=== PATIENT | female | born 1990 | race Caucasian/White ===

== ENCOUNTER 2023-08-20 13:01 | Outpatient (RCR) | payer BC, SELFPAY ==
[2023-08-20 14:12] LABS: HCG Quantitative 61 mIU/mL
[2023-08-22 15:39] LABS: HCG Quantitative 23 mIU/mL
== END 2023-08-27 17:26 | disposition home or self-care (01) ==
LOC: LAB 13:01
PROVIDERS: PCP Family Medicine; Visit Provider Obstetrics & Gynecology
DX: N92.6 Irregular menstruation, unspecified (principal)
CPT/HCPCS: 36415; 84702

== ENCOUNTER 2024-01-28 11:30 | Outpatient (OUT) | payer BC, SELFPAY ==
--- NOTE | 2024-01-28 11:00 | US_ITS ---
The [address] [address] Patient Name: NOHELIA CASTILLO MRN: [id number] date: 1990 Sex: F Assigned Patient Location: [facility] Current Patient Location: [facility] Accession/Order Number: [id number] Exam Date: 01/28/2024 11:00 Report Date: 01/28/2024 11:59 At the request of: TONY SORIANO Procedure: US OB transvaginal EXAMINATION: US OB transvaginal HISTORY: MISSED MENSES COMPARISON: No relevant comparison available. FINDINGS: GESTATIONAL SAC: Present and normal appearing. YOLK SAC: Present and normal appearing. POLE: Present and normal appearing. CARDIAC: Present. UTERUS: Normal size and appearance. OVARIES: Right: Corpus lutein cyst. Left: Normal. CERVIX: 3.5 cm in length and closed. CUL-DE-SAC: Normal. OTHER: None. AGE BY LMP: 9 weeks 1 day PAUL BY LMP: 08/31/2024 AGE BY US CRL: 9 weeks 0 days PAUL BY US CRL: 09/01/2024 US/US OB transvaginal IMPRESSION: 1. Single live intrauterine . Electronically authenticated by: DAVID REYES Date: 01/28/2024 11:59
--- OUTSIDE RECORDS SUMMARY | 2024-01-28 11:35 | XMS_ITS | CCD ---
Author Organization [facility] Informat ion Partnership [facility] Care Team Providers Care Solid Waste Facility Supervisor Name Role Phone BABATUNDE BISHOP Attending Unavailable DR GALA TALLEY Primary Care Unavailable RICHARD ALVAREZ Consulting UnavailBABATUNDE Tena Admitting Unavailable DAVID LANIER Consulting Unavailable SHAIKH HIDALGO Attending Unavailable Medications Current Medications Medication Drug Class(es) Dates Sig (Normalized) Sig (Original) 12 hr buPROPion hydrochloride 150 mg extended release oral tablet (1 source) Aminoketone Start: 4 take 1 tablet by mouth once daily Bupropion Hcl (Wellbutrin Sr) 150 mg tablet sustained-release 12 hr Active 150 MG PO Daily October 25, 2023 12:00am methylPREDNISolone 4 mg oral tablet (1 source) Corticosteroid Start: 4 take 1 tablet by mouth once Methylprednisolone (Medrol (Geraldo)) 4 mg tablets,dose pack Active 0 PO per package directions 1 October 25, 2023 12:00am PO PER PKG DIR for 6 days Problems Problem Classification Problem Date Documented Da te Episodic/Chronic E Codes: Natural/environment (1 source) Overexertion from prolonged static or awkward postures, initial encounter; Translations: [OVEREXERT PROLNG STAT/AWK PST INIT] Onset: 09-26-2022 Episodic E Codes: Unspecified (1 source) Activity, walking an animal; Translations: [ACTIVITY WALKING AN ANIMAL] Onset: 09-26-2022 Episodic Other non-traumatic joint disorders (4 sources) Pain in right knee; Translations: [PAIN IN RIGHT KNEE] Onset: 09-25-2022 Episodic Sprains and strains (1 source) Sprain of unspecified site of right knee, initial encounter; Translations: [SPRAIN UNS SITE RT KNEE INITIAL] Onset: 09-26-2022 Episodic Results Test Name Value Interpretation Reference Range Facility No Panel InformationOrdered By: Caitlin Art on 10-25-2023 Quick Strep (POC) [facility] XR KNEE RT 4V or >on 023 XR KNEE RT 4V or > XR KNEE RT 4V or >: HISTORY: Pain in right knee. COMPARISON: None available. TECHNIQUE: 4 radiographic view(s) obtained. FINDINGS: BONES/JOINT SPACES: On the patella sunrise view there is mild cortical displacement in the lateral femoral condyle which may be artifactual and less likely due to an acute fracture. There is otherwise no acute fracture or dislocation. Joint spaces appear normal. There are no other significant findings. SOFT TISSUES: Normal. IMPRESSION: 1. Mild cortical displacement on the patellofemoral sunrise view in the lateral femoral condyle which may be artifactual but a mildly displaced fracture cannot be excluded. Recommend correlation with point tenderness in this region and consider follow up radiographs in 7-10 days. 2. Otherwise no acute osseous abnormality. Electronically authenticated by: DAVID LANIER Date: 2022-09-25 22:04 Normal [facility] Vital Signs Date Time Vital Sign Value Performing Clinician Faci lity 10-25-2023 10:40-0400 Body height 162.56 cm [facility] 10-25-2023 10:40-0400 Body mass index (BMI) [Ratio] 25.7 kg/m2 [facility] 10-25-2023 10:40-0400 Body temperature 98.2 [degF] [facility] 10-25-2023 10:40-0400 Body weight 68.03 kg [facility] 10-25-2023 10:40-0400 Heart rate 89 /min [facility] 10-25-2023 10:40-0400 Respiratory rate 16 /min [facility] 10-25-2023 10:40-0400 SaO2% (BldA) [Mass fraction] 99 % [facility] Encounters Encounter Date Encounter Type Care Provider Facility Start: 12-17-2023 End: 12-17-2023 ambulatory SHAIKH GWEN Not Available Start: 10-25-2023 End: 10-25-2023 ambulatory [facility] Work Phone: Start: 10-25-2023 End: 10-25-2023 Patient encounter procedure [facility] Work Phone: Start: 09-25-2022 End: 09-25-2022 ambulatory BABATUNDE DIAB . Facility: Procedures Date Procedure Procedure Detail Performing Clinician Start: 10-25-2023 Quick Strep (POC) Payers Date Payer Category Payer Unknown [id number] [id number] [id number] 1990 Unknown [id number] [id number] [id number] 1957 Unknown [id number] Social History Date Type Detail Facility Start: 10-25-2023 Tobacco smoking stat us NHIS Never smoked tobacco (finding) [facility] Start: 1990 Sex Assigned At Female F [facility] Evaluation note Note Date & Type Note Facility Evaluation note No assessment information availa ble [facility] Work Phone: Summary Purpose Family History No Family History Records Found Relationship Condition Age at Onset Recorded Date/T steve father Diabetes mellitus Unknown Cerebrovascular accident (CVA) Unknown Advance Directives No Advanced Directives Records Found Advance Directive Response Recorded Date/ Time Advance Directives No October 24 9:52am Chief Complaint and Reason for Visit Chief Complaint Sore throat, fever, congestion Additional Source Comments INFORMATION SOURCE (unrecogn ized section and content) DATE CREATED AUTHOR 09/27/[address] [facility] DATE CREATED AUTHOR AUTHOR'S ORGANIZ ATION 12/20/2023 [facility] EPIC Care Teams (unrecognized sec tion and content) Team Status: Active Member Role Status Dates Gala Talley MD Primary Care Provider Active Team Status: Inactive Member Role Status Dates Gala Talley MD Primary Care Provider Active S tart: October 25, 2023 End: October 25, 2023 SIMI White Attending Provider Active S tart: October 25, 2023 End: October 25, 2023 Goals (unrecognized section and content) Goals may be documented in a n alternate section FOR RECORDS PERTAINING TO PATIENTS WHO ARE OR HAVE BEEN ENROLLED IN A CHEMICAL DEPENDENCY/SUBSTANCEABUSE PROGRAM, SOME INFORMATION MAY BE OMITTED. This clinical summary was aggregated from multiple sources. Caution should be exercised in using it in the provision of clinical care. This summary normalizes information from multiple sources, and as a consequence, information in this document may materially change the coding, format and clinical context of patient data. In addition, data may be omitted in some cases. CLINICAL DECISIONS SHOULD BE BASED ON THE PRIMARY CLINICAL RECORDS. [facility] [employer] [facility]. provides no warranty or guarantee of the accuracy or completeness of information in this document.
== END 2024-01-28 11:31 | disposition home or self-care (01) ==
LOC: NOMS 11:31
PROVIDERS: PCP Family Medicine; Visit Provider Obstetrics & Gynecology
DX: Z34.91 Encounter for supervision of normal pregnancy, unspecified, first trimester (principal); Z3A.09 9 weeks gestation of pregnancy; N92.6 Irregular menstruation, unspecified
CPT/HCPCS: 76817

== ENCOUNTER 2024-02-04 11:20 | Outpatient (OUT) | payer BC, SELFPAY ==
[2024-02-04 11:51] LABS: BOX Test Sent Out Y
[2024-02-04 12:07] LABS: Estimated Average Glucose 103 mg/dL; Glycohemoglobin A1C 5.2 % (4.5-6.2)
[2024-02-04 12:09] LABS: Basophils Percent Auto 0.3 % (0.2-2.0); Eosinophils Absolute Auto 0.1 10^3/uL (0.0-0.7); Eosinophils Percent Auto 1.5 % (0.9-7.0); Hematocrit 35.9 % (36.0-48.0); Hemoglobin 11.5 g/dL (12.0-16.0); Immature Granulocytes Abs Auto 0.02 10^3/uL (0.00-0.03); Immature Granulocytes Pct Auto 0.3 % (0.0-0.5); Lymphocytes Absolute Auto 1.5 10^3/uL (1.2-3.8); Mean Corpuscular Hemoglobin 26.2 pg (26.7-34.0); Mean Corpuscular Volume 81.8 fL (81.0-99.0); Mean Platelet Volume 10.3 fL (9.5-13.5); Monocytes Absolute Auto 0.3 10^3/uL (0.3-0.8); Monocytes Percent Auto 4.6 % (1.7-12.0); Neutrophils Absolute Auto 5.5 10^3/uL (1.4-6.5); Neutrophils Percent Auto 73.3 % (43.0-75.0); Platelet Count 266 10^3/uL (150-450); Red Blood Count 4.39 10^6/uL (4.20-5.40); Red Cell Distribution Width 15.4 % (11.0-15.0); White Blood Count 7.5 10^3/uL (4.0-11.0)
[2024-02-05 05:07] LABS: HIV Ab/p24 Ag Screen Non Reactive (Non Reactive); Rubella Antibodies, IgG 1.91 index (Immune >0.99)
[2024-02-05 06:09] LABS: HBsAg Screen Negative (Negative); HCV Antibody Non Reactive (Non Reactive)
[2024-02-05 12:10] LABS: Rapid Plasma Reagin, Quant Non Reactive titer (NonRea<1:1)
== END 2024-02-04 11:21 | disposition home or self-care (01) ==
LOC: LAB 11:22
PROVIDERS: PCP Family Medicine; Visit Provider Obstetrics & Gynecology
DX: Z34.80 Encounter for supervision of other normal pregnancy, unspecified trimester (principal)
CPT/HCPCS: 36415; 83036; 85025; 86592; 86762; 86803; 86850; 86900; 86901; 87086; 87340; 87389

== ENCOUNTER 2024-03-31 19:13 | Outpatient (REF) | payer BC, SELFPAY ==
--- OUTSIDE RECORDS SUMMARY | 2024-03-31 19:17 | XMS_ITS | CCD ---
Author Organization [facility] Informat ion Partnership [facility] Care Team Providers Care Diamond Sawer Name Role Phone BABATUNDE BISHOP Attending Unavailable DR GALA TALLEY Primary Care Unavailable RICHARD ALVAREZ Consulting UnavailBABATUNDE Tena Admitting Unavailable DAVID LANIER Consulting Unavailable SHAIKH HIDALGO Attending Unavailable TONY SORIANO Attending Unavailable Medications Current Medications Medication Drug [...] Caitlin Art on 10-25-2023 Quick Strep (POC) [facility] XR KNEE RT 4V or >on [...] by: DAVID LANIER Date: 2022-09-25 22:04 Normal [facility] Vital Signs Date Time Vital Sign Value Performing Clinician Faci lity 10-25-2023 10:40-0400 Body height 162.56 cm [facility] 10-25-2023 10:40-0400 Body mass index (BMI) [Ratio] 25.7 kg/m2 [facility] 10-25-2023 10:40-0400 Body temperature 98.2 [degF] [facility] 10-25-2023 10:40-0400 Body weight 68.03 kg [facility] 10-25-2023 10:40-0400 Heart rate 89 /min [facility] 10-25-2023 10:40-0400 Respiratory rate 16 /min [facility] 10-25-2023 10:40-0400 SaO2% (BldA) [Mass fraction] 99 % [facility] Encounters Encounter Date Encounter Type Care Provider Facility Start: 03-03-2024 End: 03-03-2024 ambulatory TONY SORIANO Not Available Start: 01-28-2024 End: 01-28-2024 ambulatory SHAIKH KRAIGWAD Not Available Start: 12-17-2023 End: 12-17-2023 ambulatory SHAIKH KRAIGWAD Not Available Start: 10-25-2023 End: 10-25-2023 ambulatory [facility] Work Phone: Start: 10-25-2023 End: 10-25-2023 Patient encounter procedure [facility] Work Phone: Start: 09-25-2022 End: 09-25-2022 ambulatory BABATUNDE DIAB . Facility: Procedures Date Procedure Procedure Detail Performing Clinician Start: 10-25-2023 Quick Strep (POC) Payers Date Payer Category Payer Unknown [id number] 2.16.84 [id number] 1990 Unknown [id number] 2.16.84 [id number] 1990 Unknown [id number] 2.16.84 [id number] 1990 Unknown [id number] 2.16.84 [id number] 1957 Unknown [id number] Social History Date Type Detail Facility Start: 10-25-2023 Tobacco smoking stat us WVIS Never smoked tobacco (finding) [facility] Start: 1990 Sex Assigned At Female F [facility] Evaluation note Note Date & Type Note Facility Evaluation note No assessment information availa [facility] Work Phone: Summary Purpose Family History No Family History Records Found Relationship Condition Age at Onset Recorded Date/T steve father Diabetes mellitus Unknown Cerebrovascular accident (CVA) Unknown Advance Directives No Advanced Directives Records Found Advance Directive Response Recorded Date/ Time Advance Directives No October 24 024 9:52am Chief Complaint and Reason for Visit Chief Complaint Sore throat, fever, congestion Additional Source Comments INFORMATION SOURCE (unrecogn ized section and content) DATE CREATED AUTHOR 09/27/[address] [facility] DATE CREATED AUTHOR AUTHOR'S ORGANIZ ATSANDRA 03/06/2024 [facility] d[facility] EPIC Care Teams (unrecognized sec tion and content) Team Status: Active Member Role Status Dates Gala Talley MD Primary Care Provider Active Team Status: Inactive Member Role Status Dates Gala Talley MD Primary Care Provider Active S tart: October 25, 2023 End: October 25, 2023 ZELDA WhiteC Attending Provider Active S tart: October 25, [...] BE BASED ON THE PRIMARY CLINICAL RECORDS. [employer] provides no warranty or guarantee of the accuracy or completeness of information in this document.
[2024-04-05 10:07] LABS: Age Gdln ACOG Testing Note (.); HPV Aptima Negative (Negative); IGP, Aptima HPV, rfx 16/18,45 Note (.)
== END 2024-03-31 19:14 | disposition home or self-care (01) ==
LOC: LAB 19:13
PROVIDERS: PCP Family Medicine; Visit Provider Physician Assistant
DX: Z01.419 Encounter for gynecological examination (general) (routine) without abnormal findings (principal)
CPT/HCPCS: 87624; 88175

== ENCOUNTER 2024-04-14 11:01 | Outpatient (OUT) | payer BC, SELFPAY ==
--- OUTSIDE RECORDS SUMMARY | 2024-04-14 11:06 | XMS_ITS | CCD ---
Author Organization [facility] Informat ion Partnership [facility] Care Team Providers Care Accounts Payable Administrator Name Role Phone BABATUNDE BISHOP Attending Unavailable DR PATRICK TALLEY Primary Care Unavailable RICHARD ALVAREZ Consulting UnavailBABATUNDE Tena Admitting Unavailable DAVID LANIER Consulting Unavailable SHAIKH HIDALGO Attending Unavailable TONY SORIANO Attending Unavailable ZAIDA MCCONNELL Attending Unavailable Medications Current Medications Medication Drug [...] Caitlin Art on 10-25-2023 Quick Strep (POC) [facility] XR KNEE RT 4V or >on [...] by: DAVID LANIER Date: 2022-09-25 22:04 Normal [facility] Vital Signs Date Time Vital Sign Value Performing Clinician Faci lity 10-25-2023 10:40-0400 Body height 162.56 cm [facility] 10-25-2023 10:40-0400 Body mass index (BMI) [Ratio] 25.7 kg/m2 [facility] 10-25-2023 10:40-0400 Body temperature 98.2 [degF] [facility] 10-25-2023 10:40-0400 Body weight 68.03 kg [facility] 10-25-2023 10:40-0400 Heart rate 89 /min [facility] 10-25-2023 10:40-0400 Respiratory rate 16 /min [facility] 10-25-2023 10:40-0400 SaO2% (BldA) [Mass fraction] 99 % [facility] Encounters Encounter Date Encounter Type Care Provider Facility Start: 03-31-2024 End: 03-31-2024 ambulatory ZAIDA MCCONNELL Not Available Start: 03-03-2024 End: 03-03-2024 ambulatory TONY CHRISTIE Not Available Start: 01-28-2024 End: 01-28-2024 ambulatory SHAIKH GWEN Not Available Start: 12-17-2023 End: 12-17-2023 ambulatory SHAIKH MILDREDD Not Available Start: 10-25-2023 End: 10-25-2023 ambulatory [facility] Work Phone: Start: 10-25-2023 End: 10-25-2023 Patient encounter procedure [facility] Work Phone: Start: 09-25-2022 End: 09-25-2022 ambulatory BABATUNDE DIAB . Facility: Procedures Date Procedure Procedure Detail Performing Clinician Start: 10-25-2023 Quick Strep (POC) Payers Date Payer Category Payer Unknown [id number] 2.16.84 [id number] 1990 Unknown [id number] 2.16.84 [id number] 1990 Unknown [id number] 2.16.84 [id number] 1990 Unknown [id number] 2.16.84 [id number] 1992 Unknown [id number] 2.16.84 [id number] 1959 Unknown [id number] Social History Date Type Detail Facility Start: 10-25-[facility]23 [facility] Start: 1990 Sex Assigned At Female F [facility] Evaluation note Note Date & Type Note Facility Evaluation note No assessment information availa ble [facility] Work Phone: Summary Purpose Family History No Family History Records Found Relationship Condition Age at Onset Recorded Date/T steve father Diabetes mellitus Unknown Cerebrovascular accident (CVA) Unknown Advance Directives No Advanced Directives Records Found Advance Directive Response Recorded Date/ Time Advance Directives No October 24, 2 024 9:52am Chief Complaint and Reason for Visit Chief Complaint Sore throat, fever, congestion Additional Source Comments INFORMATION SOURCE (unrecogn ized section and content) DATE CREATED AUTHOR 09/27/[address] [facility] DATE CREATED AUTHOR AUTHOR'Naun SHERMAN 04/01/2024 [facility] Specialists EPIC Care Teams (unrecognized sec tion and content) Team Status: Active Member Role Status Dates Patrick Talley MD Primary Care Provider Active Team Status: Inactive Member Role Status Dates Patrick Talley MD Primary Care Provider Active S [...] BE BASED ON THE PRIMARY CLINICAL RECORDS. [employer] provides no warranty or guarantee of the accuracy or completeness of information in this document.
--- NOTE | 2024-04-14 11:07 | US_ITS ---
[address] [address] Patient Name: NOHELIA CASTILLO MRN: [id number] date: 1990 Sex: F Assigned Patient Location: [facility] Current Patient Location: [facility] Accession/Order Number: [id number] Exam Date: 04/14/2024 11:07 Report Date: 04/14/2024 13:22 At the request of: ZAIDA MCCONNELL Procedure: US OB anatomy EXAMINATION: US OB anatomy, US OB cervical length HISTORY: ANATOMY COMPARISON: No relevant comparison available. TECHNIQUE: Transabdominal sonographic examination was performed for obstetrical and evaluation. FINDINGS: Number: 1 Heart Rate: 140 bpm H.B. /min Amniotic Fluid Volume: Subjectively normal position: Breech presentation, longitudinal lie Placental Location: Anterior, the placental edge is 2.7 cm from the internal os Cervix Length: 4.34 cm , closed Normal anatomy: Lateral ventricles, cerebellum, posterior fossa, nose, lips, orbits, four-chamber heart, RVOT, LVOT, diaphragm, stomach, kidneys, abdominal cord insertion, bladder, umbilical arteries, three-vessel cord, spine, extremities BIOMETRY: BPD: 4.86 cm; 20 weeks 5 days; 72.60 % HC: 17.93 cm; 20 weeks 3 days 52.80 % AC: 15.49 cm; 20 weeks 5 days; 62 % FL: 3.40 cm; 20 weeks 5 days; 61.60 % EFW:372.31 g; 73.80 %, 13 ounces FL/AC: 21.95 FL/BPD: 69.96 HC/AC: 1.16 GESTATIONAL AGE: Age by EDC: 20 weeks 1 day PAUL by EDC: 2024-08-31 Age by current US: 20 weeks 5 days PAUL by current US: 2024-08-27 US/US OB anatomy IMPRESSION: Normal anatomy scan Closed cervix measuring 4.3 cm in length *Reference: [employer] Practice Guideline for the performance of Obstetric Ultrasound Examinations, April 27, 2007. Electronically authenticated by: ALLISON COX Date: 04/14/2024 13:22
--- NOTE | 2024-04-14 11:07 | US_ITS ---
[address] [address] Patient Name: NOHELIA CASTILLO MRN: [id number] date: 1990 Sex: F Assigned Patient Location: [facility] Current Patient Location: [facility] Accession/Order Number: [id number] Exam Date: 04/14/2024 11:07 Report Date: 04/14/2024 13:22 At the request of: ZAIDA MCCONNELL Procedure: US OB cervical length EXAMINATION: US OB anatomy, US OB cervical length HISTORY: ANATOMY COMPARISON: No relevant comparison available. TECHNIQUE: Transabdominal sonographic examination was performed for obstetrical and evaluation. FINDINGS: Number: 1 Heart Rate: 140 bpm H.B. /min Amniotic Fluid Volume: Subjectively normal position: Breech presentation, longitudinal lie Placental Location: Anterior, the placental edge is 2.7 cm from the internal os Cervix Length: 4.34 cm , closed Normal anatomy: Lateral ventricles, cerebellum, posterior fossa, nose, lips, orbits, four-chamber heart, RVOT, LVOT, diaphragm, stomach, kidneys, abdominal cord insertion, bladder, umbilical arteries, three-vessel cord, spine, extremities BIOMETRY: BPD: 4.86 cm; 20 weeks 5 days; 72.60 % HC: 17.93 cm; 20 weeks 3 days 52.80 % AC: 15.49 cm; 20 weeks 5 days; 62 % FL: 3.40 cm; 20 weeks 5 days; 61.60 % EFW:372.31 g; 73.80 %, 13 ounces FL/AC: 21.95 FL/BPD: 69.96 HC/AC: 1.16 GESTATIONAL AGE: Age by EDC: 20 weeks 1 day PAUL by EDC: 2024-08-31 Age by current US: 20 weeks 5 days PAUL by current US: 2024-08-27 US/US OB cervical length IMPRESSION: Normal anatomy scan Closed cervix measuring 4.3 cm in length *Reference: [employer] Practice Guideline for the performance of Obstetric Ultrasound Examinations, April 27, 2007. Electronically authenticated by: ALLISON COX Date: 04/14/2024 13:22
== END 2024-04-14 11:02 | disposition home or self-care (01) ==
LOC: NOMS 11:02
PROVIDERS: PCP Family Medicine; Visit Provider Physician Assistant
DX: Z36.89 Encounter for other specified antenatal screening (principal); Z3A.20 20 weeks gestation of pregnancy
CPT/HCPCS: 76805; 76817

== ENCOUNTER 2024-04-28 09:52 | Outpatient (OUT) | payer BC, SELFPAY ==
--- OUTSIDE RECORDS SUMMARY | 2024-04-28 10:15 | XMS_ITS | CCD ---
Author Organization [facility] Informat ion Partnership [facility] Care Team Providers Care Institute Director Name Role Phone BABATUNDE BISHOP Attending Unavailable [...] Caitlin Art on 10-25-2023 Quick Strep (POC) [facility] XR KNEE RT 4V or >on [...] by: DAVID LANIER Date: 2022-09-25 22:[address] [facility] Vital Signs Date Time Vital Sign Value Performing Clinician Faci lity 10-25-2023 10:40-0400 Body height 162.56 cm [facility] 10-25-2023 10:40-0400 Body mass index (BMI) [Ratio] 25.7 kg/m2 [facility] 10-25-2023 10:40-0400 Body temperature 98.2 [degF] [facility] 10-25-2023 10:40-0400 Body weight 68.03 kg [facility] 10-25-2023 10:40-0400 Heart rate 89 /min [facility] 10-25-2023 10:40-0400 Respiratory rate 16 /min [facility] 10-25-2023 10:40-0400 SaO2% (BldA) [Mass fraction] 99 % [facility] Encounters Encounter Date Encounter Type Care Provider Facility Start: 03-31-2024 End: 03-31-2024 ambulatory ZAIDA MCCONNELL Not Available Start: 03-03-2024 End: 03-03-2024 ambulatory TONY CHRISTIE Not Available Start: 01-28-2024 End: 01-28-2024 ambulatory SHAIKH GWEN Not Available Start: 12-17-2023 End: 12-17-2023 ambulatory SHAIKH MILDREDD Not Available Start: 10-25-2023 End: 10-25-2023 ambulatory [facility] Work Phone: Start: 10-25-2023 End: 10-25-2023 Patient encounter procedure [facility] Work Phone: Start: 09-25-2022 End: 09-25-2022 ambulatory BABATUNDE DIAB . Facility: Procedures Date Procedure Procedure Detail Performing Clinician Start: 10-25-2023 Quick Strep (POC) Payers Date Payer Category Payer Unknown [id number] 2.16.84 [id number] 1990 Unknown [id number] 2.16.84 [id number] 1990 Unknown [id number] 2.16.84 [id number] 1990 Unknown [id number] 2.16.84 [id number] 1992 Unknown [id number] 2.16.84 [id number] 1959 Unknown [id number] Social History Date Type Detail Facility Start: 10-25-2023 [facility] Start: 1990 Sex Assigned At Female F [facility] Evaluation note Note Date & Type Note Facility Evaluation note No assessment information availa ble [facility] Work Phone: Summary Purpose Family History No [...] pital DATE CREATED AUTHOR AUTHOR'Naun SHERMAN 04/01/2024 [facility] d[facility] Specialists EPIC Care Teams (unrecognized [...] BE BASED ON THE PRIMARY CLINICAL RECORDS. [employer] provides no warranty or guarantee of the accuracy or completeness of information in this document.
[2024-04-30 01:12] LABS: AFP Value 60.3 ng/mL (.); Gest. Age on Collection Date 22.1 weeks (.); Insulin Dep Diabetes No (.); Maternal Age At EDD 32.6 yr (.); OSBR Risk 1 IN 10000 (.); Results Report (.)
== END 2024-04-28 09:53 | disposition home or self-care (01) ==
PROVIDERS: PCP Family Medicine; Visit Provider Obstetrics & Gynecology
DX: Z34.92 Encounter for supervision of normal pregnancy, unspecified, second trimester (principal)
CPT/HCPCS: 36415; 82105

== ENCOUNTER 2024-05-12 12:59 | Outpatient (OUT) | payer BC, SELFPAY ==
--- NOTE | 2024-05-12 13:02 | US_ITS ---
[address] [address] Patient Name: NOHELIA CASTILLO MRN: [id number] date: 1990 Sex: F Assigned Patient Location: [facility] Current Patient Location: [facility] Accession/Order Number: [id number] Exam Date: 05/12/2024 13:04 Report Date: 05/12/2024 14:32 At the request of: TONY SORIANO Procedure: US OB placenta EXAMINATION: US OB placenta, US OB growth, US OB cervical length HISTORY: LOW LYING PLACENTA COMPARISON: No relevant comparison available. FINDINGS: Heart Rate: 134 bpm Amniotic Fluid Volume: 19.6 cm. Largest fluid pocket 5.1 cm Number: 1 Position: Cephalic presentation, longitudinal lie) Placenta: Anterior. The placental edge is 7.5 cm from the internal cervical os Cervix: Closed, 5.5 cm BIOMETRY: BPD: 5.88 cm, 24 weeks 0 days, 40%) HC: 22.37 cm, 24 weeks 3 days, 41%) AC: 19.7 cm, 24 weeks 3 days, 49%) FL: 4.39 cm, 24 weeks 3 days, 46% EFW: 690 g, 1 lb. 8 oz., 52% FL/AC: 22.27 FL/BPD: 74.66 HC/AC: 1.13 GESTATIONAL AGE: Age by EDC: 24 weeks 1 day) PAUL by EDC: 08/31/2024) Age by US: 24 weeks 2 days) PAUL by US: 08/30/2024) US/US OB placenta IMPRESSION: Normal interval growth Closed cervix measuring 5.5 cm Placental edge is 7.5 cm from the internal cervical os Electronically authenticated by: ALLISON COX Date: 05/12/2024 14:32
--- NOTE | 2024-05-12 13:02 | US_ITS ---
[address] [address] Patient Name: NOHELIA CASTILLO MRN: [id number] date: 1990 Sex: F Assigned Patient Location: [facility] Current Patient Location: [facility] Accession/Order Number: [id number] Exam Date: 05/12/2024 13:04 Report Date: 05/12/2024 14:32 At the request of: TONY SORIANO Procedure: US OB cervical length EXAMINATION: US OB placenta, US OB growth, US OB cervical length HISTORY: LOW LYING PLACENTA COMPARISON: No relevant comparison available. FINDINGS: Heart Rate: 134 bpm Amniotic Fluid Volume: 19.6 cm. Largest fluid pocket 5.1 cm Number: 1 Position: Cephalic presentation, longitudinal lie) Placenta: Anterior. The placental edge is 7.5 cm from the internal cervical os Cervix: Closed, 5.5 cm BIOMETRY: BPD: 5.88 cm, 24 weeks 0 days, 40%) HC: 22.37 cm, 24 weeks 3 days, 41%) AC: 19.7 cm, 24 weeks 3 days, 49%) FL: 4.39 cm, 24 weeks 3 days, 46% EFW: 690 g, 1 lb. 8 oz., 52% FL/AC: 22.27 FL/BPD: 74.66 HC/AC: 1.13 GESTATIONAL AGE: Age by EDC: 24 weeks 1 day) PAUL by EDC: 08/31/2024) Age by US: 24 weeks 2 days) PAUL by US: 08/30/2024) US/US OB cervical length IMPRESSION: Normal interval growth Closed cervix measuring 5.5 cm Placental edge is 7.5 cm from the internal cervical os Electronically authenticated by: ALLISON COX Date: 05/12/2024 14:32
--- NOTE | 2024-05-12 13:02 | US_ITS ---
[address] [address] Patient Name: NOHELIA CASTILLO MRN: [id number] date: 1990 Sex: F Assigned Patient Location: [facility] Current Patient Location: [facility] Accession/Order Number: [id number] Exam Date: 05/12/2024 13:04 Report Date: 05/12/2024 14:32 At the request of: TONY SORIANO Procedure: US OB growth EXAMINATION: US OB placenta, US OB growth, US OB cervical length HISTORY: LOW LYING PLACENTA COMPARISON: No relevant comparison available. FINDINGS: Heart Rate: 134 bpm Amniotic Fluid Volume: 19.6 cm. Largest fluid pocket 5.1 cm Number: 1 Position: Cephalic presentation, longitudinal lie) Placenta: Anterior. The placental edge is 7.5 cm from the internal cervical os Cervix: Closed, 5.5 cm BIOMETRY: BPD: 5.88 cm, 24 weeks 0 days, 40%) HC: 22.37 cm, 24 weeks 3 days, 41%) AC: 19.7 cm, 24 weeks 3 days, 49%) FL: 4.39 cm, 24 weeks 3 days, 46% EFW: 690 g, 1 lb. 8 oz., 52% FL/AC: 22.27 FL/BPD: 74.66 HC/AC: 1.13 GESTATIONAL AGE: Age by EDC: 24 weeks 1 day) PAUL by EDC: 08/31/2024) Age by US: 24 weeks 2 days) PAUL by US: 08/30/2024) US/US OB growth IMPRESSION: Normal interval growth Closed cervix measuring 5.5 cm Placental edge is 7.5 cm from the internal cervical os Electronically authenticated by: ALLISON COX Date: 05/12/2024 14:32
--- OUTSIDE RECORDS SUMMARY | 2024-05-12 13:05 | XMS_ITS | CCD ---
Author Organization [facility] Care Team Providers Care Program Coordinator Executive Education Name Role Phone BABATUNDE BISHOP Attending Unavailable DR PATRICK TALLEY Primary Care Unavailable GUALBERTO ., RICHARD PINK Consulting UnavailBABATUNDE Tena Admitting Unavailable DAVID LANIER Consulting Unavailable SHAIKH MUHAMMAD Attending Unavailable TONY CREWS Attending Unavailable AGA MCCONNELL Attending Unavailable TONY CREWS Attending Shaikh Dotson MD Primary Care Provider Shaikh Muhammad MD Unavailable Allergies Allergy Classification Reported Allergen(s) Allergy Type Date of Onset Reaction(s) Facility (3 sources) Sulfamethoxazole / Trimethoprim Drug Allergy 9 [facility] Healthcare Work Phone: Medications Current Medications Medication Drug Class(es) Dates Sig (Normalized) Sig (Original) 24 hr buPROPion hydrochloride 150 mg extended release oral tablet (4 sources) Aminoketone Start: 03-08-2024 End: 09-04-2024 take 1 tablet by mouth once daily buPROPion XL (Wellbutrin XL) 150 MG 24 hr tablet Indications: Bipolar depression (CMS/HCC) Take 1 tablet (150 mg) by mouth Daily Do not crush, chew, or split. 90 tablet 1 03/08/2024 09/04/2024 Active Start: 10-25-2023 take 1 tablet by char th once daily Bupropion Hcl (Wellbutrin Sr) 150 mg tablet sustained-release 12 hr Active 150 MG PO Daily October 25, 2023 12:00am methylPREDNISolone 4 mg oral tablet (1 source) Corticosteroid Start: 10-25-2023 take 1 tablet by mouth once Methylprednisolone (Medrol (Geraldo)) 4 mg tablets,dose pack Active 0 PO per package directions 1 October 25, 2023 12:00am PO PER PKG DIR for 6 days Problems Active Problems Problem Classification Problem Date Documented Date Episodic/Chronic E Codes: Natural/environment (1 source) Overexertion from prolonged static or awkward postures, initial encounter; Translations: [OVEREXERT PROLNG STAT/AWK PST INIT] Onset: 09-26-2022 Episodic E Codes: Unspecified (1 source) Activity, walking an animal; Translations: [ACTIVITY WALKING AN ANIMAL] Onset: 09-26-2022 Episodic Female infertility (3 sources) Female infertility; Translations: [Female infertility, unspecified] Onset: 12-17-2023 12-17-2023 Chronic Hemorrhage during ; abruptio placenta; placenta previa (2 sources) Low lying placenta; Translations: [Low lying placenta NOS or without hemorrhage, unspecified trimester] 04-28-2024 Episodic Mood disorders (3 sources) Bipolar disorder, most recent episode depression; Translations: [Bipolar disorder, unspecified] Onset: 07-02-2023 07-02-2023 Chronic Other complications of (2 sources) Supervision of with other poor reproductive or obstetric history, unspecified trimester; Translations: [ with other poor obstetric history] 04-28-2024 Episodic Other non-traumatic joint disorders (4 sources) Pain in right knee; Translations: [PAIN IN RIGHT KNEE] Onset: 09-25-2022 Episodic Other and delivery including normal (2 sources) Second trimester ; Translations: [Encounter for supervision of normal , unspecified, second trimester] 04-28-2024 Episodic Other screening for suspected conditions (not mental disorders or infectious disease) (2 sources) Patient encounter status; Translations: [Encounter for screening for diabetes mellitus] 04-28-2024 Episodic Residual codes; unclassified (2 sources) Gestation period, 22 weeks; Translations: [22 weeks gestation of ] 04-28-2024 Episodic Sprains and strains (1 source) Sprain of unspecified site of right knee, initial encounter; Translations: [SPRAIN UNS SITE RT KNEE INITIAL] Onset: 09-26-2022 Episodic Unclassified (3 sources) OB Reminders Onset: 02-06-2024 02-06-2024 Unclassified (3 sources) Patient on antidepressant monitoring plan Onset: 03-08-2024 03-08-2024 Unclassified (3 sources) Baseline PHQ-9 Onset: 03-08-2024 03-08-2024 Past or Other Problems Problem Classification Problem Date Documented Da te Episodic/Chronic Other female genital disorders (3 sources) Recurrent loss; Translations: [Recurrent loss without current ] Onset: 12-17-2023 12-17-2023 Episodic Results Test Name Value Interpretation Reference Range Facility AFP, SERUM, OPEN SPINA BIFID Aon 04-30-2024 AFP MOM 0.84 . [facility] AFP VALUE 60.3 ng/mL . [facility] COMMENT: Comment . [facility] Comment on above: Georgie Correia , Ph.D., [facility] Director References: Available Upon Request. Multiples Of Median Cutoffs For AFP Elevations Baird 2.5 Black 2.8 IDD 2.0 Twins 4.5 Abbreviation Definitions IDD - Insulin Dep Diabetes OSBR - Open Spina Bifida Risk For further inquiries contact [facility] at [phone]. This test was developed and its performance characteristics determined by [employer]. It has not been cleared or approved by the Food and Drug Administration. Performed at: [facility] [employer] [address] [place], [place] [id number] Cellar Hand: Lynn Can [facility], Phone: [phone] GEST. AGE ON COLLECTION DATE 22.1 . weeks [facility] GESTAT. AGE BASED ON LMP . [facility] Comment on above: Recalculations are n ot recommended when gestational dating by LMP and ultrasound are within 10 days. INSULIN DEP DIABETES No . [facility] INTERPRETATION Comment . [facility] Comment on above: Interpretation: Scre en Negative This result is screen negative for OSB. The AFP MoM calculated is based on the gestational age provided. MS-AFP can identify up to 80% of open neural tube defects. Closed neural tube defects and some open defects may not be detected by this test. This test does not screen for Down Syndrome or Trisomy 18. If screening for Down Syndrome or Trisomy 18 is desired, contact [facility] to discuss available options. The [employer] recommends amniocentesis be offered to women age 35 and older. [age] [facility] MULTIPLE GESTATION No . [facility] OS[place] [id number] . [facility] RACE . [facility] RESULTS Report . [facility] TEST RESULTS: Negative . [facility] WEIGHT 155 . lbs [facility] N N LMP [id number] 1 18 N 1 Y 155 N N N N N White/ [facility] No Panel InformationOrdered By: Caitlin Art on 10-25-2023 Quick Strep (POC) [facility] XR KNEE RT 4V or >on [...] by: DAVID LANIER Date: 2022-09-25 22:04 Normal [facility] Vital Signs Date Time Vital Sign Value Performing Clinician Facility 04-28-2024 13:15-0400 Body mass index (BMI) [Ratio] 27.29 kg/m2 [employer] DO Work Phone: [facility] 04-28-2024 13:15-0400 Body weight 72.12 kg Tony Eleonora DO Work Phone: [facility] 04-28-2024 13:15-0400 Diastolic blood pressure 70 mm[Hg] Tony Eleonora DO Work Phone: [facility] 04-28-2024 13:15-0400 Systolic blood pressure 110 mm[Hg] Tony Eleonora DO Work Phone: [facility] 10-25-2023 10:40-0400 Body height 162.56 cm [facility] 10-25-2023 10:40-0400 Body mass index (BMI) [Ratio] 25.7 kg/m2 [facility] 10-25-2023 10:40-0400 Body temperature 98.2 [degF] [facility] 10-25-2023 10:40-0400 Body weight 68.03 kg [facility] 10-25-2023 10:40-0400 Heart rate 89 /min [facility] 10-25-2023 10:40-0400 Respiratory rate 16 /min [facility] 10-25-2023 10:40-0400 SaO2% (BldA) [Mass fraction] 99 % [facility] Encounters Encounter Date Encounter Type Care Provider Facility Start: 04-28-2024 End: 04-30-2024 [facility] Result Encounter Generic External Data Provider [facility] Unsolicited Start: 04-28-2024 End: 04-30-2024 [facility] Result Encounter Generic External Data Provider [facility] External [facility] Unsolicited Start: 04-28-2024 End: 04-28-2024 flow sheet Tony Eleonora DO Work Phone: [facility] Comment on above: Second trimester pre gnancy; 22 weeks gestation of ; Diabetes mellitus screening; Low-lying placenta; H/O intrauterine growth restriction in prior , currently Start: 04-28-2024 End: 04-28-2024 ambulatory TONY ELEONORA Not Available Start: 03-31-2024 End: 03-31-2024 ambulatory AGA MCCONNELL Not Available Start: 03-03-2024 End: 03-03-2024 ambulatory TONY ELEONORA Not Available Start: 01-28-2024 End: 01-28-2024 ambulatory BELCHER FAWWAD Not Available Start: 12-17-2023 End: 12-17-2023 ambulatory BELCHER FAWWAD Not Available Start: 10-25-2023 End: 10-25-2023 ambulatory [facility] Work Phone: Start: 10-25-2023 End: 10-25-2023 Patient encounter procedure [facility] Work Phone: Start: 09-25-2022 End: 09-25-2022 ambulatory BABATUNDE DIAB . Facility: Procedures Date Procedure Procedure Detail Performing Clinician Start: 04-28-2024 AFP, SERUM, OPEN SPI NA BIFIDA Tonyaysha Crews DO Work Phone: Start: 03-31-2024 Microscopic observat ion [Identifier] in Cervix by Cyto stain Tony Crews DO Work Phone: Start: 10-25-2023 Quick Strep (POC) Plan of Treatment Date Care Activity Detail Author Start: 03-31-2027 Screening for malign ant neoplasm of cervix [facility] Start: 05-26-2024 End: 05-26-2024 Patient encounter procedure 05/26/2024 1:30 PM EDT Routine [facility] [address] [address] Aga Mcconnell PA [address] [place], [place] [id number] [facility] Start: 05-12-2024 End: 05-12-2024 Professional / ancillary services management 05/12/2024 1:00 PM EDT Ancillary Procedure [facility] [address] [place] [address] [facility] Start: 04-28-2024 End: 04-28-2025 CBC panel - Blood by Automated count CBC Lab Routine Diabetes mellitus screening Expected: 04/28/2024 (Approximate), Expires: 04/28/2025 [facility] Work Phone: Comment on above: Expected: 04/28/2024 (Approximate), Expires: 04/28/2025 Start: 04-28-2024 End: 04-28-2025 Measurement of glucose 1 hour after glucose challenge for glucose tolerance test Glucose tolerance, 1 hour Lab Routine Diabetes mellitus screening Expected: 04/28/2024 (Approximate), Expires: 04/28/2025 [facility] Comment on above: Expected: 04/28/2024 (Approximate), Expires: 04/28/2025 Start: 04-28-2024 End: 04-28-2025 US for [facility] Comment on above: Expected: 04/28/2024 (Approximate), Expires: 04/28/2025 Start: 03-28-2024 Influenza vaccination Influenz a Vaccine (#1) [facility] Start: 01-04-2022 Screening for malign ant neoplasm of cervix HPV/Cotest [facility] Payers Date Payer Category Payer Unknown BCBS BCBS [id number] 2020-Present [phone] [address] [place] [address] [id number] 1990 Unknown [id number] 1990 Unknown [id number] 1990 Unknown [id number] 1990 Unknown [id number] 1990 Unknown [id number] 1990 Unknown [id number] 1957 Unknown [id number] Social History Date Type Detail Facility Start: 10-25-2023 End: 12-17-2023 Tobacco smoking status MOIS Never smoked tobacco (finding) [facility] Start: 1990 Sex Assigned At Female F [facility] Start: 12-17-2023 Tobacco use and exposure Smokeless tobacco non-user [facility] Start: 04-28-2024 Alcoholic beverage intake Lifetime non-drinker (finding) [facility] Start: 12-17-2023 History of Social function [facility] Start: 12-17-2023 Tobacco use panel [facility] Start: 12-09-2023 [facility] Start: 08-04-2023 Gender identity Identifies as female gender (finding) [facility] Start: 08-04-2023 Sexual orientation Heterosexual (fin ding) [facility] NEGATED: Highlighted rowStart: HARPREETF History of tobacco use Passive smoker [facility] Goals Date Patient Goal Desired Activity /State Personal health goal Personal health goal History of Present illness Narrative 04-28-2024 Madalyn Contreras, VAC PRESS OPERATOR - 04/28/2024 1:10 PM EDT Note Date & Type Note Facility 04-28-2024 History of Presen t illness Narrative Reason for Appointment: Patient ID: Madie Leung is a 34 y.o. female who presents for Routine Visit Patient presents today for Return OB appointment. MEDICATIONS Current Outpatient Medications Medication Instructions buPROPion XL (WELLBUTRIN XL) 150 mg, Oral, Daily, Do not crush, chew, or split. 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 Social History Tobacco Use Smoking status: Never Passive exposure: Never Smokeless tobacco: Never Vaping Use Vaping status: Never Used Substance Use Topics Alcohol use: Never Drug use: Never FAMILY HISTORY Family History Problem Relation Name Age of Onset Breast cancer Mother Meryl Migraines Mother Meryl Stroke Father SURGICAL HISTORY History reviewed. No pertinent surgical history. REVIEW OF SYSTEMS Review of Systems: Review of Systems Constitutional: Negative. HENT: Negative. Eyes: Negative. Respiratory: Negative. Cardiovascular: Negative. Gastrointestinal: Negative. Genitourinary: Negative. Musculoskeletal: Negative. Skin: Negative. Neurological: Negative. All other systems reviewed and are negative. Hematological: Negative. Endocrine: Negative. Allergic/Immunologic: Negative. OBJECTIVE Objective: Physical Exam Constitutional: Appearance: Normal appearance. She is well-developed. Cardiovascular: Rate and Rhythm: Normal rate and regular rhythm. Pulmonary: Effort: Pulmonary effort is normal. Breath sounds: Normal breath sounds. Abdominal: General: Bowel sounds are normal. There is no distension. Palpations: Abdomen is soft. Tenderness: There is no abdominal tenderness. There is no guarding or rebound. Musculoskeletal: General: No swelling. Normal range of motion. Right lower leg: No edema. Left lower leg: No edema. Neurological: Mental Status: She is alert and oriented to person, place, and time. Skin: General: Skin is warm and dry. Psychiatric: Mood and Affect: Mood normal. Behavior: Behavior normal. Vitals and nursing note reviewed. Exam conducted with a paper latcher present. Vitals: Estimated body mass index is 27.29 kg/m as calculated from the following: Height as of 12/17/23: 5' 4 . Weight as of this encounter: 159 lb. BP: 110/70 Patient's last menstrual period was 11/25/2023. ASSESSMENT & PLAN ICD-10-CM 1. Second trimester Z34.92 CANCELED: POCT urinalysis dipstick manually resulted 2. 22 weeks gestation of Z3A.22 CANCELED: POCT urinalysis dipstick manually resulted 3. Diabetes mellitus screening Z13.1 CBC Glucose tolerance, 1 hour 4. Low-lying placenta O44.40 US OB PLACENTA W US OB TRANSVAGINAL 5. H/O intrauterine growth restriction in prior , currently O09.299 US OB SCAN FOR GROWTH Pt doing well without complaints. Pt given growth ultrasound to have obtained at 24 weeks and every 4 weeks after for h/o IUGR. Pt placenta is anterior and is 2.7cm from os, pt given placental ultrasound to have obtained with growth. Pt to return in 4 weeks for scheduled OB appt. Documented by Madalyn Contreras LPN on behalf of: Tony Crews DO documented in this encounter [facility] Evaluation note Note Date & Type Note Facility Evaluation note No assessment information availa [facility] Work Phone: Evaluation note Note Date & Type Note Facility Evaluation note Diagnosis Second trimester state, incidental 22 weeks gestation of Diabetes mellitus screening Screening for diabetes mellitus Low-lying placenta Hemorrhage from placenta previa, unspecified as to episode of care H/O intrauterine growth restriction in prior , currently documented in this encounter [facility] Summary Purpose Family History Relationship Condition Age at Onset Recorded Date/T steve father Diabetes mellitus Unknown Cerebrovascular accident (CVA) Unknown Advance Directives Advance Directive Response Recorded Date/ Time Advance Directives No October 24 024 9:52am Chief Complaint and Reason for Visit Chief Complaint Sore throat, fever, congestion Additional Source Comments INFORMATION SOURCE (unrecogn ized section and content) DATE CREATED AUTHOR 09/27/[address] [facility] DATE CREATED AUTHOR AUTHOR'S ORGANIZ ATION 04/30/2024 [facility] Care Teams (unrecognized sec tion and content) Team Status: Active Member Role Status Dates Patrick Talley MD Primary Care Provider Active Team Status: Inactive Member Role Status Dates Patrick Talley MD Primary Care Provider Active S tart: October 25, 2023 End: October 25, 2023 Caitlin Art NP-C Attending Provider Active S tart: October 25, 2023 End: October 25, 2023 Program Coordinator Executive Education Relationship Specialty Start Date End Date Shaikh Muhammad MD [address] [place] [id number] PCP - General Internal Medicine 12/17/23 Shaikh Muhammad MD [address] [place] [place] [id number] PCP - [employer] 01/26/24 Program Coordinator Executive Education Relationship Specialty Start Date End Date Shaikh Muhammad MD [address] [place] [phone] PCP - General Internal Medicine 12/17/23 Shaikh Muhammad MD [address] [place] [phone] PCP - [employer] 01/26/24 Goals (unrecognized section and content) Goals may be documented in a n alternate section Reason for Visit (unrecogniz ed section and content) Reason Comments Routine Visit FOR RECORDS PERTAINING TO PATIENTS WHO ARE [...] BE BASED ON THE PRIMARY CLINICAL RECORDS. [facility] [employer] [facility]. provides no warranty or guarantee of the accuracy or completeness of information in this document.
== END 2024-05-12 13:00 | disposition home or self-care (01) ==
LOC: NOMS 13:00
PROVIDERS: PCP Family Medicine; Visit Provider Obstetrics & Gynecology
DX: O44.40 Low lying placenta NOS or without hemorrhage, unspecified trimester (principal); O09.299 Supervision of pregnancy with other poor reproductive or obstetric history, unspecified trimester; Z3A.24 24 weeks gestation of pregnancy
CPT/HCPCS: 76815; 76816; 76817

== ENCOUNTER 2024-05-19 09:28 | Outpatient (OUT) | payer BC, SELFPAY ==
--- OUTSIDE RECORDS SUMMARY | 2024-05-19 09:51 | XMS_ITS | CCD ---
Author Organization [facility] Care Team Providers Care Human Resources Partner Name Role Phone BABATUNED BISHOP Attending Unavailable DR PATRICK TALLEY Primary [...] sources) Sulfamethoxazole / Trimethoprim Drug Allergy 9 [facility] Healthcare Work Phone: Medications Current Medications Medication [...] BIFID Aon 04-30-2024 AFP MOM 0.84 . [facility] AFP VALUE 60.3 ng/mL . [facility] COMMENT: Comment . [facility] Comment on above: Georgie Correia , Ph.D., [facility] Director References: Available Upon Request. Multiples Of Median Cutoffs For AFP Elevations Baird 2.5 Black 2.8 IDD 2.0 Twins 4.5 Abbreviation Definitions IDD - Insulin Dep Diabetes OSBR - Open Spina Bifida Risk For further inquiries contact [facility] [employer] [facility] at [phone]. This test was developed and its performance characteristics determined by [employer]. It has not been cleared or approved by the Food and Drug Administration. Performed at: [facility] [employer] [address], [place] [id number] Piercing Artist: Lynn Can [facility], Phone: [phone] GEST. AGE ON COLLECTION DATE 22.1 . weeks [facility] GESTAT. AGE BASED ON LMP . [facility] Comment on above: Recalculations are n ot recommended when gestational dating by LMP and ultrasound are within 10 days. INSULIN DEP DIABETES No . [facility] INTERPRETATION Comment . [facility] Comment on above: Interpretation: Scre en Negative [...] Customer Services to discuss available options. The [employer] recommends amniocentesis be offered to women age 35 and older. [age] 32.8 . yr [facility] MULTIPLE GESTATION No . [facility] OSBR RISK [address] [place] [id number] . [facility] RACE . [facility] RESULTS Report . [facility] TEST RESULTS: Negative . [facility] WEIGHT 155 . lbs [facility] N N LMP [id number] 1 18 N 1 Y 155 N N N N N White/ [facility] No Panel InformationOrdered By: Caitlin Art on 10-25-2023 Quick Strep (POC) [facility] XR KNEE RT 4V or >on 023 [...] by: DAVID LANIER Date: 2022-09-25 22:04 Normal [facility] Vital Signs Date Time Vital Sign Value Performing Clinician Facility 04-28-2024 13:15-0400 Body mass index (BMI) [Ratio] 27.29 kg/m2 [facility] DO Work Phone: [facility] 04-28-2024 13:15-0400 Body weight 72.12 kg Tony Eleonora DO Work Phone: [facility] 04-28-2024 13:15-0400 Diastolic blood pressure 70 mm[Hg] Tony Eleonora DO Work Phone: [facility] 04-28-2024 13:15-0400 Systolic blood pressure 110 mm[Hg] Tony Eleonora DO Work Phone: [facility] 10-25-2023 10:40-0400 Body height 162.56 cm [facility] 10-25-2023 10:40-0400 Body mass index (BMI) [Ratio] 25.7 kg/m2 [facility] 10-25-2023 10:40-0400 Body temperature 98.2 [degF] [facility] 10-25-2023 10:40-0400 Body weight 68.03 kg [facility] 10-25-2023 10:40-0400 Heart rate 89 /min [facility] 10-25-2023 10:40-0400 Respiratory rate 16 /min [facility] 10-25-2023 10:40-0400 SaO2% (BldA) [Mass fraction] 99 % [facility] Encounters Encounter Date Encounter Type Care [...] Not Available Start: 10-25-2023 End: 10-25-2023 ambulatory [facility] Work Phone: Start: 10-25-2023 End: 10-25-2023 Patient encounter procedure [facility] Work Phone: Start: 09-25-2022 [...] Screening for malign ant neoplasm of cervix [facility] Start: 05-26-2024 End: 05-26-2024 Patient encounter procedure 05/26/2024 1:30 PM EDT Routine [facility] [address] [place] [address] Aga Mcconnell PA [address] [place], [place] [id number] [facility] Start: 05-12-2024 End: 05-12-2024 Professional / ancillary services management 05/12/2024 1:00 PM EDT Ancillary Procedure [facility] [address] [place] [address] [facility] Start: 04-28-2024 End: 04-28-2025 CBC panel - Blood by Automated count CBC Lab Routine Diabetes mellitus screening Expected: 04/28/2024 (Approximate), Expires: 04/28/2025 [facility] Work Phone: Comment on above: Expected: 04/28/2024 (Approximate), Expires: 04/28/2025 Start: 04-28-2024 End: 04-28-2025 Measurement of glucose 1 hour after glucose challenge for glucose tolerance test Glucose tolerance, 1 hour Lab Routine Diabetes mellitus screening Expected: 04/28/2024 (Approximate), Expires: 04/28/2025 [facility] Comment on above: Expected: 04/28/2024 (Approximate), Expires: 04/28/2025 Start: 04-28-2024 End: 04-28-2025 US for [facility] Comment on above: Expected: 04/28/2024 (Approximate), Expires: 04/28/2025 Start: 03-28-2024 Influenza vaccination Influenz a Vaccine (#1) [facility] Start: 01-04-2022 Screening for malign ant neoplasm of cervix HPV/Cotest [facility] Payers Date Payer Category Payer Unknown BCBS BCBS [id number] 2020-Present [phone] [address] [place] [address] [id number] 1990 Unknown [id number] 1990 Unknown [id number] 1990 Unknown [id number] 1990 Unknown [id number] 1990 Unknown [id number] 1990 Unknown [id number] 1957 Unknown [id number] Social History Date Type Detail Facility Start: 10-25-2023 End: 12-17-2023 Tobacco smoking status ALIS Never smoked tobacco (finding) [facility] Start: 1990 Sex Assigned At Female F [facility] Start: 12-17-2023 Tobacco use and [...] of Present illness Narrative 04-28-2024 Madalyn Contreras, [employer] - 04/28/2024 1:10 PM EDT Note Date [...] Ambulatory Problems Diagnosis Date Noted Bipolar depression ([facility]) 07/02/2023 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 Exam conducted with a nursing techn present. Vitals: Estimated body mass index is [...] Tony Crews DO documented in this encounter [facility] Evaluation note Note Date & Type Note Facility Evaluation note No assessment information availa [facility] Work Phone: Evaluation note Note Date & [...] DATE CREATED AUTHOR AUTHOR'S ORGANIZ ATION 04/30/2024 [facility] Care Teams (unrecognized sec tion and content) Team Status: Active Member Role Status Dates Patrick Talley MD Primary Care Provider Active Team Status: Inactive Member Role Status Dates Patrick Talley MD Primary Care Provider Active S tart: October 25, 2023 End: October 25, 2023 Caitlin Art NP-C Attending Provider Active S tart: October 25, 2023 End: October 25, 2023 Human Resources Partner Relationship Specialty Start Date End Date Shaikh Muhammad MD [address] [place] [id number] PCP - General Internal Medicine 12/17/23 Shaikh Muhammad MD [address] [place] [phone] PCP - [place] 01/26/24 Human Resources Partner Relationship Specialty Start Date End Date Shaikh Muhammad MD [address] [place] [phone] PCP - General Internal Medicine 12/17/23 Shaikh Muhammad MD [address] [place] [phone] PCP - [place] 01/26/24 Goals (unrecognized section and content) Goals [...] BE BASED ON THE PRIMARY CLINICAL RECORDS. [facility]. provides no warranty or guarantee of the accuracy or completeness of information in this document.
[2024-05-19 10:39] LABS: Basophils Percent Auto 0.4 % (0.2-2.0); Eosinophils Absolute Auto 0.2 10^3/uL (0.0-0.7); Eosinophils Percent Auto 1.9 % (0.9-7.0); Hemoglobin 10.3 g/dL (12.0-16.0); Immature Granulocytes Abs Auto 0.03 10^3/uL (0.00-0.03); Immature Granulocytes Pct Auto 0.3 % (0.0-0.5); Lymphocytes Absolute Auto 1.2 10^3/uL (1.2-3.8); Lymphocytes Percent Auto 13.2 % (20.5-60.0); Mean Corpuscular HGB Conc 33.2 g/dL (29.9-35.2); Mean Corpuscular Hemoglobin 27.5 pg (26.7-34.0); Mean Corpuscular Volume 82.9 fL (81.0-99.0); Mean Platelet Volume 10.1 fL (9.5-13.5); Monocytes Absolute Auto 0.6 10^3/uL (0.3-0.8); Monocytes Percent Auto 6.7 % (1.7-12.0); Neutrophils Absolute Auto 6.9 10^3/uL (1.4-6.5); Neutrophils Percent Auto 77.5 % (43.0-75.0); Platelet Count 211 10^3/uL (150-450); Red Blood Count 3.74 10^6/uL (4.20-5.40); Red Cell Distribution Width 14.2 % (11.0-15.0); White Blood Count 8.9 10^3/uL (4.0-11.0)
[2024-05-19 10:45] LABS: Glucose 1 Hour 87 mg/dL (<130)
== END 2024-05-19 09:29 | disposition home or self-care (01) ==
LOC: LAB 09:28
PROVIDERS: PCP Family Medicine; Visit Provider Obstetrics & Gynecology
DX: Z13.1 Encounter for screening for diabetes mellitus (principal)
CPT/HCPCS: 36415; 82950; 85025

== ENCOUNTER 2024-07-04 12:46 | Observation (INO) | payer BC, SELFPAY ==
[2024-07-04 13:02] VITALS: BP 137/79; PULSE 88
[2024-07-04 13:05] VITALS: TEMP 36.5
[2024-07-04 13:38] LABS: Bilirubin Urine NEGATIVE (NEGATIVE); Blood Urine NEGATIVE (NEGATIVE); Clarity Urine CLEAR (CLEAR); Color Urine LT. YELLOW (YELLOW); Glucose Urine UA NEGATIVE (NEGATIVE); Ketones Urine TRACE mg/dL (NEGATIVE); Leukocyte Esterase Urine SMALL (NEGATIVE); Nitrite Urine NEGATIVE (NEGATIVE); Protein Urine NEGATIVE (NEG/TRACE); Specific Gravity Urine 1.015 (1.005-1.025); Urobilinogen Urine 0.2 EU/dL (0.2-1.0)
[2024-07-04 13:39] LABS: Urine Microscopic Indicated YES
[2024-07-04 13:46] LABS: Amorphous Sediment Urine FEW; Bacteria Urine MODERATE #/HPF (NONE SEEN); Cast Seen? NONE SEEN #/LPF (NONE SEEN); Crystals Seen? None Seen #/HPF (None Seen); Mucus Urine TRACE (NONE SEEN); RBC Urine 0-2 #/HPF (0-2); Squamous Epithelial Cell Urine MODERATE #/LPF (NONE/RARE); Urine Culture Indicated YES
--- NOTE | 2024-07-04 15:17 | PC.NURSE ---
1300- Pt arrives to [facility] via ambulatory at this time accompained by . Pt c/o lower back pain and Cxt's and constant abdominal pain. Pt states cxt's started last night and stopped at 3am this morning; pt states the cxt's started back up this morning following feeling a nauseous episode after eating [employer] at work. Pt denies leaking of fluid or vaginal bleeding. Pt denies UTI s/s. Pt denies recent intercourse. Pt had bowel movement yesterday and noted no issues. Pt denies being around individuals with sickness recently. Pt reports feeling movement. Pt states she had been hydrated and keeping food down with no issues. Pt given urine cup for sample.
--- NOTE | 2024-07-04 15:38 | PC.NURSE ---
1427- This RN calls pt preferred pharmacy ([facility] [place], [place]); RN leaves message per pharmacy instructions for 500mg Keflex 500mg PO TID for 7 days, NPI number provided. Pt and name provided.
--- NOTE | 2024-07-04 15:59 | PC.NURSE ---
1423- Discharge instructions provided. Pt verbalizes understanding. Pt discharged home.
== END 2024-07-04 14:23 | disposition home or self-care (01) ==
LOC: FBC 12:48
PROVIDERS: Admitting Provider Obstetrics & Gynecology; PCP Family Medicine; Visit Provider Obstetrics & Gynecology
DX: O47.03 False labor before 37 completed weeks of gestation, third trimester (principal); Z3A.31 31 weeks gestation of pregnancy
CPT/HCPCS: 59025; 81001; 87086; G0378; G0379

== ENCOUNTER 2024-07-12 13:05 | Outpatient (OUT) | payer BC, SELFPAY ==
--- NOTE | 2024-07-12 13:06 | US_ITS ---
[address] [address] Patient Name: NOHELIA CASTILLO MRN: [id number] date: 1990 Sex: F Assigned Patient Location: [facility] Current Patient Location: [facility] Accession/Order Number: [id number] Exam Date: 07/12/2024 13:08 Report Date: 07/12/2024 13:52 At the request of: ZAIDA MCCONNELL Procedure: US OB growth EXAMINATION: US OB growth HISTORY: Size of fetus inconsistent with dates COMPARISON: No relevant comparison available. FINDINGS: Heart Rate: 127 bpm Amniotic Fluid Volume: 10.4 cm, largest fluid pocket 3.6 cm Number: 1 Position: Cephalic presentation, longitudinal lie BIOMETRY: BPD: 8.18 cm; 32 weeks 6 days; 43.70 % HC: 30.14 cm; 33 weeks 3 days; 27.40 % AC: 27.34 cm; 31 weeks 3 days; 13.40 % FL: 6.22 cm; 32 weeks 2 days; 22.20 % EFW: 1881.76 g; 17.60 %, 4 lbs. 2 oz. FL/AC: 22.75 FL/BPD: 76.04 HC/AC: 1.10 GESTATIONAL AGE: Age by EDC: 32 weeks 6 days PAUL by EDC: 2024-08-31 Age by US: 32 weeks 4 days PAUL by US: 2024-09-02 US/US OB growth IMPRESSION: Normal interval growth Electronically authenticated by: ALLISON COX Date: 07/12/2024 13:52
== END 2024-07-12 13:06 | disposition home or self-care (01) ==
LOC: NOMS 13:05
PROVIDERS: PCP Family Medicine; Visit Provider Physician Assistant
DX: O26.843 Uterine size-date discrepancy, third trimester (principal); Z3A.32 32 weeks gestation of pregnancy
CPT/HCPCS: 76816

== ENCOUNTER 2024-08-04 19:54 | Outpatient (REF) | payer BC, SELFPAY ==
[2024-08-08 12:42] LABS: BOX Test Reference Lab FIRELANDS; BOX Test Sent Out GROUP B CULTURE
== END 2024-08-04 19:55 | disposition home or self-care (01) ==
LOC: LAB 19:54
PROVIDERS: PCP Family Medicine; Visit Provider Obstetrics & Gynecology
DX: Z34.93 Encounter for supervision of normal pregnancy, unspecified, third trimester (principal)
CPT/HCPCS: 36415; 87081

== ENCOUNTER 2024-08-25 03:09 | Inpatient (IN) | payer BC, SELFPAY ==
[2024-08-25] VITALS (32 sets, daily range): BP systolic 124–158; BP diastolic 64–93; PULSE 80–112; TEMP 36.1–37.1
--- OUTSIDE RECORDS SUMMARY | 2024-08-25 03:13 | XMS_ITS | CCD ---
Author Organization [facility] Care Team Providers Care Tunnel Form Placing Supervisor Name Role Phone BABATUNDE BISHOP Attending Unavailable DR PATRICK TALLEY Primary Care Unavailable GUALBERTO ., RICHARD PINK Consulting UnavailBABATUNDE Tena Admitting Unavailable DAVID LANIER Consulting Unavailable Sabina HYMAN, Primary Care Provider [phone] Shaikh Muhammad MD Unavailable Patrick Talley MD Primary Care Provider Tony Crews DO Attending Provider [phone] Patrick Talley Primary Care Unavailable Tony Crews Attending Unavailable EleonoraPhilip damony Admitting Unavailable TONY CREWS Attending Unavailable SHAIKH MUHAMMAD Attending Unavailable ELEONORA, TONY Attending Unavailable ENEDINA, AGA Attending Unavailable ELEONORA, TONY Attending Unavailable ENEDINA, AGA Attending Unavailable ELEONORA, TONY Attending Unavailable ENEDINA AGA Attending Unavailable ENEDINA, AGA Attending Unavailable ELEONORA, TONY Attending Unavailable ELEONORA, TONY Referring Unavailable ENEDINA AGA Attending Unavailable Allergies Allergy Classification Reported Allergen(s) Allergy Type Date of Onset Reaction(s) Facility (20 sources) Sulfamethoxazole / Trimethoprim Drug Allergy 9 [facility] [employer] Work Phone: Medications Current Medications Medication Drug Class(es) Dates Sig (Normalized) Sig (Original) 24 hr buPROPion hydrochloride 150 mg extended release oral tablet (20 sources) Aminoketone Start: 03-08-2024 End: 09-04-2024 take [...] hr Active 150 MG PO Daily October 24, 2023 11:00pm cephalexin 500 mg oral capsule (14 sources) Cephalosporin Antibacterial Start: 07-04-2024 take 1 capsule by mouth in the morning, then take 1 capsule by mouth in the evening, then take 1 capsule by mouth at bedtime cephalexin (Keflex) 500 MG capsule Take 500 mg by mouth in the morning and 500 mg in the evening and 500 mg before bedtime. 07/04/2024 Active magnesium oxide 400 mg oral tablet (3 sources) Start: 03-03-2024 End: 04-02-2024 take 1 tablet by mouth once daily magnesium oxide (Mag-Ox) 400 MG tablet Indications: Headache in , antepartum, second trimester Take 1 tablet (400 mg) by mouth Daily 30 tablet 6 03/03/2024 04/02/2024 Active methylPREDNISolone 4 mg oral tablet (2 sources) Corticosteroid Start: 10-25-2023 take 1 tablet by mouth once Methylprednisolone (Medrol (Geraldo)) 4 mg tablets,dose pack Active 0 PO per package directions October 24, 2023 11:00pm PO PER PKG DIR for 6 days polysaccharide iron complex 391 mg oral capsule (20 sources) Start: 05-19-2024 End: 12-15-2024 take 1 capsule by mouth once daily iron polysaccharides (ProFe) 391.3 (180 Fe) MG capsule Indications: Anemia, unspecified type Take 1 capsule (391.3 mg) by mouth Daily 30 capsule 6 05/19/2024 12/15/2024 Active Problems Active Problems Problem Classification Problem Date Documented Date Episodic/Chronic E Codes: Natural/environment (1 source) Overexertion from prolonged static or awkward postures, initial encounter; Translations: [OVEREXERT PROLNG STAT/AWK PST INIT] Onset: 09-26-2022 Episodic E Codes: Unspecified (1 source) Activity, walking an animal; Translations: [ACTIVITY WALKING AN ANIMAL] Onset: 09-26-2022 Episodic Female infertility (20 sources) Female infertility; Translations: [Female infertility, unspecified] Onset: 12-17-2023 12-17-2023 Chronic Hemorrhage during ; abruptio placenta; placenta previa (4 sources) Low lying placenta; Translations: [Low lying placenta NOS or without hemorrhage, unspecified trimester] 04-28-2024 Episodic Mood disorders (20 sources) Bipolar disorder, most recent episode depression; Translations: [Bipolar disorder, unspecified] Onset: 07-02-2023 07-02-2023 Chronic Other complications of (2 sources) Supervision of with other poor reproductive or obstetric history, unspecified trimester; Translations: [ with other poor obstetric history] 04-28-2024 Episodic Other complications of (2 sources) size does not accord with dates; Translations: [Uterine size-date discrepancy, third trimester] 07-08-2024 Episodic Other non-traumatic joint disorders (4 sources) Pain in right knee; Translations: [PAIN IN RIGHT KNEE] Onset: 09-25-2022 Episodic Other and delivery including normal (18 sources) Second trimester ; Translations: [Encounter for supervision of normal , unspecified, second trimester] 04-28-2024 Episodic Other screening for suspected conditions (not mental disorders or infectious disease) (4 sources) Patient encounter status; Translations: [Encounter for screening for diabetes mellitus] 04-28-2024 Episodic Residual codes; unclassified (2 sources) Gestation period, 22 weeks; Translations: [22 weeks gestation of ] 04-28-2024 Episodic Residual codes; unclassified (2 sources) Gestation period, 25 weeks; Translations: [25 weeks gestation of ] 05-24-2024 Episodic Residual codes; unclassified (2 sources) Gestation period, 28 weeks; Translations: [28 weeks gestation of ] 06-09-2024 Episodic Residual codes; unclassified (2 sources) Gestation period, 32 weeks; Translations: [32 weeks gestation of ] 07-08-2024 Episodic Residual codes; unclassified (2 sources) Gestation period, 34 weeks; Translations: [34 weeks gestation of ] 07-26-2024 Episodic Residual codes; unclassified (2 sources) Gestation period, 37 weeks; Translations: [37 weeks gestation of ] 08-11-2024 Episodic Residual codes; unclassified (2 sources) Gestation period, 38 weeks; Translations: [38 weeks gestation of ] 08-18-2024 Episodic Sprains and strains (1 source) Sprain of unspecified site of right knee, initial encounter; Translations: [SPRAIN UNS SITE RT KNEE INITIAL] Onset: 09-26-2022 Episodic Unclassified (20 sources) OB Reminders Onset: 02-06-2024 02-06-2024 Unclassified (20 sources) Patient on antidepressant monitoring plan Onset: 03-08-2024 03-08-2024 Unclassified (20 sources) Baseline PHQ-9 Onset: 03-08-2024 03-08-2024 Past or Other Problems Problem Classification Problem Date Documented Date Episodic/Chronic Immunizations and screening for infectious disease (2 sources) Exposure to sexually transmissible disorder; Translations: [Contact with and (suspected) exposure to infections with a predominantly sexual mode of transmission] 03-31-2024 Episodic Other female genital disorders (20 sources) Recurrent loss; Translations: [Recurrent loss without current ] Onset: 12-17-2023 12-17-2023 Episodic Other female genital disorders (5 sources) H/O: miscarriage; Translations: [Recurrent loss] Onset: 12-17-2023 12-17-2023 Episodic Other female genital disorders (2 sources) Vaginal discharge; Translations: [Other specified noninflammatory disorders of vagina] 03-31-2024 Episodic Results Test Name Value Interpretation Reference Range Facility Urinalysis macro (dipstick) panel (U)on 08-18-2024 Bilirubin, UA Negative Negative - 4(70) +++ mg/dL [facility] Blood, UA Negative Negative - 50 Arash/mcL [facility] Clarity, UA Clear [facility] Color, UA Yellow [facility] Glucose, UA Negative Negative - 1999(110) ++++ mg/dL [facility] Interpretation and review of laboratory results Abnormal [facility] Ketones, UA Negative Negative - 160(16) ++++ mg/dL [facility] Leukocytes, UA Trace Negative - 500+++ Petar/mcL [facility] Nitrite, UA Negative Negative - Positive [facility] pH, UA 7 5 - 9 [facility] Protein, UA Negative Negative - 2000(20) ++++ mg/dL [facility] Spec Grav, UA 1.02 1 - 1.03 [facility] Urobilinogen, UA 0.2 0.2 - 12 mg/dL [facility] BOX TESTon 08-08-2024 BOX TEST RESULT SEE SCANNED REPORT N [facility] BOX TEST SENT OUT GROUP B CULTURE NO [facility] BOX1 [facility] BOX2 08/04/24 [facility] GROUP B [facility] US OB FOLLOW UP TRANSABDOMIN AL APPROACHon 08-05-2024 US OB FOLLOW UP TRANSABDOMINAL APPROACH TITLE OF EXAM: OB Ultrasound: REASON FOR EXAM: Bleeding in third trimester. COMPARISON: None TECHNIQUE: Grayscale and M-mode Doppler imaging is performed. FINDINGS: heart rate: 131 bpm JENNY: 9.5 cm (7.6-24.8) BPD: 8.5 cm HC: 30.5 cm AC: 30.2 cm FL: 7.1 cm GA for sonogram: 34.6 wk (32.1-37.0) PAUL: 08/31/2024 Weight Estimate: Weight: 2507 gm / 5 lbs, 8 oz (3785-7997 gm) [place] Normal: 2874 gm (3140-7286 gm) [place] Wt%: 16% for 36.3 wks Limited for: Growth Presentation: Cephalic Lie: Longitudinal Amniotic Fluid: 9.5 cm Between 5th and 95 percentile Largest Fluid Pocket: 2.9 cm Heart Rate: 131 bpm IMPRESSION: Single live intrauterine gestation in cephalic position with sonographic EGA of 34.6 weeks. *This report is generated using voice recognition reporting (Ge.tte). On occasion PowerScribe erroneously drops words from the report or replaces the spoken word with similar sounding words. Please call with any questions/concerns regarding this report.* Dictated and transcribed 08/06/24/dpd This report has been electronically signed and approved by the interpreting radiologist. Normal Not Available Comment on above: Order Comment: US OB SCAN FOR GROWTH Estimated Date of Delivery: 08/31/24 Gestational Age as of 08/04/2024: 36w1d Strep B Culture (PCN Allergi c)on 08-04-2024 Strep B Culture (PCN Allergic) Strep B Only Cult No Group B Beta Streptococcus Isolated 3 Days PERFORMED BY: [facility] [address] [place] [address] PATHOLOGIST RN ACLS PRITI FAIRBANKS M.D. Normal [facility] Comment on above: Performed By: #### C LUNA(PCN) #### [facility] [address] Urinalysis macro (dipstick) panel (U)on 08-04-2024 Bilirubin, UA Negative Negative - 4(70) +++ mg/dL [facility] Blood, UA Negative Negative - 50 Arash/mcL [facility] Clarity, UA Clear [facility] Color, UA Yellow [facility] Glucose, UA Negative Negative - 1999(110) ++++ mg/dL [facility] Interpretation and review of laboratory results Normal [facility] Ketones, UA Negative Negative - 160(16) ++++ mg/dL [facility] Leukocytes, UA Negative Negative - 500+++ Petar/mcL [facility] Nitrite, UA Negative Negative - Positive [facility] pH, UA 7 5 - 9 [facility] Protein, UA Negative Negative - 1999(20) ++++ mg/dL [facility] Spec Grav, UA 1.015 1 - 1.03 [facility] Urobilinogen, UA 0.2 0.2 - 12 mg/dL [facility] Urinalysis macro (dipstick) panel (U)on 07-26-2024 Bilirubin, UA Negative Negative - 4(70) +++ mg/dL [facility] Blood, UA Negative Negative - 50 Arash/mcL [facility] Clarity, UA Clear [facility] Color, UA Yellow [facility] Glucose, UA Negative Negative - 1999(110) ++++ mg/dL [facility] Interpretation and review of laboratory results Abnormal [facility] Ketones, UA Negative Negative - 160(16) ++++ mg/dL [facility] Leukocytes, UA Trace Negative - 500+++ Petar/mcL [facility] Nitrite, UA Negative Negative - Positive [facility] pH, UA 6.5 5 - 9 [facility] Protein, UA Negative Negative - 1999(20) ++++ mg/dL [facility] Spec Grav, UA 1 1 - 1.03 [facility] Urobilinogen, UA 0.2 0.2 - 12 [facility] Urinalysis macro (dipstick) panel (U)on 07-08-2024 Bilirubin, UA Negative Negative - 4(70) +++ mg/dL [facility] Blood, UA Negative Negative - 50 Arash/mcL [facility] Clarity, UA Clear [facility] Color, UA Yellow [facility] Glucose, UA Negative Negative - 2000(110) ++++ mg/dL [facility] Interpretation and review of laboratory results Abnormal [facility] Ketones, UA Negative Negative - 160(16) ++++ mg/dL [facility] Leukocytes, UA Trace Negative - 500+++ Petar/mcL [facility] Nitrite, UA Negative Negative - Positive [facility] pH, UA 6 5 - 9 [facility] Protein, UA Negative Negative - 2000(20) ++++ mg/dL [facility] Spec Grav, UA 1.025 1 - 1.03 [facility] Urobilinogen, UA 0.2 0.2 - 12 mg/dL [facility] URINE CULTURE, ROUTINEon Bacteria identified Cx Nom (U) Urine Culture, Routine Organism: Beta hemolytic Strep group B : [facility] Bacteria identified Cx Nom (U) *ABNORMAL* [facility] Bacteria identified Cx Nom (U) Greater than 100,000 colony forming units per mL [facility] Bacteria identified Cx Nom (U) Penicillin and ampicillin are drugs of choice for [facility] Bacteria identified Cx Nom (U) treatment of beta-hemolytic streptococcal infections. [facility] Bacteria identified Cx Nom (U) Susceptibility testing of penicillins and other beta- [facility] Bacteria identified Cx Nom (U) lactam agents approved by the FDA for treatment of [facility] Bacteria identified Cx Nom (U) beta-hemolytic streptococcal infections need not be [facility] Bacteria identified Cx Nom (U) performed routinely because nonsusceptible isolates [facility] Bacteria identified Cx Nom (U) are extremely rare in any beta-hemolytic streptococcus [facility] Bacteria identified Cx Nom (U) and have not been reported for Streptococcus pyogenes [facility] Bacteria identified Cx Nom (U) (group A). (CLSI) [facility] Bacteria identified Cx Nom (U) Beta hemolytic Strep group B [facility] Bacteria identified Cx Nom (U) O:BETAGB Isolated [facility] Bacteria identified Cx Nom (U) Performed at: [facility] Bacteria identified Cx Nom (U) [address] [place] [address] [phone] [facility] Bacteria identified Cx Nom (U) Gripper Machine Operator: Wm Ahn PhD, Phone: [phone] [facility] Urinalysis macro (dipstick) panel (U)on 06-09-2024 Bilirubin, UA Negative Negative - 4(70) +++ mg/dL [facility] Blood, UA Negative Negative - 50 Arash/mcL [facility] Clarity, UA Clear [facility] Color, UA Yellow [facility] Glucose, UA Negative Negative - 1999(110) ++++ mg/dL [facility] Interpretation and review of laboratory results Abnormal [facility] Ketones, UA Negative Negative - 160(16) ++++ mg/dL [facility] Leukocytes, UA Trace Negative - 500+++ Petar/mcL [facility] Nitrite, UA Negative Negative - Positive [facility] pH, UA 6.5 5 - 9 [facility] Protein, UA Negative Negative - 1999(20) ++++ mg/dL [facility] Spec Grav, UA 1.02 1 - 1.03 [facility] Urobilinogen, UA 0.2 0.2 - 12 mg/dL [facility] Urinalysis macro (dipstick) panel (U)on 05-24-2024 Bilirubin, UA Negative Negative - 4(70) +++ mg/dL [facility] Blood, UA Negative Negative - 50 Arash/mcL [facility] Clarity, UA Clear [facility] Color, UA Yellow [facility] Glucose, UA Negative Negative - 1999(110) ++++ mg/dL [facility] Interpretation and review of laboratory results Normal [facility] Ketones, UA Negative Negative - 160(16) ++++ mg/dL [facility] Leukocytes, UA Negative Negative - 500+++ Petar/mcL [facility] Nitrite, UA Negative Negative - Positive [facility] pH, UA 5.5 5 - 9 [facility] Protein, UA Negative Negative - 1999(20) ++++ mg/dL [facility] Spec Grav, UA 1.03 1 - 1.03 [facility] Urobilinogen, UA 1.0 0.2 - 12 mg/dL [facility] ALL CBC WITH AUTO DIFFon BASOPHILS ABSOLUTE AUTO [address] [facility] Basophils/100 WBC (Bld) 0.4 % 0.2 - 2.0 % [facility] Eosinophils/100 WBC (Bld) 1.9 % 0.9 - 7.0 % [facility] Erythrocyte distribution width (RBC) [Ratio] 14.2 % 11.0 - 15.0 % [facility] Hematocrit (Bld) [Volume fraction] 31 % Low 36.0 - 48.0 % [facility] Hemoglobin (Bld) [Mass/Vol] 10.3 g/dL Low 12.0 - 16.0 g/dL [facility] IMMATURE GRANULOCYTES ABS AUTO 0.03 [facility] Immature granulocytes/100 WBC (Bld) 0.3 % 0.0 - 0.5 % [facility] Interpretation and review of laboratory results Abnormal [facility] LYMPHOCYTES ABSOLUTE AUTO 1.2 [facility] Lymphocytes/100 WBC (Bld) 13.2 % Low 20.5 - 60.0 % [facility] MCH (RBC) [Entitic mass] 27.5 pg 26.7 - 34.0 pg [facility] MCHC (RBC) [Mass/Vol] 33.2 g/dL 29.9 - 35.2 g/dL [facility] MCV (RBC) [Entitic vol] 82.9 fL 81.0 - 99.0 fL [facility] MONOCYTES ABSOLUTE AUTO 0.[address] [facility] Monocytes/100 WBC (Bld) 6.7 % 1.7 - 12.0 % [facility] NEUTROPHILS ABSOLUTE AUTO 6.9 High [facility] Neutrophils/100 WBC (Bld) 77.5 % High 43.0 - 75.0 % [facility] Platelet mean volume (Bld) [Entitic vol] 10.1 fL 9.5 - 13.5 fL [facility] TBH EO # 0.2 [facility]H PLT [address] [facility] RBC 3.74 Low [facility] WBC 8.9 [facility] AFP, SERUM, OPEN SPINA BIFID Aon 04-30-2024 AFP MOM 0.84 . [facility] AFP VALUE 60.3 ng/mL . [facility] COMMENT: Comment . [facility] Comment on above: Georgie Correia , Ph.D., [facility] Director References: Available Upon Request. Multiples Of Median Cutoffs For AFP Elevations Baird 2.5 Black 2.8 IDD 2.0 Twins 4.5 Abbreviation Definitions IDD - Insulin Dep Diabetes OSBR - Open Spina Bifida Risk For further inquiries contact [facility] at [phone]. This test was developed and its performance characteristics determined by [facility]. It has not been cleared or approved by the Food and Drug Administration. Performed at: [facility] [address], [place] [id number] Gripper Machine Operator: Lynn Can [facility], Phone: [phone] GEST. AGE ON COLLECTION DATE 22.1 . weeks [facility] GESTAT. AGE BASED ON LMP . [facility] Comment on above: Recalculations are n ot recommended when gestational dating by LMP and ultrasound are within 10 days. INSULIN DEP DIABETES No . [facility] INTERPRETATION Comment . [facility] Comment on above: Interpretation: Scre en Negative [...] Customer Services to discuss available options. The [employer] recommends amniocentesis be offered to women age 35 and older. [age]UL [age] [facility] MULTIPLE GESTATION No . [facility] OS[place] RISK [address] [place] [id number] . [facility] RACE . [facility] RESULTS Report . [facility] TEST RESULTS: Negative . [facility] WEIGHT 155 . lbs [facility] N N LMP [id number] 1 18 N 1 Y 155 N N N N N White/ [facility] IGP,APTIMA HPV,AGE GDLNon AGE GDLN ACOG TESTING Note . [facility] Comment on above: TESTS RESULT FLAG UN ITS REF RANGE LAB Clinician Provided Cytology Information Source.............Cervix No. of containers..01 ThinPrep Vial Age Algo ACOG Carmen... 30-65 01 FLAG LEGEND: L-Low Normal,H-High Normal,LL-Alert Low,HH-Alert High <-Panic Low,>-Panic High,A-Abnormal,AA-Critical Abnormal Performed at: 01 =[address] [address] Destiny Yu MD, HPV APTIMA Negative Negative [facility] Comment on above: This nucleic acid am plification test detects fourteen high- risk HPV types (16,18,31,33,35,39,45,51,52,56,58,59,66,68) without differentiation. Performed at: =[address] [id number] Gripper Machine Operator: Destiny Yu MD, Phone: [phone] Performed at: [address] [id number] Gripper Machine Operator: Destiny Yu MD, Phone: [phone] IGP, APTIMA HPV, RFX 16/18,45 Note . [facility] Comment on above: TESTS RESULT FLAG UN ITS REF RANGE LAB DIAGNOSIS: 02 NEGATIVE FOR INTRAEPITHELIAL LESION OR MALIGNANCY. Specimen adequacy: 02 Satisfactory for evaluation. Endocervical and/or squamous metaplastic cells (endocervical component) are present. Performed by: 02 Carmel Zhao, Supervisor Fertilizer (ASCP) . 02 Note: Note 02 The Pap smear is a screening test designed to aid in the detection of premalignant and malignant conditions of the uterine cervix. It is not a diagnostic procedure and should not be used as the sole means of detecting cervical cancer. Both false-positive and false-negative reports do occur. Test Methodology: Note 02 This liquid based ThinPrep(R) pap test was screened with the use of an image guided system. HPV Genotype Reflex Note 02 Criteria not met, HPV Genotype not performed. FLAG LEGEND: L-Low Normal,H-High Normal,LL-Alert Low,HH-Alert High <-Panic Low,>-Panic High,A-Abnormal,AA-Critical Abnormal Performed at: [address] [id number] Destiny Yu MD, SPATULA-ALONE CERVIX [facility] URETHRITIS/DISCHARGE PLUS VA GINITIS (HTRX)on 04-03-2024 ATOPOBIUM VAGINAE 0.000 [facility] ATOPOBIUM VAGINAE Not detected [facility] BVAB 2,3 (BACTERIAL VAGINOSIS ASSOCIATED BACTERIA 2, 3); MOBILUNCUS SPP 0.000 [facility] BVAB 2,3 (BACTERIAL VAGINOSIS ASSOCIATED BACTERIA 2, 3); MOBILUNCUS SPP Not detected [facility] ADRIANA ALBICANS, PARAPSILOSIS, TROPICALIS 0.000 [facility] ADRIANA ALBICANS, PARAPSILOSIS, TROPICALIS Not detected [facility] ADRIANA GLABRATA 0.000 [facility] ADRIANA GLABRATA Not detected [facility] ADRIANA KRUSEI 0.000 [facility] ADRIANA KRUSEI Not detected [facility] CHLAMYDIA TRACHOMATIS 0.000 [facility] CHLAMYDIA TRACHOMATIS Not detected [facility] GARDNERELLA VAGINALIS 0.000 [facility] GARDNERELLA VAGINALIS Not detected [facility] MEGASPHAERA (TYPES 1, 2) 0.000 [facility] MEGASPHAERA (TYPES 1, 2) Not detected [facility] MYCOPLASMA GENITALIUM 0.000 [facility] MYCOPLASMA GENITALIUM Not detected N [facility] NEISSERIA GONORRHOEAE 0.000 [facility] NEISSERIA GONORRHOEAE Not detected N [facility] TRICHOMONAS VAGINALIS 0.000 [facility] TRICHOMONAS VAGINALIS Not detected [facility] Urinalysis macro (dipstick) panel (U)on 03-31-2024 Bilirubin, UA Negative Negative - 4(70) +++ mg/dL [facility] Blood, UA Negative Negative - 50 Arash/mcL [facility] Clarity, UA Clear [facility] Color, UA Yellow [facility] Glucose, UA Negative Negative - 1999(110) ++++ mg/dL [facility] Interpretation and review of laboratory results Abnormal [facility] Ketones, UA Negative Negative - 160(16) ++++ mg/dL [facility] Leukocytes, UA Trace Negative - 500+++ Petar/mcL [facility] Nitrite, UA Negative Negative - Positive [facility] pH, UA 7.0 5 - 9 [facility] Protein, UA Negative Negative - 1999(20) ++++ mg/dL [facility] Spec Grav, UA 1.010 1 - 1.03 [facility] Urobilinogen, UA 1.0 0.2 - 12 mg/dL [facility] No Panel InformationOrdered By: Caitlin Art on 10-25-2023 Quick Strep (POC) [facility] XR KNEE RT 4V or >on [...] by: DAVID LANIER Date: 2022-09-25 22:04 Normal [facility] Vital Signs Date Time Vital Sign Value Performing Clinician Facility 08-18-2024 15:43-0500 Body mass index (BMI) [Ratio] 29.83 kg/m2 Tony Eleonora DO Work Phone: [facility] 08-18-2024 15:43-0500 Body weight 78.83 kg Tony Eleonora DO Work Phone: [facility] 08-18-2024 15:43-0500 Diastolic blood pressure 80 mm[Hg] Tony Eleonora DO Work Phone: [facility] 08-18-2024 15:43-0500 Systolic blood pressure 130 mm[Hg] Tony Eleonora DO Work Phone: [facility] 08-11-2024 15:21-0500 Body mass index (BMI) [Ratio] 29.15 kg/m2 Aga Mcconnell PA Work Phone: [facility] 08-11-2024 15:21-0500 Body weight 77.02 kg Aga Hyden PA Work Phone: [facility] 08-11-2024 15:21-0500 Diastolic blood pressure 74 mm[Hg] Aga Hyden PA Work Phone: [facility] 08-11-2024 15:21-0500 Systolic blood pressure 118 mm[Hg] Aga Mcconnell PA Work Phone: [facility] 08-04-2024 13:51-0500 Body mass index (BMI) [Ratio] 29.52 kg/m2 Tony Eleonora DO Work Phone: [facility] 08-04-2024 13:51-0500 Body weight 78.02 kg Tony Eleonora DO Work Phone: [facility] 08-04-2024 13:51-0500 Diastolic blood pressure 70 mm[Hg] Tony Eleonora DO Work Phone: [facility] 08-04-2024 13:51-0500 Systolic blood pressure 122 mm[Hg] Tony Eleonora DO Work Phone: [facility] 07-26-2024 13:53-0500 Body mass index (BMI) [Ratio] 28.67 kg/m2 Aga Hyden PA Work Phone: [facility] 07-26-2024 13:53-0500 Body weight 75.75 kg Aga Hyden PA Work Phone: [facility] 07-26-2024 13:53-0500 Diastolic blood pressure 70 mm[Hg] Aga Hyden PA Work Phone: [facility] 07-26-2024 13:53-0500 Systolic blood pressure 110 mm[Hg] Aga Enedina PA Work Phone: [facility] 07-08-2024 10:33-0500 Body mass index (BMI) [Ratio] 28.46 kg/m2 Aga Hyden PA Work Phone: [facility] 07-08-2024 10:33-0500 Body weight 75.21 kg Aga Enedina PA Work Phone: [facility] 07-08-2024 10:33-0500 Diastolic blood pressure 70 mm[Hg] Aga Enedina PA Work Phone: [facility] 07-08-2024 10:33-0500 Systolic blood pressure 104 mm[Hg] Aga Enedina PA Work Phone: [facility] 06-09-2024 14:36-0500 Body mass index (BMI) [Ratio] 28.05 kg/m2 Tony Eleonora DO Work Phone: [facility] 06-09-2024 14:36-0500 Body weight 74.12 kg Tony Eleonora DO Work Phone: [facility] 06-09-2024 14:36-0500 Diastolic blood pressure 70 mm[Hg] Tony Eleonora DO Work Phone: [facility] 06-09-2024 14:36-0500 Systolic blood pressure 120 mm[Hg] Tony Eleonora DO Work Phone: [facility] 05-24-2024 14:15-0400 Body mass index (BMI) [Ratio] 27.6 kg/m2 Aga Hyden PA Work Phone: [facility] 05-24-2024 14:15-0400 Body weight 72.94 kg Aga Enedina PA Work Phone: [facility] 05-24-2024 14:15-0400 Diastolic blood pressure 68 mm[Hg] Aga Enedina PA Work Phone: [facility] 05-24-2024 14:15-0400 Systolic blood pressure 110 mm[Hg] Aga Hyden PA Work Phone: [facility] 04-28-2024 13:15-0400 Body mass index (BMI) [Ratio] 27.29 kg/m2 Tony Eleonora DO Work Phone: [facility] 04-28-2024 13:15-0400 Body weight 72.12 kg Tony Eleonora DO Work Phone: [facility] 04-28-2024 13:15-0400 Diastolic blood pressure 70 mm[Hg] Tony Eleonora DO Work Phone: [facility] 04-28-2024 13:15-0400 Systolic blood pressure 110 mm[Hg] Tony Eleonora DO Work Phone: [facility] 03-31-2024 09:44-0400 Body mass index (BMI) [Ratio] 26.67 kg/m2 Aga Enedina PA Work Phone: [facility] 03-31-2024 09:44-0400 Body weight 70.49 kg Aga Hyden PA Work Phone: [facility] 03-31-2024 09:44-0400 Diastolic blood pressure 70 mm[Hg] Aga Hyden PA Work Phone: [facility] 03-31-2024 09:44-0400 Systolic blood pressure 114 mm[Hg] Aga Hyden PA Work Phone: [facility] 10-25-2023 10:40-0400 Body height 162.56 cm [facility] 10-25-2023 10:40-0400 Body mass index (BMI) [Ratio] 25.7 kg/m2 [facility] 10-25-2023 10:40-0400 Body temperature 98.2 [degF] [facility] 10-25-2023 10:40-0400 Body weight 68.03 kg [facility] 10-25-2023 10:40-0400 Heart rate 89 /min [facility] 10-25-2023 10:40-0400 Respiratory rate 16 /min [facility] 10-25-2023 10:40-0400 SaO2% (BldA) [Mass fraction] 99 % [facility] Encounters Encounter Date Encounter Type Care Provider Facility Start: 08-18-2024 End: 08-18-2024 flow sheet Tony Eleonora DO Work Phone: [facility] Comment on above: Third trimester preg yaakov; 38 weeks gestation of Start: 08-18-2024 End: 08-18-2024 ambulatory TONY ELEONORA Not Available Start: 08-11-2024 End: 08-11-2024 flow sheet Aga RAMOS Work Phone: [facility] Comment on above: Third trimester preg yaakov; 37 weeks gestation of Start: 08-11-2024 End: 08-11-2024 ambulatory AGA MCCONNELL Not Available Start: 08-11-2024 End: 08-11-2024 Bamboo flowsheet Aga RAMOS Work Phone: [facility] Start: 08-11-2024 End: 08-11-2024 Bamboo flowsheet Aga RAMOS Work Phone: [facility] Start: 08-05-2024 End: 08-05-2024 ambulatory TONY ELEONORA Not Available Start: 08-04-2024 End: 08-04-2024 Bamboo flowsheet Tony Eleonora DO Work Phone: [facility] Start: 08-04-2024 End: 08-08-2024 Bamboo flowsheet Toyn Eleonora DO Work Phone: [facility] Start: 08-04-2024 End: 08-08-2024 Clinisync Result Encounter Generic External Data Provider [facility] Department Unsolicited Start: 08-04-2024 End: 08-04-2024 Departed Referred Patrick Talley MD Work Phone: [facility] Start: 08-04-2024 End: 08-04-2024 ambulatory Patrick Talley MD Work Phone: [facility] Work Phone: Start: 08-04-2024 End: 08-04-2024 flow sheet Tony Eleonora DO Work Phone: [facility] Comment on above: Third trimester preg yaakov; Third trimester bleeding Start: 07-26-2024 End: 07-26-2024 Bamboo flowsheet Aga RAMOS Work Phone: [facility] Start: 07-26-2024 End: 07-26-2024 Bamboo flowsheet Aga Mcconnell PA Work Phone: [facility] Start: 07-26-2024 End: 07-26-2024 flow sheet Aga RAMOS Work Phone: [facility] Comment on above: Third trimester preg yaakov; 34 weeks gestation of Start: 07-26-2024 End: 07-26-2024 ambulatory AGA MCCONNELL Not Available Start: 07-08-2024 End: 07-08-2024 Bamboo flowsheet Aga Mcconnell PA Work Phone: [facility] Start: 07-08-2024 End: 07-08-2024 Bamboo flowsheet Aga RAMOS Work Phone: [facility] Start: 07-08-2024 End: 07-08-2024 flow sheet Aga RAMOS Work Phone: [facility] Comment on above: 32 weeks gestation o f ; Third trimester ; Size of fetus inconsistent with dates in third trimester Start: 07-08-2024 End: 07-08-2024 ambulatory AGA MCCONNELL Not Available Start: 07-04-2024 End: 07-06-2024 Clinisync Result Encounter Generic External Data Provider [facility] External Department Unsolicited Start: 07-04-2024 End: 07-06-2024 Clinisync Result Encounter Generic External Data Provider [facility] External Department Unsolicited Start: 06-09-2024 End: 06-09-2024 Bamboo flowsheet Tony Eleonora DO Work Phone: [facility] Start: 06-09-2024 End: 06-09-2024 Bamboo flowsheet Tony Eleonora DO Work Phone: [facility] Start: 06-09-2024 End: 06-09-2024 flow sheet Tony Eleonora DO Work Phone: [facility] Comment on above: 28 weeks gestation o f ; Third trimester Start: 06-09-2024 End: 06-09-2024 ambulatory TONY ELEONORA Not Available Start: 05-24-2024 End: 05-24-2024 Bamboo flowsheet Aga RAMOS Work Phone: [facility] Start: 05-24-2024 End: 05-24-2024 Bamboo flowsheet Aga RAMOS Work Phone: [facility] Start: 05-24-2024 End: 05-24-2024 flow sheet Aga RAMOS Work Phone: [facility] Comment on above: 25 weeks gestation o f ; Second trimester Start: 05-24-2024 End: 05-24-2024 ambulatory AGA MCCONNELL Not Available Start: 05-19-2024 End: 05-19-2024 Clinisync Result Encounter Generic External Data Provider [facility] Unsolicited Start: 05-19-2024 End: 05-19-2024 Clinisync Result Encounter Generic External Data Provider [...] ELEONORA Not Available Start: 03-31-2024 End: 03-31-2024 Bamboo flowsheet Aga RAMOS Work Phone: [facility] Start: 03-31-2024 End: 04-05-2024 Clinisync Result Encounter Generic External Data Provider [facility] External [facility] Unsolicited Start: 03-31-2024 End: 04-03-2024 External Result Encounter Aga RAMOS Work Phone: [facility] Unsolicited Start: 03-31-2024 End: 04-05-2024 External Result Encounter Aga RAMOS Work Phone: [facility] Unsolicited Start: 03-31-2024 End: 03-31-2024 Patient encounter procedure Aag RAMOS Work Phone: [facility] Work Phone: Start: 03-31-2024 End: 03-31-2024 Periodic preventive med est patient 18-39 yrs Aga RAMOS Work Phone: [facility] Comment on above: Well woman exam with routine gynecological exam; Second trimester ; Vaginal discharge; STD exposure; Screening, , for anatomic survey Start: 03-31-2024 End: 03-31-2024 ambulatory AGA MCCONNELL Not Available Start: 03-03-2024 End: 03-03-2024 ambulatory TONY ELEONORA Not Available Start: 01-28-2024 End: 01-28-2024 ambulatory TONY ELEONORA Not Available Start: 12-17-2023 End: 12-17-2023 ambulatory SHAIKH SABINA Not Available Start: 10-25-2023 End: 10-25-2023 ambulatory [facility] Work Phone: Start: 10-25-2023 End: 10-25-2023 Patient encounter procedure [facility] Work Phone: Start: 09-25-2022 End: 09-25-2022 ambulatory [facility]AB[facility]DE [facility] . Facility: Procedures Date Procedure Procedure Detail Performing Clinician Start: 08-18-2024 Urnls dip stick/tabl et rgnt non-auto w/o micrscp Tony Eleonora DO Work Phone: Start: 08-04-2024 Urnls dip stick/tabl et rgnt non-auto w/o micrscp Tony Eleonora DO Work Phone: Start: 08-04-2024 BOX TEST Tony Fazi o DO Work Phone: Start: 07-26-2024 Urnls dip stick/tabl et rgnt non-auto w/o micrscp Aga RAMOS Work Phone: Start: 07-08-2024 Urnls dip stick/tabl et rgnt non-auto w/o micrscp Aga RAMOS Work Phone: Start: 07-04-2024 Bacteria identified in Urine by Culture Generic External Data Provider Start: 06-09-2024 Urnls dip stick/tabl et rgnt non-auto w/o micrscp Tony Eleonora DO Work Phone: Start: 05-24-2024 Urnls dip stick/tabl et rgnt non-auto w/o micrscp Aga RMAOS Work Phone: Start: 05-19-2024 ALL CBC WITH AUTO DIFF Tony Eleonora DO Work Phone: Start: 04-28-2024 AFP, SERUM, OPEN SPI NA BIFIDA Tony Eleonora DO Work Phone: Start: 03-31-2024 Urnls dip stick/tabl et rgnt non-auto w/o micrscp Aga RAMOS Work Phone: Start: 03-31-2024 IGP,APTIMA HPV,AGE GDLN Aga RAMOS Work Phone: Start: 03-31-2024 Microscopic observat ion [Identifier] in Cervix by Cyto stain Tony Crews DO Work Phone: Start: 03-31-2024 URETHRITIS/DISCHARGE PLUS VAGINITIS (HTRX) Aga RAMOS Work Phone: Start: 10-25-2023 Quick Strep (POC) Plan of Treatment Date Care Activity Detail Author Start: 03-31-2027 Screening for malign ant neoplasm of cervix [facility] Start: 08-25-2024 End: 08-25-2024 Patient encounter procedure 08/25/2024 10:20 AM EST Routine [facility] [address] [place] [id number] Aga Mcconnell PA [address] [place] [address] [place] [address] [facility] Start: 08-18-2024 End: 08-18-2024 Patient encounter procedure 08/18/2024 3:00 PM EST Routine [facility] [address] [place] [address] Tony Crews, [address] [place] [address] [facility] Start: 08-11-2024 End: 08-11-2024 Patient encounter procedure 08/11/2024 2:50 PM EST Routine [facility] [address] [place] [phone] Aga Mcconnell PA [address] [place] [address] [facility] Start: 08-05-2024 End: 08-05-2024 Professional / ancillary services management 08/05/2024 3:00 PM EST Ancillary Procedure [facility] [address] [place] [address] [facility] Start: 08-04-2024 End: 08-04-2025 CULTURE, GROUP B STREP WITH SUSCEPTIBLITY CULTURE, GROUP B STREP WITH SUSCEPTIBLITY Lab Routine Third trimester Expected: 08/04/2024, Expires: 08/04/2025 [facility] Work Phone: Comment on above: Expected: 08/04/2024 , Expires: 08/04/2025 Start: 08-04-2024 Group B Streptococcu s Culture Group B Streptococcus Culture [facility] Start: 08-04-2024 End: 08-04-2025 US for US OB follow up transabdominal approach Imaging Routine Third trimester bleeding Expected: 08/04/2024, Expires: 08/04/2025 [facility] Comment on above: Expected: 08/04/2024 , Expires: 08/04/2025 Start: 08-04-2024 Following clinical pathway protocol [facility] Start: 07-26-2024 End: 07-26-2024 Patient encounter procedure [facility] Comment on above: Arrived Start: 07-12-2024 End: 07-12-2024 Professional / ancillary services management 07/12/2024 1:00 PM EST Ancillary Procedure [facility] [address] [place] [address] [facility] Start: 07-08-2024 End: 07-08-2025 US for US OB SCAN FOR GROWTH Imaging Routine Size of fetus inconsistent with dates in third trimester Expected: 07/08/2024 (Approximate), Expires: 07/08/2025 [facility] Work Phone: Comment on above: Expected: 07/08/2024 (Approximate), Expires: 07/08/2025 Start: 07-08-2024 End: 07-08-2024 Patient encounter procedure [facility] Comment on above: Arrived Start: 06-23-2024 End: 06-23-2024 Patient encounter procedure 06/23/2024 1:20 PM EST Routine [facility] [address] [place] [phone] Aga Mcconnell PA [address] [facility] [place] [address] [facility] Start: 06-09-2024 End: 06-09-2024 Patient encounter procedure 06/09/2024 2:00 PM EST Routine [facility] [address] [facility] [place] [phone] Tony Crews DO [address] [facility] [address] [place], [place] [id number] [facility] Start: 05-26-2024 End: 05-26-2024 Patient encounter procedure 05/26/2024 1:30 PM EDT Routine [facility] [address] [facility] [place] [phone] Aga Mcconnell PA [address] [facility] [place] [address] [facility] Start: 05-24-2024 End: 05-24-2024 Patient encounter procedure 05/24/2024 2:00 PM EDT Routine [facility] [address] [facility] [place] [phone] Aga Mcconnell PA [address] [facility] [place] [address] Arrived [facility] Comment on above: Arrived Start: 05-12-2024 End: 05-12-2024 Professional / ancillary services management 05/12/2024 1:00 PM EDT Ancillary Procedure [facility] [address] [facility] [place] [phone] [facility] Start: 04-28-2024 End: 04-28-2025 CBC panel - Blood by Automated count CBC Lab Routine Diabetes mellitus screening Expected: 04/28/2024 (Approximate), Expires: 04/28/2025 [facility] Work Phone: Comment on above: Expected: 04/28/2024 (Approximate), Expires: 04/28/2025 Start: 04-28-2024 End: 04-28-2025 Measurement of glucose 1 hour after glucose challenge for glucose tolerance test Glucose tolerance, 1 hour Lab Routine Diabetes mellitus screening Expected: 04/28/2024 (Approximate), Expires: 04/28/2025 [facility] Comment on above: Expected: 04/28/2024 (Approximate), Expires: 04/28/2025 Start: 04-28-2024 End: 04-28-2025 US for [facility] Comment on above: Expected: 04/28/2024 (Approximate), Expires: 04/28/2025 Start: 04-28-2024 End: 04-28-2024 Patient encounter procedure 04/28/2024 1:10 PM EDT Routine [facility] [address] [place] [phone] Tony Crews, DO [address] [facility] [place] [address] [facility] Start: 04-14-2024 End: 04-14-2024 Professional / ancillary services management [facility] Start: 03-31-2024 End: 09-28-2024 Alpha fetoprotein, maternal Alpha fetoprotein, maternal Lab Routine Second trimester Expected: 03/31/2024 (Approximate), Expires: 09/28/2024 [facility] Comment on above: Expected: 03/31/2024 (Approximate), Expires: 09/28/2024 Start: 03-31-2024 End: 03-31-2025 US for US OB ANATOMY SINGLE W US OB CERVICAL LENGTH Imaging Routine Screening, , for anatomic survey Expected: 03/31/2024 (Approximate), Expires: 03/31/2025 [facility] Comment on above: Expected: 03/31/2024 (Approximate), Expires: 03/31/2025 Start: 03-31-2024 End: 03-31-2024 Patient encounter procedure 03/31/2024 9:30 AM EDT Routine [facility] [address] [place] [address] Aga Mcconnell PA [address] [facility] [place] [address] Arrived [facility] Comment on above: Arrived Start: 03-28-2024 Influenza vaccination Influenza Vacc ine (#1) [facility] Start: 01-04-2022 Screening for malign ant neoplasm of cervix [facility] Start: 01-04-2013 Screening for malign ant neoplasm of cervix Pap Smear [facility] CHLAMYDIA TRACHOMATI S (GENITO/STI) CHLAMYDIA TRACHOMATIS (GENITO/STI) Lab Routine STD exposure Ordered: 03/31/2024 [facility] Comment on above: Ordered: 03/31/2024 Cytology Cervical or vaginal smear or scraping study Pap Smear Pathology and Cytology Routine Well woman exam with routine gynecological exam Ordered: 03/31/2024 [facility] Work Phone: Comment on above: Ordered: 03/31/2024 Human papilloma viru s DNA [Presence] in Unspecified specimen by Probe with amplification HPV DNA probe, amplified Microbiology Routine Well woman exam with routine gynecological exam Ordered: 03/31/2024 [facility] Comment on above: Ordered: 03/31/2024 Neisseria gonorrhoea e DNA [Presence] in Unspecified specimen by AUSTEN with probe detection Neisseria gonorrhea DNA probe, direct Lab Routine STD exposure Ordered: 03/31/2024 [facility] Comment on above: Ordered: 03/31/2024 SURESWAB(R) ADVANCED VAGINITIS PLUS, TMA SURESWAB(R) ADVANCED VAGINITIS PLUS, TMA Pathology and Cytology Routine Vaginal discharge Ordered: 03/31/2024 [facility] Comment on above: Ordered: 03/31/2024 Payers Date Payer Category Payer Self-pay 2020 [facility] [id number] 2020 Unknown BCBS BCBS [id number] 2020-Present [phone] [address] [place] [address] [id number] 1992 Unknown [id number] [id number]. 593 1992 Unknown [id number] [id number]. 1258 1992 Unknown [id number] 2.16.840.1.856002.3.579.2. 1258 1992 Unknown [id number] 2.16.840.1.199617.3.579.2. 1258 1992 Unknown [id number] 2.16.840.1.128956.3.579.2. 9 1992 Unknown [id number] 2.16.840.1.996651.3.579.2. 1258 1992 Unknown [id number] 2.16.840.1.998993.3.579.2. 1258 1992 Unknown [id number] 2.16.840.1.920844.3.579.2. 1258 1992 Unknown [id number] 2.16.840.1.814671.3.579.2. 9 1992 Unknown [id number] 2.16.840.1.547782.3.579.2. 1258 1992 Unknown [id number] 2.16.840.1.020346.3.579.2. 1258 1992 Unknown [id number] 2.16.840.1.862013.3.579.2. 1258 1992 Unknown [id number] 2.16.840.1.312930.3.579.2. 9 1992 Unknown [id number] [id number]. 9 1959 Unknown [id number] Social History Date Type Detail Facility Start: 10-25-2023 End: 12-17-2023 Tobacco smoking status NHIS Never smoked tobacco (finding) [facility] Start: 1990 Sex Assigned At Female F [facility] Start: 12-17-2023 Tobacco use and exposure Smokeless tobacco non-user [facility] Start: 04-28-2024 End: 08-11-2024 Alcoholic beverage intake Lifetime non-drinker (finding) [facility] Start: 12-17-2023 History of Social function [facility] Start: 12-17-2023 Tobacco use panel [facility] Start: 12-09-2023 [facility] Start: 08-04-2023 Gender identity Identifies as female gender (finding) [facility] Start: 08-04-2023 Sexual orientation Heterosexual (fin ding) [facility] Start: 08-06-2024 Sex Female (finding) [facility] NEGATED: Highlighted rowStart: NINF History of tobacco use Passive smoker [facility] Goals Date Patient Goal Desired Activity /State Personal health goal Personal health goal Clinical Notes 03-31-2024 to 08-18-2024 RICHARD Morales - 08/18/2024 3:10 PM RICHARD Campbell - 08/11/2024 2:50 PM Mariza Contreras LPN - 08/04/2024 1:30 PM RICHARD Campbell - 07/26/2024 1:40 PM RICHARD Campbell - 07/08/2024 10:20 AM EST Note Date & Type Note Facility 08-18-2024 History of Present illness Narrative Reason for Appointment: Patient ID: Madie Roy is a 34 y.o. female who presents for Routine Visit Patient presents today for Return OB appointment. MEDICATIONS Current Outpatient Medications Medication Instructions buPROPion XL (WELLBUTRIN XL) 150 mg, Oral, Daily, Do not crush, chew, or split. 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 REVIEW OF SYSTEMS Review of Systems: Review of Systems Constitutional: Negative. HENT: Negative. Eyes: Negative. Respiratory: Negative. Cardiovascular: Negative. Gastrointestinal: Negative. Genitourinary: Negative. Musculoskeletal: Negative. Skin: Negative. Neurological: Negative. All other systems reviewed and are negative. Hematological: Negative. Endocrine: Negative. Allergic/Immunologic: Negative. OBJECTIVE Objective: Physical Exam Constitutional: Appearance: Normal appearance. She is normal weight. HENT: Head: Normocephalic. Cardiovascular: Rate and Rhythm: Normal rate. Pulses: Normal pulses. Pulmonary: Effort: Pulmonary effort is normal. Breath sounds: Normal breath sounds. Abdominal: Palpations: Abdomen is soft. Musculoskeletal: General: Normal range of motion. Neurological: General: No focal deficit present. Mental Status: She is alert and oriented to person, place, and time. Psychiatric: Mood and Affect: Mood normal. Behavior: Behavior normal. Thought Content: Thought content normal. Judgment: Judgment normal. Vitals and nursing note reviewed. Vitals: Estimated body mass index is 29.83 kg/m as calculated from the following: Height as of 12/17/23: 5' 4 . Weight as of this encounter: 173 lb 12.8 oz. BP: 130/80 Patient's last menstrual period was 11/25/2023. ASSESSMENT & PLAN ICD-10-CM 1. Third trimester Z34.93 POCT urinalysis dipstick manually resulted 2. 38 weeks gestation of Z3A.38 Return OB: Patient presents today for a routine obstetrics appointment. Patient is currently 38w1d . Patient states she is doing well but has complaints of being tired due to current . Patient has verbalizes frequent movement. labor precautions was discussed/given and patient was instructed to perform kick counts three times a day. Orders Placed This Encounter Procedures POCT urinalysis dipstick manually resulted Follow Up: Patient is to return to office in 1 week for routine OB appointment. Documented by RICHARD Morales on behalf of: Tony Crews DO documented in this encounter [facility] 08-11-2024 History of Present illness Narrative Reason for Appointment: Patient ID: Madie Roy is a 34 y.o. female who presents for Routine Visit Patient presents today for Return OB appointment. MEDICATIONS Current Outpatient Medications Medication Instructions buPROPion XL (WELLBUTRIN XL) 150 mg, Oral, Daily, Do not crush, chew, or split. 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 No pertinent past medical history. Social History Tobacco Use Smoking status: Never [...] SYSTEMS Review of Systems: Review of Systems All other systems reviewed and are negative. OBJECTIVE Objective: Physical Exam Constitutional: Appearance: Normal [...] nursing note reviewed. Exam conducted with a sheet pile hammer operator present. Vitals: Estimated body mass index is 29.15 kg/m as calculated from the following: Height as of 12/17/23: 5' 4 . Weight as of this encounter: 169 lb 12.8 oz. BP: 118/74 Patient's last menstrual period was 11/25/2023. ASSESSMENT & PLAN ICD-10-CM 1. Third trimester Z34.93 2. 37 weeks gestation of Z3A.37 Patient presents today for a routine obstetrics appointment. Patient is currently 37w1d with a Estimated Date of Delivery: 08/31/24. Patient made aware that GBS was negative and id not desire to have vaginal check today. Patient to return to clinic in [address] Crews. Documented by Clarissa Starkey LPN on behalf of: RICHARD Morales documented in this encounter [facility] 08-04-2024 History of Present illness Narrative Reason for Appointment: Patient ID: Madie Roy is a 34 y.o. female who presents for Routine Visit Patient presents today for Return OB appointment. MEDICATIONS Current Outpatient Medications Medication Instructions buPROPion XL (WELLBUTRIN XL) 150 mg, Oral, Daily, Do not crush, chew, or split. 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 REVIEW OF SYSTEMS Review of Systems: Review of Systems Constitutional: Negative. HENT: Negative. Eyes: Negative. Respiratory: Negative. Cardiovascular: Negative. Gastrointestinal: Negative. Genitourinary: Positive for vaginal bleeding. Musculoskeletal: Negative. Skin: Negative. Neurological: Negative. All other systems reviewed and are negative. Hematological: Negative. Endocrine: Negative. Allergic/Immunologic: Negative. OBJECTIVE Objective: Physical Exam Constitutional: Appearance: Normal appearance. She is well-developed. Genitourinary: Vulva normal. Cardiovascular: Rate and Rhythm: Normal rate and [...] nursing note reviewed. Exam conducted with a sheet pile hammer operator present. Vitals: Estimated body mass index is 29.52 kg/m as calculated from the following: Height as of 12/17/23: 5' 4 . Weight as of this encounter: 172 lb. BP: 122/70 Patient's last menstrual period was 11/25/2023. ASSESSMENT & PLAN ICD-10-CM 1. Third trimester Z34.93 POCT urinalysis dipstick manually resulted CULTURE, GROUP B STREP WITH SUSCEPTIBLITY Patient is doing well but has complaints of being tired and having maternal discomfort due to . Patient verbalized frequent movement and was instructed to perform kick counts three times per day. labor precautions were given, LARC consent was signed/declined, and GBS was obtained. Cervical check was performed and patient is 1cm dilated. Pt states she has had vaginal bleeding- ultrasound ordered all concerns discussed with pt in detail. Orders Placed This Encounter Procedures US OB follow up transabdominal approach CULTURE, GROUP B STREP WITH SUSCEPTIBLITY POCT urinalysis dipstick manually resulted Follow Up: Patient is to return to office in 1 week for routine OB appointment Documented by Madalyn Contreras LPN on behalf of: Tony Crews DO documented in this encounter [facility] 07-26-2024 History of Present illness Narrative Reason for Appointment: Patient ID: Madie Roy is a 34 y.o. female who presents for Routine Visit Patient presents today for Return OB appointment. MEDICATIONS Current Outpatient Medications Medication Instructions buPROPion XL (WELLBUTRIN XL) 150 mg, Oral, Daily, Do not crush, chew, or split. 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 REVIEW OF SYSTEMS Review of Systems: Review of Systems Constitutional: Negative. HENT: Negative. Eyes: Negative. Respiratory: Negative. Cardiovascular: Negative. Gastrointestinal: Negative. Genitourinary: Negative. Musculoskeletal: Negative. Skin: Negative. Neurological: Negative. All other systems reviewed and are negative. Hematological: Negative. Endocrine: Negative. Allergic/Immunologic: Negative. OBJECTIVE Objective: Physical Exam Constitutional: Appearance: Normal appearance. She is normal weight. HENT: Head: Normocephalic. Cardiovascular: Rate and Rhythm: Normal rate. Pulses: Normal pulses. Pulmonary: Effort: Pulmonary effort is normal. Breath sounds: Normal breath sounds. Abdominal: Palpations: Abdomen is soft. Musculoskeletal: General: Normal range of motion. Neurological: General: No focal deficit present. Mental Status: She is alert and oriented to person, place, and time. Psychiatric: Mood and Affect: Mood normal. Behavior: Behavior normal. Thought Content: Thought content normal. Judgment: Judgment normal. Vitals and nursing note reviewed. Vitals: Estimated body mass index is 28.46 kg/m as calculated from the following: Height as of 12/17/23: 5' 4 . Weight as of 07/08/24: 165 lb 12.8 oz. BP: Patient's last menstrual period was 11/25/2023. ASSESSMENT & PLAN ICD-10-CM 1. Third trimester Z34.93 2. 34 weeks gestation of Z3A.34 Return OB: Patient presents today for a routine obstetrics appointment. Patient is currently 34w6d . Patient states she is doing well but has complaints of being tired due to current . Patient has verbalizes frequent movement. labor precautions was discussed/given and patient was instructed to perform kick counts three times a day. No orders of the defined types were placed in this encounter. Follow Up: Patient is to return to office in 2 week for routine OB appointment. Documented by Deisi Martinez MA on behalf of: RICHARD Morales documented in this encounter [facility] 07-08-2024 History of Present illness Narrative Reason for Appointment: Patient ID: Madie Leung is a 34 y.o. female who presents for No chief complaint on file. Patient presents today for Return OB appointment. MEDICATIONS Current Outpatient Medications Medication Instructions buPROPion XL (WELLBUTRIN XL) 150 mg, Oral, Daily, Do not crush, chew, or split. 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 No pertinent past medical history. Social History Tobacco Use Smoking status: Never [...] Exam Constitutional: Appearance: Normal appearance. She is normal weight. HENT: Head: Normocephalic. Cardiovascular: Rate and Rhythm: Normal rate. Pulses: Normal pulses. Pulmonary: Effort: Pulmonary effort is normal. Breath sounds: Normal breath sounds. Abdominal: Palpations: Abdomen is soft. Musculoskeletal: General: Normal range of motion. Neurological: General: No focal deficit present. Mental Status: She is alert and oriented to person, place, and time. Psychiatric: Mood and Affect: Mood normal. Behavior: Behavior normal. Thought Content: Thought content normal. Judgment: Judgment normal. Vitals and nursing note reviewed. Vitals: Estimated body mass index is 28.46 kg/m as calculated from the following: Height as of 12/17/23: 5' 4 . Weight as of this encounter: 165 lb 12.8 oz. BP: 104/70 Patient's last menstrual period was 11/25/2023. ASSESSMENT & PLAN ICD-10-CM 1. 32 weeks gestation of Z3A.32 POCT urinalysis dipstick manually resulted 2. Third trimester Z34.93 POCT urinalysis dipstick manually resulted 3. Size of fetus inconsistent with dates in third trimester O26.843 US OB SCAN FOR GROWTH Return OB: Patient presents today for a routine obstetrics appointment. Patient is currently 32w2d . Patient states she is doing well but has complaints of being tired due to current . Patient has verbalizes frequent movement. labor precautions was discussed/given and patient was instructed to perform kick counts three times a day. Orders Placed This Encounter Procedures US OB SCAN FOR GROWTH POCT urinalysis dipstick manually resulted Follow Up: Patient is to return to office in 2 week for routine OB appointment. Documented by RICHARD Morales on behalf of: RICHARD Morales documented in this encounter [facility] 06-09-2024 History of Present illness Narrative Reason for Appointment: Patient ID: Madie Leung is a 34 y.o. female who presents for Routine Visit Patient presents today for Return OB appointment. MEDICATIONS Current Outpatient Medications Medication Instructions buPROPion XL (WELLBUTRIN XL) 150 mg, Oral, Daily, Do not crush, chew, or split. 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 No pertinent past medical history. Social History Tobacco Use Smoking status: Never [...] nursing note reviewed. Exam conducted with a sheet pile hammer operator present. Vitals: Estimated body mass index is 28.05 kg/m as calculated from the following: Height as of 12/17/23: 5' 4 . Weight as of this encounter: 163 lb 6.4 oz. BP: 120/70 Patient's last menstrual period was 11/25/2023. ASSESSMENT & PLAN ICD-10-CM 1. 28 weeks gestation of Z3A.28 POCT urinalysis dipstick manually resulted 2. Third trimester Z34.93 POCT urinalysis dipstick manually resulted Return OB: Patient presents today for a routine obstetrics appointment. Patient is currently 28w1d . Patient states she is doing well but has complaints of being tired due to current . Patient has verbalizes frequent movement. labor precautions was discussed/given and patient was instructed to perform kick counts three times a day. Orders Placed This Encounter Procedures POCT urinalysis dipstick manually resulted Follow Up: Patient is to return to office in 2 week for routine OB appointment. Documented by Madalyn Contreras LPN on behalf of: Tony Crews DO documented in this encounter [facility] 05-24-2024 History of Present illness Narrative Reason for Appointment: Patient ID: Madie Leung is a 34 y.o. female who presents for Routine Visit Patient presents today for Return OB appointment. MEDICATIONS Current Outpatient Medications Medication Instructions buPROPion XL (WELLBUTRIN XL) 150 mg, Oral, Daily, Do not crush, chew, or split. 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 No pertinent past medical history. Social History Tobacco Use Smoking status: Never [...] Exam Constitutional: Appearance: Normal appearance. She is normal weight. HENT: Head: Normocephalic. Cardiovascular: Rate and Rhythm: Normal rate. Pulses: Normal pulses. Pulmonary: Effort: Pulmonary effort is normal. Breath sounds: Normal breath sounds. Abdominal: Palpations: Abdomen is soft. Musculoskeletal: General: Normal range of motion. Neurological: General: No focal deficit present. Mental Status: She is alert and oriented to person, place, and time. Psychiatric: Mood and Affect: Mood normal. Behavior: Behavior normal. Thought Content: Thought content normal. Judgment: Judgment normal. Vitals and nursing note reviewed. Vitals: Estimated body mass index is 27.6 kg/m as calculated from the following: Height as of 12/17/23: 5' 4 . Weight as of this encounter: 160 lb 12.8 oz. BP: 110/68 Patient's last menstrual period was 11/25/2023. ASSESSMENT & PLAN ICD-10-CM 1. 25 weeks gestation of Z3A.25 Urine dip 2. Second trimester Z34.92 Urine dip Return OB: Patient presents today for a routine obstetrics appointment. Patient is currently 25w6d . Patient states she is doing well but has complaints of being tired due to current . Patient has verbalizes frequent movement. Orders Placed This Encounter Procedures Urine dip Follow Up: Patient is to return to office [id number] for routine OB appointment. Documented by RICHARD Morales on behalf of: RICHARD Morales documented in this encounter [facility] 04-28-2024 History of Present illness Narrative Reason for Appointment: Patient ID: Madie Leung is a 34 y.o. female who presents for Routine Visit Patient presents today for Return OB appointment. MEDICATIONS Current Outpatient Medications Medication Instructions buPROPion XL (WELLBUTRIN XL) 150 mg, Oral, Daily, Do not crush, chew, or split. 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 Exam conducted with a sheet pile hammer operator present. Vitals: Estimated body mass index is [...] Tony Crews DO documented in this encounter [facility] 03-31-2024 History of Present illness Narrative Reason for Appointment: Patient ID: Madie Leung is a 34 y.o. female who presents for Well Women Visit, Routine Visit, and STI Screening Patient presents today for Return OB appointment. MEDICATIONS Current Outpatient Medications Medication Instructions buPROPion XL (WELLBUTRIN XL) 150 mg, Oral, Daily, Do not crush, chew, or split. 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 No pertinent past medical history. Social History Tobacco Use Smoking status: Never [...] Objective: Physical Exam Constitutional: Appearance: Normal appearance. Genitourinary: Right Adnexa: not tender and no mass present. Left Adnexa: not tender and no mass present. No cervical discharge. Breasts: Breasts are soft. Right: Normal. Left: Normal. HENT: Head: Normocephalic. Nose: Nose normal. Mouth/Throat: Mouth: Mucous membranes are moist. Cardiovascular: Rate and Rhythm: Normal rate. Pulmonary: Effort: Pulmonary effort is normal. Abdominal: General: Bowel sounds are normal. Palpations: Abdomen is soft. Musculoskeletal: General: Normal range of motion. Cervical back: Normal range of motion. Neurological: General: No focal deficit present. Mental Status: She is alert. Skin: General: Skin is warm and dry. Psychiatric: Mood and Affect: Mood normal. Vitals and nursing note reviewed. Exam conducted with a sheet pile hammer operator present. Vitals: Estimated body mass index is 26.67 kg/m as calculated from the following: Height as of 12/17/23: 5' 4 . Weight as of this encounter: 155 lb 6.4 oz. BP: 114/70 Patient's last menstrual period was 11/25/2023. ASSESSMENT & PLAN ICD-10-CM 1. Well woman exam with routine gynecological exam Z01.419 Pap Smear HPV DNA probe, amplified 2. Second trimester Z34.92 POCT urinalysis dipstick manually resulted Alpha fetoprotein, maternal Alpha fetoprotein, maternal 3. Vaginal discharge N89.8 SURESWAB(R) ADVANCED VAGINITIS PLUS, TMA 4. STD exposure Z20.2 CHLAMYDIA TRACHOMATIS (GENITO/STI) Neisseria gonorrhea DNA probe, direct 5. Screening, , for anatomic survey Z36.89 US OB ANATOMY SINGLE W US OB CERVICAL LENGTH Return OB/Annual Exam: Patient presents today for an annual exam/routine obstetrics appointment. Patient is currently 18w1d . Patient is doing well and states she has no complaints. Pap/cultures was obtained without difficulty and patient was given msAFP order to have obtained. Orders Placed This Encounter Procedures HPV DNA probe, amplified US OB ANATOMY SINGLE W US OB CERVICAL LENGTH CHLAMYDIA TRACHOMATIS (GENITO/STI) Neisseria gonorrhea DNA probe, direct Alpha fetoprotein, maternal POCT urinalysis dipstick manually resulted Follow Up: Patient is to return to our office in 4 weeks for routine OB appointment Documented by Jeanine Rucker LPN on behalf of: RICHARD Morales documented in this encounter [facility] Evaluation note No assessment inform ation available [facility] Work Phone: Evaluation note Diagnosis Second trimester state, incidental 22 weeks gestation of Diabetes mellitus screening Screening for diabetes mellitus Low-lying placenta Hemorrhage from placenta previa, unspecified as to episode of care H/O intrauterine growth restriction in prior , currently [facility] Diagnosis 25 weeks gestation of Second trimester state, incidental [facility] Diagnosis 28 weeks gestation of Third trimester state, incidental [facility] Diagnosis 32 weeks gestation of Third trimester state, incidental Size of fetus inconsistent with dates in third trimester [facility] Diagnosis Well woman exam with routine gynecological exam Routine gynecological examination Second trimester state, incidental Vaginal discharge Leukorrhea, not specified as infective STD exposure Screening, , for anatomic survey Encounter for anatomic survey [facility] Diagnosis Third trimester state, incidental 34 weeks gestation of [facility] Diagnosis Third trimester state, incidental Third trimester bleeding Unspecified antepartum hemorrhage, unspecified as to episode of care [facility] Diagnosis Third trimester state, incidental 37 weeks gestation of [facility] Diagnosis Third trimester state, incidental 38 weeks gestation of documented in this encounter [facility] Summary Purpose Family History No Family History Records Found Relationship Condition Age at Onset Recorded Date/T steve father Diabetes mellitus Unknown Cerebrovascular accident (CVA) Unknown Advance Directives No Advanced Directives Records Found Advance Directive Response Recorded Date/ Time Advance Directives No October 24, 024 9:52am Advance Directive Response Recorded Date/ Time Advance Directives No October 24 024 8:52am Chief Complaint and Reason for Visit Chief Complaint Sore throat, fever, congestion Chief Complaint Admit Date Unknown August 04, 2024 1: 42pm Additional Source Comments INFORMATION SOURCE (unrecogn ized section and content) DATE CREATED AUTHOR 09/27/[address] [facility] DATE CREATED AUTHOR AUTHOR'S ORGANIZ ATION 08/10/2024 [facility] DATE CREATED AUTHOR AUTHOR'S ORGANIZ ATION 08/20/2024 [facility] Care Teams (unrecognized sec tion and content) Team Status: Active Member Role Status Dates Patrick Talley MD Primary Care Provider Active Team Status: Inactive Member Role Status Dates Patrick Talley MD Primary Care Provider Active S tart: October 25, 2023 End: October 25, 2023 Caitlin Art NP-C Attending Provider Active S tart: October 25, 2023 End: October 25, 2023 [employer] Supervisor Relationship Specialty Start Date End Date Shaikh Muhammad MD [address] [place] [phone] PCP - General Internal Medicine 12/17/23 Shaikh Muhammad MD [address] [place] [phone] PCP - [facility] 01/26/24 [employer] Supervisor Relationship Specialty Start Date End Date Shaikh Muhammad MD [address] [place] [phone] PCP - General Internal Medicine 12/17/23 Shaikh Muhammad MD [address] [place] [phone] PCP - [facility] 01/26/24 Tunnel [employer] Placing Supervisor Relationship Specialty Start Date End Date Shaikh Muhammad MD [address] [place] [address] PCP - General Internal Medicine 12/17/23 Shaikh Muhammad MD [address] [place] [phone] PCP - [facility] 01/26/24 [employer]unnel [employer] Supervisor Relationship Specialty Start Date End Date Shaikh Muhammad MD [address] [place] [phone] PCP - General Internal Medicine 12/17/23 Shaikh Muhammad MD [address] [place] [phone] PCP - [facility] 01/26/24 [employer] Supervisor Relationship Specialty Start Date End Date Shaikh Muhammad MD [address] [place] [address] PCP - General Internal Medicine 12/17/23 Shaikh Muhammad MD [address] [place] [address] PCP - [facility] 01/26/24 [employer] Supervisor Relationship Specialty Start Date End Date Shaikh Muhammad MD [address] [place] [address] PCP - General Internal Medicine 12/17/23 Shaikh Muhammad MD [address] [place] [phone] PCP - [facility] 01/26/24 Tunnel [employer] Pl[employer] Supervisor Relationship Specialty Start Date End Date Shaikh Muhammad MD [address] [place] [phone] PCP - General Internal Medicine 12/17/23 Shaikh Muhammad MD [address] [place] [phone] PCP - [facility] 01/26/24 [employer] Supervisor Relationship Specialty Start Date End Date Shaikh Muhammad MD [address] [place] [phone] PCP - General Internal Medicine 12/17/23 Shaikh Muhammad MD [address] [place] [phone] P[facility] - [facility] 01/26/24 Tunnel Form Placing Supervisor Relationship Specialty Start Date End Date Shaikh Muhammad MD [address] [place] [phone] PCP - General Internal Medicine 12/17/23 Shaikh Muhammad MD [address] [place] [phone] PCP [facility] 01/26/24 Team Status: Inactive Member Role Status Dates Patrick Talley MD Primary Care Provider Active S tart: August 04, 2024 End: August 04, 2024 Tony Crews DO Attending Provider Active Start : August 04, 2024 End: August 04, 2024 Tunnel Form Placing Supervisor Relationship Specialty Start Date End Date Shaikh Muhammad MD [address] [place] [address] PCP - General Internal Medicine 12/17/23 Shaikh Muhammad MD [address] [place] [address] PCP - [facility] 01/26/24 Goals (unrecognized section and content) Goals may be documented in a n alternate sectionGoals may be documented in an alternate section Reason for Visit (unrecogniz ed section and content) Reason Comments Routine Visit Reason Comments Well Women Visit Routine Visit STI Screening FOR RECORDS PERTAINING TO PATIENTS WHO ARE [...] BE BASED ON THE PRIMARY CLINICAL RECORDS. [employer] provides no warranty or guarantee of the accuracy or completeness of information in this document.
[2024-08-25 03:24] LABS: Bilirubin Urine NEGATIVE (NEGATIVE); Blood Urine NEGATIVE (NEGATIVE); Clarity Urine CLEAR (CLEAR); Color Urine LT. YELLOW (YELLOW); Glucose Urine UA NEGATIVE (NEGATIVE); Ketones Urine NEGATIVE (NEGATIVE); Leukocyte Esterase Urine TRACE (NEGATIVE); Nitrite Urine NEGATIVE (NEGATIVE); Protein Urine NEGATIVE (NEG/TRACE); Urobilinogen Urine 0.2 EU/dL (0.2-1.0)
[2024-08-25 03:25] LABS: Urine Microscopic Indicated YES
[2024-08-25 03:32] LABS: Bacteria Urine TRACE #/HPF (NONE SEEN); Cast Seen? NONE SEEN #/LPF (NONE SEEN); Crystals Seen? None Seen #/HPF (None Seen); Mucus Urine NONE SEEN (NONE SEEN); RBC Urine 0-2 #/HPF (0-2); Squamous Epithelial Cell Urine MODERATE #/LPF (NONE/RARE); Urine Culture Indicated NO
--- OUTSIDE RECORDS SUMMARY | 2024-08-25 08:21 | XMS_ITS | CCD ---
Author Organization [facility] Care Team Providers Care Brake Repairer Bus Name Role Phone BABATUNDE BISHOP Attending Unavailable DR PATRICK TALLEY Primary Care Unavailable GUALBERTO ., RICHARD PINK Consulting UnavailBABATUNDE Tena Admitting Unavailable DAVID LANIER Consulting Unavailable Sabina HYMAN, Primary Care Provider [phone] Shaikh Muhammad MD Unavailable Patrick Talley MD Primary Care Provider Tony Crews DO Attending Provider Patrick Talley Primary Care Unavailable Tony Crews [...] sources) Sulfamethoxazole / Trimethoprim Drug Allergy 9 [facility] [employer] [facility] [employer] Work Phone: Medications Current Medications Medication Drug [...] UA Negative Negative - 4(70) +++ mg/dL [facility] Blood, UA Negative Negative - 50 Arash/mcL [facility] Clarity, UA Clear [facility] Color, UA Yellow [facility] Glucose, UA Negative Negative - 1999(110) ++++ mg/dL [facility] Interpretation and review of laboratory results Abnormal [facility] Ketones, UA Negative Negative - 160(16) ++++ mg/dL [facility] Leukocytes, UA Trace Negative - 500+++ Petar/mcL [facility] Nitrite, UA Negative Negative - Positive [facility] pH, UA 7 5 - 9 [facility] Protein, UA Negative Negative - 2000(20) ++++ mg/dL [facility] Spec Grav, UA 1.02 1 - 1.03 [facility] Urobilinogen, UA 0.2 0.2 - 12 mg/dL [facility] BOX TESTon 08-08-2024 BOX TEST RESULT SEE SCANNED REPORT N [facility] BOX TEST SENT OUT GROUP B CULTURE NO [facility] BOX1 [facility] BOX2 08/04/24 [facility] GROUP B [facility] US OB FOLLOW UP TRANSABDOMIN AL APPROACHon [...] 2507 gm / 5 lbs, 8 oz (1000-7115 gm) [place] Normal: 2874 gm (4222-3378 gm) [place] Wt%: 16% for 36.3 wks Limited for: Growth Presentation: Cephalic Lie: Longitudinal Amniotic Fluid: 9.5 cm Between 5th and 95 percentile Largest Fluid Pocket: 2.9 cm Heart Rate: 131 bpm IMPRESSION: Single live intrauterine gestation in cephalic position with sonographic EGA of 34.6 weeks. *This report is generated using voice recognition reporting (PolicyBazaare). On occasion PowerScribe erroneously drops words from [...] Beta Streptococcus Isolated 3 Days PERFORMED BY: [facility] [address] [place] [address] PATHOLOGIST DELIVERY AIDE PRITI FAIRBANKS M.D. Normal [facility] Comment on above: Performed By: #### C LUNA(PCN) #### [facility] [address] Urinalysis macro (dipstick) panel (U)on 08-04-2024 Bilirubin, UA Negative Negative - 4(70) +++ mg/dL [facility] Healthcare Blood, UA Negative Negative - 50 Arash/mcL [facility] Clarity, UA Clear [facility] Color, UA Yellow [facility] Glucose, UA Negative Negative - 1999(110) ++++ mg/dL [facility] Interpretation and review of laboratory results Normal [facility] Healthcare Ketones, UA Negative Negative - 160(16) ++++ mg/dL [facility] Healthcare Leukocytes, UA Negative Negative - 500+++ Petar/mcL [facility] Healthcare Nitrite, UA Negative Negative - Positive [facility] Healthcare pH, UA 7 5 - 9 [facility] Protein, UA Negative Negative - 1999(20) ++++ mg/dL [facility] Healthcare Spec Grav, UA 1.015 1 - 1.03 [facility] Urobilinogen, UA 0.2 0.2 - 12 mg/dL [facility] Urinalysis macro (dipstick) panel (U)on 07-26-2024 Bilirubin, UA Negative Negative - 4(70) +++ mg/dL [facility] Blood, UA Negative Negative - 50 Arash/mcL [facility] Clarity, UA Clear [facility] Color, UA Yellow [facility] Glucose, UA Negative Negative - 1999(110) ++++ mg/dL [facility] Interpretation and review of laboratory results Abnormal [facility] Ketones, UA Negative Negative - 160(16) ++++ mg/dL [facility] Leukocytes, UA Trace Negative - 500+++ Petar/mcL [facility] Healthcare Nitrite, UA Negative Negative - Positive [facility] pH, UA 6.5 5 - 9 [facility] Healthcare Protein, UA Negative Negative - 1999(20) ++++ mg/dL [facility] Healthcare Spec Grav, UA 1 1 - 1.03 [facility] Urobilinogen, UA 0.2 0.2 - 12 mg/dL [facility] Urinalysis macro (dipstick) panel (U)on 07-08-2024 Bilirubin, UA Negative Negative - 4(70) +++ mg/dL [facility] Blood, UA Negative Negative - 50 Arash/mcL [facility] Clarity, UA Clear [facility] Color, [facility]A [facility] Glucose, UA Negative Negative - 2000(110) ++++ mg/dL [facility] Interpretation and review of laboratory results Abnormal [facility] Ketones, UA Negative Negative - 160(16) ++++ mg/dL [facility] Leukocytes, UA Trace Negative - 500+++ Petar/mcL [facility] Nitrite, UA Negative Negative - Positive [facility] pH, UA 6 5 - 9 [facility] Protein, UA Negative Negative - 2000(20) ++++ mg/dL [facility] Spec Grav, UA 1.025 1 - 1.03 [facility] Urobilinogen, UA 0.2 0.2 - 12 mg/dL [facility] URINE CULTURE, ROUTINEon Bacteria identified Cx [...] Bacteria identified Cx Nom (U) Performed at: [facility] Bacteria identified Cx Nom (U) [address] [place] [phone] [facility] Bacteria identified Cx Nom (U) [employer] Director: Wm Ahn PhD, Phone: [phone] [facility] Urinalysis macro (dipstick) panel (U)on 06-09-2024 Bilirubin, UA Negative Negative - 4(70) +++ mg/dL [facility] Blood, UA Negative Negative - 50 Arash/mcL [facility] Clarity, UA Clear [facility] Color, UA Yellow [facility] Glucose, UA Negative Negative - 1999(110) ++++ mg/dL [facility] Interpretation and review of laboratory results Abnormal [facility] Ketones, UA Negative Negative - 160(16) ++++ mg/dL [facility] Leukocytes, UA Trace Negative - 500+++ Petar/mcL [facility] Nitrite, UA Negative Negative - Positive [facility] pH, UA 6.5 5 - 9 [facility] Protein, UA Negative Negative - 1999(20) ++++ mg/dL [facility] Spec Grav, UA 1.02 1 - 1.03 [facility] Urobilinogen, UA 0.2 0.2 - 12 mg/dL [facility] Urinalysis macro (dipstick) panel (U)on 05-24-2024 Bilirubin, UA Negative Negative - 4(70) +++ mg/dL [facility] Blood, UA Negative Negative - 50 Arash/mcL [facility] Clarity, UA Clear [facility] Color, UA Yellow [facility] Glucose, UA Negative Negative - 1999(110) ++++ mg/dL [facility] Interpretation and review of laboratory results Normal [facility] Ketones, UA Negative Negative - 160(16) ++++ mg/dL [facility] Leukocytes, UA Negative Negative - 500+++ Petar/mcL [facility] Nitrite, UA Negative Negative - Positive [facility] pH, UA 5.5 5 - 9 [facility] Protein, UA Negative Negative - 1999(20) ++++ mg/dL [facility] Spec Grav, UA 1.03 1 - 1.03 [facility] Urobilinogen, UA 1.0 0.2 - 12 mg/dL [facility] ALL CBC WITH AUTO DIFFon BASOPHILS ABSOLUTE AUTO 0 N [facility] Basophils/100 WBC (Bld) 0.4 % 0.2 - 2.0 % [facility] Eosinophils/100 WBC (Bld) 1.9 % 0.9 - 7.0 % [facility] Erythrocyte distribution width (RBC) [Ratio] 14.2 % 11.0 - 15.0 % [facility] Hematocrit (Bld) [Volume fraction] 31 % Low 36.0 - 48.0 % [facility] Hemoglobin (Bld) [Mass/Vol] 10.3 g/dL Low 12.0 - 16.0 g/dL [facility] IMMATURE GRANULOCYTES ABS AUTO 0.03 [facility] Immature granulocytes/100 WBC (Bld) 0.3 % 0.0 - 0.5 % [facility] Interpretation and review of laboratory results Abnormal [facility] LYMPHOCYTES ABSOLUTE AUTO 1.2 [facility] Lymphocytes/100 WBC (Bld) 13.2 % Low 20.5 - 60.0 % [facility] MCH (RBC) [Entitic mass] 27.5 pg 26.7 - 34.0 pg [facility] MCHC (RBC) [Mass/Vol] 33.2 g/dL 29.9 - 35.2 g/dL [facility] MCV (RBC) [Entitic vol] 82.9 fL 81.0 - 99.0 fL [facility] MONOCYTES ABSOLUTE AUTO 0.6 N [facility] Monocytes/100 WBC (Bld) 6.7 % 1.7 - 12.0 % [facility] NEUTROPHILS ABSOLUTE AUTO 6.9 High [facility] Neutrophils/100 WBC (Bld) 77.5 % High 43.0 - 75.0 % [facility] Platelet mean volume (Bld) [Entitic vol] 10.1 fL 9.5 - 13.5 fL [facility] TBH EO # 0.2 [facility] TBH PLT 211 [facility] RBC 3.74 Low [facility] WBC 8.9 [facility] AFP, SERUM, OPEN SPINA BIFID Aon 04-30-2024 AFP MOM 0.84 . [facility] AFP VALUE 60.3 ng/mL . [facility] COMMENT: Comment . [facility] Comment on above: Georgie Correia , Ph.D., [facility] Director References: Available Upon Request. Multiples Of Median Cutoffs For AFP Elevations Baird 2.5 Black 2.8 IDD 2.0 Twins 4.5 Abbreviation Definitions IDD - Insulin Dep Diabetes OSBR - Open Spina Bifida Risk For further inquiries contact [facility] at [phone]. This test was developed and its performance characteristics determined by [employer]. It has not been cleared or approved by the Food and Drug Administration. Performed at: [facility] [address] [place], [place] [id number] [employer] Director: Lynn Can [facility], Phone: [phone] GEST. AGE ON COLLECTION DATE 22.1 . weeks [facility] GESTAT. AGE BASED ON LMP . [facility] Comment on above: Recalculations are n ot recommended when gestational dating by LMP and ultrasound are within 10 days. INSULIN DEP DIABETES No . [facility] INTERPRETATION Comment . [facility] Comment on above: Interpretation: Scre en [...] Customer Services to discuss available options. The [employer] recommends amniocentesis be offered to women age 35 and older. MATERNAL AGE AT PAUL 34.6 . [age] [facility] MULTIPLE GESTATION No . [facility] [place] [address] [place] [address] . [facility] RACE . [facility] RESULTS Report . [facility] TEST RESULTS: Negative . [facility] WEIGHT 155 . lbs [facility] N N LMP [id number] 1 18 N 1 Y 155 N N N N N White/ [facility] IGP,APTIMA HPV,AGE GDLNon AGE GDLN ACOG TESTING Note . [facility] Comment on above: TESTS RESULT FLAG UN ITS REF RANGE LAB Clinician Provided Cytology Information Source.............Cervix No. of containers..01 ThinPrep Vial Age Algo ACOG Carmen... 30-65 01 FLAG LEGEND: L-Low Normal,H-High Normal,LL-Alert Low,HH-Alert High <-Panic Low,>-Panic High,A-Abnormal,AA-Critical Abnormal Performed at: 01 =[address] [address] Destiny Yu MD, HPV APTIMA Negative Negative [facility] Comment on above: This nucleic acid am plification test detects fourteen high- risk HPV types (16,18,31,33,35,39,45,51,52,56,58,59,66,68) without differentiation. Performed at: =[address] [id number] [employer] Director: Destiny Yu MD, Phone: [phone] Performed at: [address] [id number] [employer] Director: Destiny Yu MD, Phone: [phone] IGP, APTIMA HPV, RFX 16/18,45 Note . [facility] Comment on above: TESTS RESULT FLAG UN ITS REF RANGE LAB DIAGNOSIS: 02 NEGATIVE FOR INTRAEPITHELIAL LESION OR MALIGNANCY. Specimen adequacy: 02 Satisfactory for evaluation. Endocervical and/or squamous metaplastic cells (endocervical component) are present. Performed by: 02 Carmel Zhao, Cryptologic Support Specialist (ASCP) . 02 Note: Note 02 The [...] <-Panic Low,>-Panic High,A-Abnormal,AA-Critical Abnormal Performed at: [address] [address] Destiny Yu MD, SPATULA-ALONE C[facility]IX [facility] [employer] [facility] URETHRITIS/DISCHARGE PLUS VA GINITIS (HTRX)on 04-03-2024 [...] [facility] MEGASPHAERA (TYPES 1, 2) 0.000 [facility] MEGASPHAERA (TYPES 1, 2) Not detected [facility] MYCOPLASMA GENITALIUM 0.000 [facility] MYCOPLASMA GENITALIUM Not detected N [facility] NEISSERIA GONORRHOEAE 0.000 [facility] NEISSERIA GONORRHOEAE Not detected N [facility] TRICHOMONAS VAGINALIS 0.000 [facility] TRICHOMONAS VAGINALIS Not detected N [facility] Urinalysis macro (dipstick) panel (U)on 03-31-2024 Bilirubin, UA Negative Negative - 4(70) +++ mg/dL [facility] Blood, UA Negative Negative - 50 Arash/mcL [facility] Clarity, UA Clear [facility] Color, UA Yellow [facility] Glucose, UA Negative Negative - 1999(110) ++++ mg/dL [facility] Interpretation and review of laboratory results Abnormal [facility] Ketones, UA Negative Negative - 160(16) ++++ mg/dL [facility] Leukocytes, UA Trace Negative - 500+++ Petar/mcL [facility] Nitrite, UA Negative Negative - Positive [facility] pH, UA 7.0 5 - 9 [facility] Protein, UA Negative Negative - 1999(20) ++++ mg/dL [facility] Spec Grav, UA 1.010 1 - 1.03 [facility] Urobilinogen, UA 1.0 0.2 - 12 mg/dL [facility] No Panel InformationOrdered By: Caitlin Art on 10-25-2023 Quick Strep (POC) [facility] XR KNEE RT 4V or >on [...] DAVID LANIER Date: 2022-09-25 22:04 Normal [facility] Vital Signs Date Time Vital Sign Value Performing Clinician Facility 08-18-2024 15:43-0500 Body mass index (BMI) [Ratio] 29.83 kg/m2 Tony Eleonora DO Work Phone: [facility] 08-18-2024 15:43-0500 Body weight 78.83 kg Tony Eleonora DO Work Phone: [facility] 08-18-2024 15:43-0500 Diastolic blood pressure 80 mm[Hg] Tony Eleonora DO Work Phone: [facility] 08-18-2024 15:43-0500 Systolic blood pressure 130 mm[Hg] Tony Eleonora DO Work Phone: [facility] 08-11-2024 15:21-0500 Body mass index (BMI) [Ratio] 29.15 kg/m2 Aga Mcconnell PA Work Phone: [facility] 08-11-2024 15:21-0500 Body weight 77.02 kg Aga Blanco PA Work Phone: [facility] 08-11-2024 15:21-0500 Diastolic blood pressure 74 mm[Hg] Aga Blanco PA Work Phone: [facility] 08-11-2024 15:21-0500 Systolic blood pressure 118 mm[Hg] Aga Mcconnell PA Work Phone: [facility] 08-04-2024 13:51-0500 Body mass index (BMI) [Ratio] 29.52 kg/m2 Tony Eleonora DO Work Phone: [facility] 08-04-2024 13:51-0500 Body weight 78.02 kg Tony Eleonora DO Work Phone: [facility] 08-04-2024 13:51-0500 Diastolic blood pressure 70 mm[Hg] Tony Eleonora DO Work Phone: [facility] 08-04-2024 13:51-0500 Systolic blood pressure 122 mm[Hg] Tony Eleonora DO Work Phone: [facility] 07-26-2024 13:53-0500 Body mass index (BMI) [Ratio] 28.67 kg/m2 Aga Blanco PA Work Phone: [facility] 07-26-2024 13:53-0500 Body weight 75.75 kg Aga Blanco PA Work Phone: [facility] 07-26-2024 13:53-0500 Diastolic blood pressure 70 mm[Hg] Aga Blanco PA Work Phone: [facility] 07-26-2024 13:53-0500 Systolic blood pressure 110 mm[Hg] Aga Enedina PA Work Phone: [facility] 07-08-2024 10:33-0500 Body mass index (BMI) [Ratio] 28.46 kg/m2 Aga Blanco PA Work Phone: [facility] 07-08-2024 10:33-0500 Body weight 75.21 kg Aga Enedina PA Work Phone: [facility] 07-08-2024 10:33-0500 Diastolic blood pressure 70 mm[Hg] Aga Enedina PA Work Phone: [facility] 07-08-2024 10:33-0500 Systolic blood pressure 104 mm[Hg] Aga Enedina PA Work Phone: [facility] 06-09-2024 14:36-0500 Body mass index (BMI) [Ratio] 28.05 kg/m2 Tony Eleonora DO Work Phone: [facility] 06-09-2024 14:36-0500 Body weight 74.12 kg Tony Eleonora DO Work Phone: [facility] 06-09-2024 14:36-0500 Diastolic blood pressure 70 mm[Hg] Tony Eleonora DO Work Phone: [facility] 06-09-2024 14:36-0500 Systolic blood pressure 120 mm[Hg] Tony Eleonora DO Work Phone: [facility] 05-24-2024 14:15-0400 Body mass index (BMI) [Ratio] 27.6 kg/m2 Aga Blanco PA Work Phone: [facility] 05-24-2024 14:15-0400 Body weight 72.94 kg Aga Enedina PA Work Phone: [facility] 05-24-2024 14:15-0400 Diastolic blood pressure 68 mm[Hg] Aga Enedina PA Work Phone: [facility] 05-24-2024 14:15-0400 Systolic blood pressure 110 mm[Hg] Aga Blanco PA Work Phone: [facility] 04-28-2024 13:15-0400 Body mass index (BMI) [Ratio] 27.29 kg/m2 Tony Eleonora DO Work Phone: [facility] 04-28-2024 13:15-0400 Body weight 72.12 kg Tony Eleonora DO Work Phone: [facility] 04-28-2024 13:15-0400 Diastolic blood pressure 70 mm[Hg] Tony Eleonora DO Work Phone: [facility] 04-28-2024 13:15-0400 Systolic blood pressure 110 mm[Hg] Tony Eleonora DO Work Phone: [facility] 03-31-2024 09:44-0400 Body mass index (BMI) [Ratio] 26.67 kg/m2 Aga Enedina PA Work Phone: [facility] 03-31-2024 09:44-0400 Body weight 70.49 kg Aga Blanco PA Work Phone: [facility] 03-31-2024 09:44-0400 Diastolic blood pressure 70 mm[Hg] Aga Blanco PA Work Phone: [facility] 03-31-2024 09:44-0400 Systolic blood pressure 114 mm[Hg] Aga Blanco PA Work Phone: [facility] 10-25-2023 10:40-0400 Body height 162.56 cm [facility] 10-25-2023 10:40-0400 Body mass index (BMI) [Ratio] 25.7 kg/m2 [facility] 10-25-2023 10:40-0400 Body temperature 98.2 [degF] [facility] 10-25-2023 10:40-0400 Body weight 68.03 kg [facility] 10-25-2023 10:40-0400 Heart rate 89 /min [facility] 10-25-2023 10:40-0400 Respiratory rate 16 /min [facility] 10-25-2023 10:40-0400 SaO2% (BldA) [Mass fraction] 99 % [facility] Encounters Encounter Date Encounter Type Care Provider Facility Start: 08-18-2024 End: 08-18-2024 flow sheet Tony Eleonora DO Work Phone: [facility] Comment on above: Third trimester preg yaakov; 38 weeks gestation of Start: 08-18-2024 End: 08-18-2024 ambulatory TONY ELEONORA Not Available Start: 08-11-2024 End: 08-11-2024 flow sheet Aga RAMOS Work Phone: [facility] Comment on above: Third trimester preg yaakov; 37 weeks gestation of Start: 08-11-2024 End: 08-11-2024 ambulatory AGA MCCONNELL Not Available Start: 08-11-2024 End: 08-11-2024 Bamboo flowsheet Aga RAMOS Work Phone: [facility] Start: 08-11-2024 End: 08-11-2024 Bamboo flowsheet Aga RAMOS Work Phone: [facility] Start: 08-05-2024 End: 08-05-2024 ambulatory TONY ELEONORA Not Available Start: 08-04-2024 End: 08-04-2024 Bamboo flowsheet Tony Eleonora DO Work Phone: [facility] Start: 08-04-2024 End: 08-08-2024 Bamboo flowsheet Tony Eleonora DO Work Phone: [facility] Start: 08-04-2024 End: 08-08-2024 [facility] Result Encounter Generic External Data Provider [facility] External Department Unsolicited Start: 08-04-2024 End: 08-04-2024 Departed Referred Patrick Talley MD Work Phone: [facility] Start: 08-04-2024 End: 08-04-2024 ambulatory Patrick Talley MD Work Phone: [facility] Work Phone: Start: 08-04-2024 End: [...] Start: 03-31-2024 End: 03-31-2024 Patient encounter procedure Aga RAMOS Work Phone: [facility] Work Phone: Start: 03-31-2024 End: 03-31-2024 [...] Not Available Start: 10-25-2023 End: 10-25-2023 ambulatory [facility] Work Phone: Start: 10-25-2023 End: 10-25-2023 Patient encounter procedure [facility] Work Phone: [...] w/o micrscp Aga RAMOS Work Phone: Start: 05-19-2024 ALL CBC WITH [...] Screening for malign ant neoplasm of cervix [facility] Start: 08-25-2024 End: 08-25-2024 Patient encounter procedure 08/25/2024 10:20 AM EST Routine [facility] [address] [place] [id number] Aga Mcconnell PA [address] [place] [address] [place] [address] [facility] Start: 08-18-2024 End: 08-18-2024 Patient encounter procedure 08/18/2024 3:00 PM EST Routine [facility] [address] [place] [phone] Tony Crews, [address] [place] [address] [facility] Start: 08-11-2024 End: 08-11-2024 Patient encounter procedure 08/11/2024 2:50 PM EST Routine [facility] [address] [place] [phone] Aga Mcconnell PA [address] [place] [address] [facility] Start: 08-05-2024 End: 08-05-2024 Professional / ancillary services management 08/05/2024 3:00 PM EST Ancillary Procedure [facility] [address] [facility] [place] [address] [facility] Start: 08-04-2024 End: [...] EST Ancillary Procedure [facility] [address] [facility] [place] [address] [facility] Start: 07-08-2024 End: [...] PM EST Routine [facility] [address] [facility] [place] [phone] Aga Mcconnell PA [address] [place] [address] [facility] Start: 06-09-2024 End: 06-09-2024 Patient encounter procedure 06/09/2024 2:00 PM EST Routine [facility] [address] [facility] [place] [phone] Tony Crews DO [address] [facility] [address] [place], [place] [id number] [facility] Start: 05-26-2024 End: 05-26-2024 Patient encounter procedure 05/26/2024 1:30 PM EDT Routine [facility] [address] [facility] [place] [phone] Aga Mcconnell PA [address] [address] [facility] Start: 05-24-2024 End: 05-24-2024 Patient encounter procedure 05/24/2024 2:00 PM EDT Routine [facility] [address] [facility] [place] [phone] Aga Mcconnell PA [address] [place] [address] Arrived [facility] Comment on above: Arrived Start: 05-12-2024 End: 05-12-2024 Professional / ancillary services management 05/12/2024 1:00 PM EDT Ancillary Procedure [facility] [address] [place] [phone] [facility] Start: 04-28-2024 End: 04-28-2025 CBC panel - Blood by Automated count CBC Lab Routine Diabetes mellitus screening Expected: 04/28/2024 (Approximate), Expires: 04/28/2025 [facility] Work Phone: Comment on above: Expected: 04/28/2024 (Approximate), Expires: 04/28/2025 Start: 04-28-2024 End: 04-28-2025 Measurement of glucose 1 hour after glucose challenge for glucose tolerance test Glucose tolerance, 1 hour Lab Routine Diabetes mellitus screening Expected: 04/28/2024 (Approximate), Expires: 04/28/2025 [facility] Comment on above: Expected: 04/28/2024 (Approximate), Expires: 04/28/2025 Start: 04-28-2024 End: 04-28-2025 US for [facility] Comment on above: Expected: 04/28/2024 (Approximate), Expires: 04/28/2025 Start: 04-28-2024 End: 04-28-2024 Patient encounter procedure 04/28/2024 1:10 PM EDT Routine [facility] [address] [place] [id number] Tony Crews, DO [address] [place] [address] [facility] Start: 04-14-2024 End: 04-14-2024 Professional / ancillary services management [facility] Start: 03-31-2024 End: 09-28-2024 Alpha fetoprotein, maternal Alpha fetoprotein, maternal Lab Routine Second trimester Expected: 03/31/2024 (Approximate), Expires: 09/28/2024 [facility] Comment on above: Expected: 03/31/2024 (Approximate), Expires: 09/28/2024 Start: 03-31-2024 End: 03-31-2025 US for US OB ANATOMY SINGLE W US OB CERVICAL LENGTH Imaging Routine Screening, , for anatomic survey Expected: 03/31/2024 (Approximate), Expires: 03/31/2025 [facility] Comment on above: Expected: 03/31/2024 (Approximate), Expires: 03/31/2025 Start: 03-31-2024 End: 03-31-2024 Patient encounter procedure 03/31/2024 9:30 AM EDT Routine [facility] [address] [address] Aga Mcconnell PA [address] [place] [place] [address] Arrived [facility] Comment on above: Arrived Start: 03-28-2024 Influenza vaccination Influenza Vacc ine (#1) [facility] Start: 01-04-2022 Screening for malign ant neoplasm of cervix [facility] Start: 01-04-2013 Screening for malign ant neoplasm of cervix Pap Smear [facility] CHLAMYDIA TRACHOMATI S (GENITO/STI) CHLAMYDIA TRACHOMATIS (GENITO/STI) Lab Routine STD exposure Ordered: 03/31/2024 [facility] Comment on above: Ordered: 03/31/2024 Cytology Cervical or vaginal smear or scraping study Pap Smear Pathology and Cytology Routine Well woman exam with routine gynecological exam Ordered: 03/31/2024 [facility] Work Phone: Comment on above: Ordered: 03/31/2024 Human papilloma viru s DNA [Presence] in Unspecified specimen by Probe with amplification HPV DNA probe, amplified Microbiology Routine Well woman exam with routine gynecological exam Ordered: 03/31/2024 [facility] Comment on above: Ordered: 03/31/2024 Neisseria gonorrhoea e DNA [Presence] in Unspecified specimen by AUSTEN with probe detection Neisseria gonorrhea DNA probe, direct Lab Routine STD exposure Ordered: 03/31/2024 [facility] Comment on above: Ordered: 03/31/2024 SURESWAB(R) ADVANCED VAGINITIS PLUS, TMA SURESWAB(R) ADVANCED VAGINITIS PLUS, TMA Pathology and Cytology Routine Vaginal discharge Ordered: 03/31/2024 [facility] Comment on above: Ordered: 03/31/2024 Payers Date Payer Category Payer Self-pay 2020 [facility] [id number] 2020 Unknown BCBS BCBS [id number] 2020-Present [phone] [address] [place] [address] [id number] 1992 Unknown [id number] 2.16.840.1.522124.3.579.2. 593 1992 Unknown [id number] 2.16.840.1.932944.3.579.2. 1258 1992 Unknown [id number] 2.16.840.1.967766.3.579.2. 1258 1992 Unknown [id number] 2.16.840.1.058731.3.579.2. 1258 1992 Unknown [id number] 2.16.840.1.486004.3.579.2. 9 1992 Unknown [id number] 2.16.840.1.663184.3.579.2. 1258 1992 Unknown [id number] 2.16.840.1.580692.3.579.2. 1258 1992 Unknown [id number] 2.16.840.1.408332.3.579.2. 1258 1992 Unknown [id number] 2.16.840.1.343617.3.579.2. 9 1992 Unknown [id number] 2.16.840.1.696317.3.579.2. 1258 1992 Unknown [id number] 2.16.840.1.402238.3.579.2. 1258 1992 Unknown [id number] 2.16.840.1.357365.3.579.2. 1258 1992 Unknown [id number] 2.16.840.1.344530.3.579.2. 9 1992 Unknown [id number] 2.16.840.1.352171.3.579.2. 9 1959 Unknown [id number] Social History Date Type Detail Facility Start: 10-25-2023 End: 12-17-2023 Tobacco smoking status NHIS Never smoked tobacco (finding) [facility] Start: 1990 Sex Assigned At Female 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 Exam conducted with a skilled nursing facility counselor present. Vitals: Estimated body mass index is [...] of: RICHARD Morales documented in this encounter [facility] 08-04-2024 History of Present illness Narrative Reason [...] nursing note reviewed. Exam conducted with a skilled nursing facility counselor present. 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 [...] of: RICHARD Morales documented in this encounter [facility] 07-08-2024 History of Present illness Narrative Reason [...] Ambulatory Problems Diagnosis Date Noted Bipolar depression ([facility]) 07/02/2023 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 Exam conducted with a skilled nursing facility counselor present. 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 Exam conducted with a skilled nursing facility counselor present. 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 Exam conducted with a skilled nursing facility counselor present. Vitals: Estimated body mass index is [...] of: RICHARD Morales documented in this encounter [facility] Evaluation note No assessment inform ation available [facility] Work Phone: Evaluation note Diagnosis Second [...] CREATED AUTHOR AUTHOR'S ORGANIZ ATION 08/10/2024 [facility] y[facility] DATE CREATED AUTHOR AUTHOR'S ORGANIZ ATION 08/20/2024 [facility] Care Teams (unrecognized sec tion and content) Team Status: Active Member Role Status Dates Patrick Talley MD Primary Care Provider Active Team Status: Inactive Member Role Status Dates Patrick Talley MD Primary Care Provider Active S tart: October 25, 2023 End: October 25, 2023 Caitlin Art NP-C Attending Provider Active S tart: October 25, 2023 End: October 25, 2023 Brake Repairer Bus Relationship Specialty Start Date End Date Shaikh Muhammad MD [address] [place] [id number] PCP - General Internal Medicine 12/17/23 Shaikh Muhammad MD [address] [place] [phone] PCP - [facility] 01/26/24 Brake Repairer Bus Relationship Specialty Start Date End Date Shaikh Muhammad MD [address] [place] [address] PCP - General Internal Medicine 12/17/23 Shaikh Muhammad MD [address] [place] [address] PCP - [facility] 01/26/24 Brake Repairer Bus Relationship Specialty Start Date End Date Shaikh Muhammad MD [address] [place] [address] PCP - General Internal Medicine 12/17/23 Shaikh Muhammad MD [address] [place] [address] PCP - [facility] 01/26/24 Brake Repairer Bus Relationship Specialty Start Date End Date Shaikh Muhammad MD [address] [place] [address] PCP - General Internal Medicine 12/17/23 Shaikh Muhammad MD [address] [place] [address] PCP - [facility] 01/26/24 Brake Repairer Bus Relationship Specialty Start Date End Date Shaikh Muhammad MD [address] [place] [address] PCP - General Internal Medicine 12/17/23 Shaikh Muhammad MD [address] [place] [address] PCP - [facility] 01/26/24 Brake Repairer Bus Relationship Specialty Start Date End Date Shaikh Muhammad MD [address] [place] [address] PCP - General Internal Medicine 12/17/23 Shaikh Muhammad MD [address] [place] [phone] PCP - [facility] 01/26/24 Brake Repairer Bus Relationship Specialty Start Date End Date Shaikh Muhammad MD [address] [place] [phone] PCP - General Internal Medicine 12/17/23 Shaikh Muhammad MD [address] [place] [phone] PCP - [facility] 01/26/24 Brake Repairer Bus Relationship Specialty Start Date End Date Shaikh Muhammad MD [address] [place] [phone] PCP - General Internal Medicine 12/17/23 Shaikh Muhammad MD [address] [place] [address] [facility] 01/26/[facility] Brake Repairer Bus Relationship Specialty Start Date End Date Shaikh Muhammad MD [address] [place] [address] PCP - General Internal Medicine 12/17/23 Shaikh Muhammad MD [address] [place] [address] [facility]24 Team Status: Inactive Member Role Status Dates Patrick Talley MD Primary Care Provider Active S tart: August 04, 2024 End: August 04, 2024 Tony Crews DO Attending Provider Active Start : August 04, 2024 End: August 04, 2024 Brake Repairer Bus Relationship Specialty Start Date End Date Shaikh Muhammad MD [address] [place] [address] PCP - General Internal Medicine 12/17/23 Shaikh Muhammad MD [address] [place] [address] [facility] 01/26/24 Goals (unrecognized section and content) [...] BE BASED ON THE PRIMARY CLINICAL RECORDS. [employer] provides no warranty or guarantee of the accuracy or completeness of information in this document.
[2024-08-25 08:48] LABS: Hematocrit 34.1 % (36.0-48.0); Hemoglobin 10.5 g/dL (12.0-16.0); Mean Corpuscular HGB Conc 30.8 g/dL (29.9-35.2); Mean Corpuscular Hemoglobin 23.4 pg (26.7-34.0); Mean Corpuscular Volume 75.9 fL (81.0-99.0); Mean Platelet Volume 11.1 fL (9.5-13.5); Platelet Count 208 10^3/uL (150-450); Red Blood Count 4.49 10^6/uL (4.20-5.40); Red Cell Distribution Width 16.2 % (11.0-15.0); White Blood Count 10.1 10^3/uL (4.0-11.0)
[2024-08-25] MEDS: 0.9 % SODIUM CHLORIDE 1,000 ML 999 ML IV (08:50)
[2024-08-25] MEDS: NALBUPHINE HCL 10 MG/ML AMPULE IV (08:50)
[2024-08-25] MEDS: 0.9 % SODIUM CHLORIDE 1,000 ML 125 ML IV (09:52)
[2024-08-25] MEDS: ROPIVACAINE HCL/PF 400 MG/200 ML PREMIX 8 MG EPIDURAL (10:10)
[2024-08-25] MEDS: OXYTOCIN/0.9 % SODIUM CHLORIDE 20 UNITS/1,000 ML PLAST..BAG 125 UNIT IV (10:47)
--- NOTE | 2024-08-25 10:57 | PM.OBPRCVD ---
Procedure Intrapartal events: None Delivery augmentation: rupture of membranes Delivery monitor: external FHT and external uterine Route of delivery: L&D Laceration Description: periurethral - 1st degree Delivery repair: Vicryl Estimated blood loss (mL): 200 Anesthesia type: Epidural Disposition: floor Delivery date: 08/25/24 Gender: female presentation: vertex Placental delivery description: Spontaneous cord description: 3 Vessels
[2024-08-26 00:10] VITALS: BP 112/64; PULSE 88; TEMP 36.8
[2024-08-26 07:26] LABS: Basophils Absolute Auto 0.1 10^3/uL (0.0-0.1); Basophils Percent Auto 0.5 % (0.2-2.0); Eosinophils Absolute Auto 0.1 10^3/uL (0.0-0.7); Eosinophils Percent Auto 1.1 % (0.9-7.0); Hematocrit 30.3 % (36.0-48.0); Hemoglobin 9.1 g/dL (12.0-16.0); Lymphocytes Absolute Auto 1.3 10^3/uL (1.2-3.8); Lymphocytes Percent Auto 12.6 % (20.5-60.0); Mean Corpuscular Hemoglobin 23.3 pg (26.7-34.0); Mean Corpuscular Volume 77.7 fL (81.0-99.0); Mean Platelet Volume 10.3 fL (9.5-13.5); Monocytes Absolute Auto 0.7 10^3/uL (0.3-0.8); Monocytes Percent Auto 6.4 % (1.7-12.0); Neutrophils Percent Auto 78.4 % (43.0-75.0); Platelet Count 226 10^3/uL (150-450); Red Cell Distribution Width 16.2 % (11.0-15.0); White Blood Count 10.2 10^3/uL (4.0-11.0)
[2024-08-26 08:24] LABS: Amphetamine Screen Urine NEGATIVE (NEGATIVE); Barbiturates Screen Urine NEGATIVE (NEGATIVE); Benzodiazepines Screen Urine NEGATIVE (NEGATIVE); Buprenorphine Screen Urine NEGATIVE (NEGATIVE); Cannabinoid Screen Urine NEGATIVE (NEGATIVE); Cocaine Screen Urine NEGATIVE (NEGATIVE); Methadone Screen Urine NEGATIVE (NEGATIVE); Methamphetamines Screen Urine NEGATIVE (NEGATIVE); Opiate Screen Urine NEGATIVE (NEGATIVE); Oxycodone Screen Urine NEGATIVE (NEGATIVE); Phencyclidine Screen Urine NEGATIVE (NEGATIVE); Tricyclic Antidepressant Urine NEGATIVE (NEGATIVE)
--- NOTE | 2024-08-26 08:38 | P.OBPN_ITS ---
OB - PN: Subj Subjective Patient comments: no complaints [place] infant status: doing well feeding status: exclusively Exam Constitutional Vital Signs, click to edit/add: Last Vital Signs Temp 98.3 F 08/26/24 00:10 Pulse 88 08/26/24 00:10 Resp 16 08/26/24 00:10 BP 112/64 08/26/24 00:10 O2 Del Method Room Air 08/26/24 00:10 Documenting provider has reviewed patient's vital signs: yes Common normals: no apparent distress, average body habitus and oriented x3 General appearance: cooperative and comfortable Orientation/consciousness: Yes awake, Yes oriented to person, Yes oriented to place and Yes oriented to time HENMT Common normals: normocephalic Eye Common normals: EOMs intact bilaterally Neck & C-Spine Common normals: full ROM and no lymphadenopathy General: normal visual inspection Lymph Lymphatic: no lymphadenopathy noted Chest Common normals: inspection of chest normal Respiratory Common normals: normal respiratory effort Effort & inspection: able to speak in complete sentences Auscultation: clear to auscultation bilaterally Cardio Common normals: regular rate and regular rhythm Rate: regular rate Rhythm: regular rhythm GI Common normals: Normal to inspection, nondistended, normoactive bowel sounds present, soft to palpation and non-tender Inspection: normal to inspection Auscultation: normoactive bowel sounds Palpation: soft Back & Pelvis Common normals: no CVA tenderness Thoracic spine/upper back: normal to inspection Pelvis: buttocks normal Extremity Common normals: normal to inspection and full ROM Neuro Common normals: oriented x3 Sensorium/orientation: awake, alert, oriented to person, oriented to place and oriented to time Psych Common normals: mental status grossly normal, thought process normal, cooperative, affect normal, speech normal, activity/motor behavior normal, denies hallucinations, denies homicidal ideation and denies suicidal ideation Attitude: calm Activity/motor behavior: appropriate eye contact Speech: normal speech Thought process: normal thought process Results Labs Labs: Short CBC 08/25/24 08/26/24 Range/Units 08:35 07:10 WBC 10.1 10.2 (4.0-11.0) 10^3/uL Hgb 10.5 L 9.1 L (12.0-16.0) g/dL Hct 34.1 L 30.3 L (36.0-48.0) % Plt Count 208 226 (150-450) 10^3/uL OB - PN: A/P Plan - Vaginal Delivery day: 1 Plan: discharge home Time Spent with Patient Time: Total time spent is greater than 50% in coordination of care (as documented) at patient's floor/unit and/or counseling patient: Total time spent with greater than 50% in coordination of care (as documented) at patient's floor/unit and/or counseling patient: less than 15 minutes
[2024-08-26] MEDS: BUPROPION HCL 150 MG XL TABLET 24H PO (08:59)
[2024-08-26] MEDS: DOCUSATE SODIUM 100 MG CAPSULE PO (08:59)
[2024-08-26 09:00] VITALS: BP 132/85; PULSE 86; TEMP 36.8
[2024-08-26 17:53] VITALS: BP 128/87; PULSE 113
[2024-08-26 17:55] VITALS: TEMP 36.6
== END 2024-08-26 18:00 | disposition home or self-care (01) | DRG 807 ==
PROVIDERS: Admitting Provider Obstetrics & Gynecology; PCP Family Medicine; Visit Provider Obstetrics & Gynecology
DX: O70.0 First degree perineal laceration during delivery (principal); Z37.0 Single live birth; Z3A.39 39 weeks gestation of pregnancy
CPT/HCPCS: 36415; 59025; 59050; 59410; 80307; 81001; 85025; 85027; 86850; 86900; 86901; J2300; J2795

== ENCOUNTER 2025-02-16 12:21 | Outpatient (OUT) | payer BC, SELFPAY ==
--- OUTSIDE RECORDS SUMMARY | 2025-02-03 13:30 | XMS_ITS | Encounter Summary ---
Author Organization [facility] Address [address] [place] [address] Care Team Providers Care Radio Electrician Name Role Phone Patrick Luque MD Primary Care Provider [phone] Encounter Details Date Type Department Care Team (Latest Contact Info) Description 02/03/2025 1:30 PM EDT Ancillary Procedure [facility] [address] [place] [address] Missed menses; Positive urine test ([facility]) Social History Tobacco Use Types Packs/Day Years Used Date Smoking Tobacco: Never Passive Smoke Exposure: Never Smokeless Tobacco: Never Alcohol Use Standard Drinks/Week Comments Never 0 (1 standard drink = 0.6 oz pur e alcohol) PHQ-2 Answer Date Recorded Patient Health Questionnaire-2 Score 0 12/17/2023 Estimated Date of Delivery Comme nts Yes 08/28/2025 Based on Ultraso und, FHR- 172 Sex and Gender Information Value Date Recorded Sex Assigned at Female 08/04/2023 12:43 PM EST Legal Sex Female 7:53 AM EDT Gender Identity Female 08/04/2023 12:43 PM EST Sexual Orientation Straight 08/04/2023 12 :43 PM EST documented as of this encounter Plan of Treatment Upcoming Encounters Date Type Department Care Team (Late st Contact Info) Description 03/09/2025 1:50 PM EDT Routine [facility] [address] [place] [address] Jose Rafael Crews, DO [address] [place] [address] documented as of this encounter Goals Goal Patient Goal Type Associated Problems Recent Progress Patient-Stated? Author Reminders Care Plan OB Reminders No Open Scheduling, Background Help patient manage antidepressant medication Care Plan Patient on antidepressant monitoring plan No Catarina Perez NP Baseline PHQ-9 Care Plan Baseline PHQ-9 No Catarina Perez NP documented as of this encounter Procedures Procedure Name Priority Date/Time Associated Diagnosis Comments US OB TRANSVAGINAL Routine 02/03/2025 1: 56 PM EDT Missed menses Positive urine test ([facility]) documented in this encounter Results * US OB transvaginal (02/03/2025 1:56 PM EDT) Anatomical Region Laterality Modality Body Ultrasound 02/03/2025 2:53 PM EDT Impressions 02/03/2025 3:10 PM EDT Findings consistent with a live intrauterine gestation, current sonographic age of 10 weeks and 4 days resulting in an estimated date of delivery of August 28, 2025. TRANSCRIBED BY: ELECTRONICALLY SIGNED BY: Ben Garcia MD Narrative 02/03/2025 3:10 PM EDT FINDINGS: A single intrauterine gestational sac is present. No subchorionic hemorrhage. A single pole is present. Normal heart rate at 172 beats per minute. Yolk sac also is seen. Current sonographic age is 10 weeks and 4 days based on the crown-rump length measurement of 3.6 cm. Based on this age, current estimated date of delivery is August 28, 2025. No pelvic fluid or adnexal mass present. Cervical length is 4.3 cm, closed. Procedure Note Ben Garcia MD - 02/03/2025 FINDINGS: A single intrauterine gestational sac is present. No subchorionichemorrhage. A single pole is present. Normal heart rate at172 beats per minute. Yolk sac also is seen. Current sonographic age is10 weeks and 4 days based on the crown-rump length measurement of 3.6 cm.Based on this age, current estimated date of delivery is August 28, 2025.No pelvic fluid or adnexal mass present. Cervical length is 4.3 cm,closed. IMPRESSION: Findings consistent with a live intrauterine gestation, currentsonographic age of 10 weeks and 4 days resulting in an estimated date ofdelivery of August 28, 2025. TRANSCRIBED BY: ELECTRONICALLY SIGNED BY: Ben Garcia MD us Jose Rafael Crews DO IM OB US PROCEDURES Final Resul t documented in this encounter Visit Diagnoses Diagnosis Missed menses Positive urine test ([facility]) documented in this encounter Additional Health Concerns Active Problems Noted Date Diagnosed Date OB Reminders 02/06/2024 Patient on antidepressant monitoring plan 2023 Baseline PHQ-9 03/08/2024 documented as of this encounter Care Teams Radio Electrician Relationship Specialty Start Date End Date Patrick Luque MD [address] [place] [address] PCP - General Family Medicine 08/25/24 documented as of this encounter
--- OUTSIDE RECORDS SUMMARY | 2025-02-03 14:00 | XMS_ITS | Encounter Summary ---
Author Organization [facility] Address [address] [facility] [place] [address] Care Team Providers Care Sheet Metal Pattern Cutter Name Role Phone Patrick Luque MD Primary Care Provider [phone] Reason for Visit * Reason Comments Amenorrhea Encounter Details Date Type Department Care Team (Late st Contact Info) Description 02/03/2025 2:00 PM EDT Initial [facility] B[facility] OB [address] [place] [place] [id number] GA: 10w4d Social History Tobacco Use Types Packs/Day Years [...] PM EST documented as of this encounter Last Filed Vital Signs Vital Sign Reading Time Taken Comments Blood Pressure 128/82 02/03/2025 2:25 PM EDT Pulse - - Temperature - - Respiratory Rate - - Oxygen Saturation - - Inhaled Oxygen Concentration - - Weight 76.7 kg (169 lb 3.2 oz) 02/03/2025 2:25 P M EDT Height - - Body Mass Index 29.04 12/17/2023 1:49 PM EDT documented in this encounter Progress Notes * Avelina Duff LPN - 02/03/2025 2:00 PM EDT Reason for Appointment: Patient ID: Madie Roy is a 35 y.o. female who presents for Amenorrhea Patient presents today for a Nurse OB Intake appointment. Patient is 10w4d with a Estimated Date ofDelivery: 08/28/25 OB History Para Term AB Living 6 4 4 1 4 SAB IAB Ectopic Multiple Live Births 1 4 # Outcome Date GA Lbr Camilo/2nd Weight Sex Type Anes PTL Lv 6 Current 5 Term 08/25/24 39w1d 6 lb 1 oz F Vag-Spont JANKI 4 SAB 2023 3 Term 09/23/14 4 lb F Vag-Spont JANKI 2 Term 07/25/13 6 lb 11 oz F Vag-Spont JANKI 1 Term 04/03/10 6 lb 9 oz M Vag-Spont JANKI Current Medications: has a current medication list which includes the following prescription(s): bupropion xl, cephalexin, and ondansetron odt. 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 No pertinent surgical history. Allergies Allergen Reactions Sulfamethoxazole-Trimethoprim Vitals: Estimated body mass index is 29.04 kg/m?? as calculated from the following: Height as of 12/17/23: 5' 4 . Weight as of this encounter: 169 lb 3.2 oz. BP: 128/82 Patient's last menstrual period was 11/16/2024. Assessment/Plan Diagnoses and all orders for this visit: Missed menses - Type and screen; Future - ABO/Rh; Future - CBC and differential - Hemoglobin A1c - RPR - Rubella antibody, IgG - Hepatitis B surface antigen - Hepatitis C antibody - HIV-1 and HIV-2 antibodies - Urine culture - POCT , urine manually resulted - POCT urinalysis dipstick manually resulted , unspecified gestational age ([facility]) - Type and screen; Future - ABO/Rh; Future - CBC and differential - Hemoglobin A1c - RPR - Rubella antibody, IgG - Hepatitis B surface antigen - Hepatitis C antibody - HIV-1 and HIV-2 antibodies - Rapid drug screen, urine; Future Encounter for supervision of normal first in first trimester ([facility]) - Rapid drug screen, urine; Future Nausea - ondansetron ODT (Zofran-ODT) 4 MG disintegrating tablet; Take 1 tablet (4 mg) by mouth every 6 (six) hours if needed for nausea or vomiting Nurse Note: OB Intake: Patient presents today for first OB visit. Patients history has been reviewed in great detail including any potential risks. Patient signed consent forms and patient desires testing in both trimesters. Patient currently has no complaints and has been advised to drink 6-8 glasses of water a day, eatno raw or undercooked meat, and stay away from [facility]. Patient has also been advised to not change litter boxes and eat 6 small meals a day. Patient has been consulted regarding the do's and don'ts ofpregnancy. Patient was given labs and all questions and concerns were answered. Carmichael was given to patient to have completed with initial labs, Zofran sent to pharmacy. Follow Up: Patient is to return in 4 weeks for routine OB appointment. Follow Up: Patient is to have labs drawn at directed and return to office for initial OB appointment with provider. Patient may call office as needed with any concerns or questions. Nurse Visit Completed by: Avelina Duff LPN documented in this encounter Plan of Treatment Upcoming Encounters Date Type Department Care Team (Late st Contact Info) Description 03/09/2025 1:50 PM EDT Routine [facility] OB [address] [place] [phone] Jose Rafael Crews, DO [address] [place] [address] Scheduled Orders Name Type Priority Associated Diagnoses Orde r Schedule Type and screen Lab Routine Missed menses , unspecified gestational age ([facility]) Expected: 02/03/2025 (Approximate), Expires: 02/03/2026 ABO/Rh Lab Routine Missed menses , unspecified gestational age ([facility]) Expected: 02/03/2025 (Approximate), Expires: 02/03/2026 CBC and differential Lab Routine Missed menses , unspecified gestational age ([facility]) Ordered: 02/03/2025 Hemoglobin A1c Lab Routine Missed menses , unspecified gestational age ([facility]) Ordered: 02/03/2025 RPR Lab Routine Missed menses , unspecified gestational age ([facility]) Ordered: 02/03/2025 Rubella antibody, IgG Lab Routine Missed menses , unspecified gestational age ([facility]) Ordered: 02/03/2025 Hepatitis B surface antigen Lab Routine Missed menses , unspecified gestational age ([facility]) Ordered: 02/03/2025 Hepatitis C antibody Lab Routine Missed menses , unspecified gestational age ([facility]) Ordered: 02/03/2025 HIV-1 and HIV-2 antibodies Lab Routine Missed menses , unspecified gestational age ([facility]) Ordered: 02/03/2025 Urine culture Microbiology Routine Missed menses Ordered: 02/03/2025 Rapid drug screen, urine Lab Routine , unspecified gestational age ([facility]) Encounter for supervision of normal first in first trimester ([facility]) Expected: 02/03/2025 (Approximate), Expires: 02/03/2026 documented as of this encounter Goals Goal [...] Procedure Name Priority Date/Time Associated Diagnosis Comments POCT , URINE Routine 02/03/2025 2:26 PM EDT Missed menses POCT URINALYSIS DIPSTICK Routine 02/03/2025 2:26 PM EDT Missed menses documented in this encounter Results * (ABNORMAL) POCT urinalysis dipstick manually resulted (02/03/2025 2:26 PM EDT) Color, UA Yellow Clarity, UA Clear Glucose, UA Negative Negative - 2000(110) ++++ mg/dL Bilirubin, UA Negative Negative - 4(70) +++ mg/dL Ketones, UA Negative Negative - 160(16) ++++ mg/dL Spec Grav, UA 1.020 1 - 1.03 Blood, UA Negative Negative - 50 Arash/mcL pH, UA 6.0 5 - 9 Protein, UA Trace Negative - 2000(20) ++++ mg/dL Urobilinogen, UA 0.2 0.2 - 12 mg/dL Leukocytes, UA Moderate Negative - 500+++ Petar/mcL Nitrite, UA Negative Negative - Positive Urine 02/03/2025 2:26 PM EDT Jose Rafael Eleonora DO POINT OF CARE TEST ENTER/EDIT OR DERABLES Final Result * (ABNORMAL) POCT , urine manually resulted (02/03/2025 2:26 PM EDT) Preg Test, Ur Positive Negative Urine 02/03/2025 2:26 PM EDT Jose Rafael Eleonora DO POINT OF CARE TEST ENTER/EDIT OR DERABLES Final Result documented in this encounter Visit Diagnoses Diagnosis Missed menses , unspecified gestational age ([facility]) Encounter for supervision of normal first in first trimester ([facility]) Nausea Nausea alone documented in this encounter Additional Health Concerns Active Problems Noted Date Diagnosed Date OB Reminders 02/06/2024 Patient on antidepressant monitoring plan 2023 Baseline PHQ-9 03/08/2024 documented as of this encounter Care Teams Sheet Metal Pattern Cutter Relationship Specialty Start Date End Date Patrick Luque MD [address] [place] [address] PCP - General Family Medicine 08/25/24 documented as of this encounter
--- OUTSIDE RECORDS SUMMARY | 2025-02-16 12:25 | XMS_ITS | Encounter Summary ---
Author Organization [facility] Address [address] [facility] [place] [address] Care Team Providers Care Cafeteria Aide Name Role Phone Shaikh YENNI Muhammad Primary Care Provider [phone] Shaikh YENNI Muhammad Unavailable [phone] Patrick Luque MD Primary Care Provider [phone] Encounter Details Date Type Department Care Team (Late st Contact Info) Description 05/12/2024 Clinisync Result Encounter [facility] External Department Unsolicited Provider, Generic External Data Social History Tobacco Use Types Packs/Day Years Used Date Smoking Tobacco: Never Passive Smoke Exposure: Never Smokeless Tobacco: Never Alcohol Use Standard Drinks/Week Comments Never 0 (1 standard drink = 0.6 oz pur e alcohol) PHQ-2 Answer Date Recorded Patient Health Questionnaire-2 Score 0 12/17/2023 Comments Yes Sex and Gender Information Value Date Recorded [...] PM EDT Routine [facility] B[facility] OB [address] [place] [address] Jose Rafael Crews, DO [address] [place] [id number] documented as of this encounter Goals Goal [...] Priority Date/Time Associated Diagnosis Comments US OB CERVICAL LENGTH 05/12/2024 2:32 PM EDT documented in this encounter Results * US OB CERVICAL LENGTH (05/12/2024 2:32 PM EDT) Anatomical Region Laterality Modality Other 05/12/2024 2:32 PM EDT Narrative 05/12/2024 2:34 [place] [address] Ultrasound Report Signed Patient: NOHELIA LEUNG MR#: [id number] : 1990 Acct:[id number] Age/Sex: 34 / F ADM Date: 05/12/24 Loc: [facility] Attending Dr: Jose Rafael Crews D.O. Ordering Physician: Jose Rafael Crews D.O. Date of Service: 05/12/24 Procedure(s): US OB cervical length Accession Number(s): [id number] cc: Jose Rafael Crews D.O.; Patrick Luque M.D. The [address] [address] Patient Name: NOHELIA LEUNG MRN: [id number] date: 1990 Sex: F Assigned Patient Location: [facility] Current Patient [facility]: [facility] Accession/Order Number: [id number] Exam Date: 05/12/2024 13:04 Report Date: 05/12/2024 14:32 At the request of: JOSE RAFAEL CREWS Procedure: US OB cervical length EXAMINATION: US OB placenta, US OB growth, US OB cervical length HISTORY: LOW LYING PLACENTA COMPARISON: No relevant comparison available. FINDINGS: Heart Rate: 134 bpm Amniotic Fluid Volume: 19.6 cm. Largest fluid pocket 5.1 cm Number: 1 Position: Cephalic presentation, longitudinal lie) Placenta: Anterior. The placental edge is 7.5 cm from the internal cervical os Cervix: Closed, 5.5 cm BIOMETRY: BPD: 5.88 cm, 24 weeks 0 days, 40%) HC: 22.37 cm, 24 weeks 3 days, 41%) AC: 19.7 cm, 24 weeks 3 days, 49%) FL: 4.39 cm, 24 weeks 3 days, 46% EFW: 690 g, 1 lb. 8 oz., 52% FL/AC: 22.27 FL/BPD: 74.66 HC/AC: 1.13 GESTATIONAL AGE: Age by EDC: 24 weeks 1 day) PAUL by EDC: 08/31/2024) Age by US: 24 weeks 2 days) PAUL by US: 08/30/2024) US/US OB cervical length IMPRESSION: Normal interval growth Closed cervix measuring 5.5 cm Placental edge is 7.5 cm from the internal cervical os Electronically authenticated by: ALLISON COX Date: 05/12/2024 14:32 Dictated By: Allison Cox M.D. Signed By: 05/12/241433 DD/ 31 TD/TT: Box Maker: Procedure Note Radiology, Radiologist, - 05/12/2024 [place] [address] Ultrasound Report Signed Patient: FABIOLA LEUNG#: [id number] : 1990Acct:[id number] Age/Sex: 34 / FADM Date: 05/12/24 Loc: [facility] Attending Dr: Jose Rafael Crews D.O. Ordering Physician: Jose Rafael Crews D.O. Date of Service: 05/12/24 Procedure(s): US OB cervical length Accession Number(s): [id number] cc: Jose Rafael Crews D.O.; Patrick Luque M.D. [address] [address] Patient Name: NOHELIA LEUNG MRN: [facility]:[id number] date: 1990 Sex: F Assigned Patient Location: [facility] Current Patient Location: [facility] Accession/Order Number: [id number] Exam Date: 05/12/2024 13:04 Report Date: 05/12/2024 14:32 At the request of: JOSE RAFAEL CREWS Procedure: US OB cervical length EXAMINATION: US OB placenta, US OB growth, US OB cervical length HISTORY: LOW LYING PLACENTA COMPARISON: No relevant comparison available. FINDINGS: Heart Rate: 134 bpm Amniotic Fluid Volume: 19.6 cm. Largest fluid pocket 5.1 cm Number: 1 Position: Cephalic presentation, longitudinal lie) Placenta: Anterior. The placental edge is 7.5 cm from the internalcervical os Cervix: Closed, 5.5 cm BIOMETRY: BPD: 5.88 cm, 24 weeks 0 days, 40%) HC: 22.37 cm, 24 weeks 3 days, 41%) AC: 19.7 cm, 24 weeks 3 days, 49%) FL: 4.39 cm, 24 weeks 3 days, 46% EFW: 690 g, 1 lb. 8 oz., 52% FL/AC: 22.27 FL/BPD: 74.66 HC/AC: 1.13 GESTATIONAL AGE: Age by EDC: 24 weeks 1 day) PAUL by EDC: 08/31/2024) Age by US: 24 weeks 2 days) PAUL by US: 08/30/2024) US/US OB cervical length IMPRESSION: Normal interval growth Closed cervix measuring 5.5 cm Placental edge is 7.5 cm from the internal cervical os Electronically authenticated by: ALLISON COX Date: 05/12/2024 14:32 Dictated By: Allison Cox M.D. Signed By:05/12/241433 DD/ 31 TD/TT: Box Maker: us Generic External Data Provider [facility] Final Result documented in this encounter Visit Diagnoses Not on filedocumented in this encounter Additional Health Concerns Active Problems Noted Date Diagnosed Date OB Reminders 02/06/2024 Patient on antidepressant monitoring plan 2023 Baseline PHQ-9 03/08/2024 documented as of this encounter Care Teams Cafeteria Aide Relationship Specialty Start Date End Date Shaikh Muhammad MD [address] [place] [address] PCP - General Internal Medicine 12/17/23 08/24/24 Shaikh Muhammad MD [address] [place] [address] PCP - [facility] 01/26/24 Patrick Luque MD [address] [place] [address] PCP - General Family Medicine 08/25/24 documented as of this encounter
--- OUTSIDE RECORDS SUMMARY | 2025-02-16 12:25 | XMS_ITS | Encounter Summary ---
Author Organization [facility] Address [address] [facility] [place] [address] Care Team Providers Care Oracle Forms Developer Name Role Phone Shaikh YENNI Muhammad Primary Care Provider [phone] Shaikh YENNI Muhammad Unavailable [phone] Patrick Luque MD Primary Care Provider [phone] Encounter Details Date Type Department Care Team (Late st Contact Info) Description 07/12/2024 Clinisync Result Encounter [facility] External Department Unsolicited [...] Routine [facility] BCP OB [address] [place] [address] Jose Rafael Crews, DO [address] [place] [address] [place] [address] [phone] (work) documented as of this encounter Goals Goal [...] Priority Date/Time Associated Diagnosis Comments US OB GROWTH 07/12/2024 1:52 PM EST documented in this encounter Results * US OB GROWTH (07/12/2024 1:52 PM EST) Anatomical Region Laterality Modality Other 07/12/2024 1:52 PM EST Narrative 07/12/2024 1:55 PM EST The [address] [address] Ultrasound Report Signed Patient: NOHELIA LEUNG MR#: [id number] : 1990 Acct:[id number] Age/Sex: 34 / F ADM Date: 07/12/24 Loc: [facility] Attending Dr: Aga Mcconnell Ordering Physician: Aga Mcconnell Date of Service: 07/12/24 Procedure(s): US OB growth Accession Number(s): [id number] cc: Aga Mcconnell; Patrick Luque M.D. The [address] [address] Patient Name: NOHELIA LEUNG MRN: [id number] date: 1990 Sex: F Assigned Patient Location: [facility] Current Patient Location: [facility] Accession/Order Number: [id number] Exam Date: 07/12/2024 13:08 Report Date: 07/12/2024 13:52 At the request of: AGA MCCONNELL Procedure: US OB growth EXAMINATION: US OB growth HISTORY: Size of fetus inconsistent with dates COMPARISON: No relevant comparison available. FINDINGS: Heart Rate: 127 bpm Amniotic Fluid Volume: 10.4 cm, largest fluid pocket 3.6 cm Number: 1 Position: Cephalic presentation, longitudinal lie BIOMETRY: BPD: 8.18 cm; 32 weeks 6 days; 43.70 % HC: 30.14 cm; 33 weeks 3 days; 27.40 % AC: 27.34 cm; 31 weeks 3 days; 13.40 % FL: 6.22 cm; 32 weeks 2 days; 22.20 % EFW: 1881.76 g; 17.60 %, 4 lbs. 2 oz. FL/AC: 22.75 FL/BPD: 76.04 HC/AC: 1.10 GESTATIONAL AGE: Age by EDC: 32 weeks 6 days PAUL by EDC: 2024-08-31 Age by US: 32 weeks 4 days PAUL by US: 2024-09-02 US/US OB growth IMPRESSION: Normal interval growth Electronically authenticated by: ALLISON COX Date: 07/12/2024 13:52 Dictated By: Allison Cox M.D. Signed By: 07/12/24 1355 DD/ 1352 TD/TT: Surgical Scrub Technician: Procedure Note Radiology, Radiologist, MD - 07/12/2024 The [place] [id number] Ultrasound Report Signed Patient: FABIOLA LEUNG#: [id number] : 1990Acct:[id number] Age/Sex: 34 / FADM Date: 07/12/24 Loc: [facility] Attending Dr: Aga Mcconnell Ordering Physician: Aga Mcconnell Date of Service: 07/12/24 Procedure(s): US OB growth Accession Number(s): [id number] cc: Aga Mcconnell; Patrick Luque M.D. The [address] [address] Patient Name: NOHELIA LEUNG MRN: [id number] date: 1990 Sex: F Assigned Patient Location: [facility] Current Patient Location: [facility] Accession/Order Number: [id number] Exam Date: 07/12/2024 13:08 Report Date: 07/12/2024 13:52 At the request of: AGA MCCONNELL Procedure: US OB growth EXAMINATION: US OB growth HISTORY: Size of fetus inconsistent with dates COMPARISON: No relevant comparison available. FINDINGS: Heart Rate: 127 bpm Amniotic Fluid Volume: 10.4 cm, largest fluid pocket 3.6 cm Number: 1 Position: Cephalic presentation, longitudinal lie BIOMETRY: BPD: 8.18 cm; 32 weeks 6 days; 43.70 % HC: 30.14 cm; 33 weeks 3 days; 27.40 % AC: 27.34 cm; 31 weeks 3 days; 13.40 % FL: 6.22 cm; 32 weeks 2 days; 22.20 % EFW: 1881.76 g; 17.60 %, 4 lbs. 2 oz. FL/AC: 22.75 FL/BPD: 76.04 HC/AC: 1.10 GESTATIONAL AGE: Age by EDC: 32 weeks 6 days PAUL by EDC: 2024-08-31 Age by US: 32 weeks 4 days PAUL by US: 2024-09-02 US/US OB growth IMPRESSION: Normal interval growth Electronically authenticated by: ALLISON COX Date: 07/12/2024 13:52 Dictated By: Allison Cox M.D. Signed By:07/12/24 1355 DD/ 1352 TD/TT: Surgical Scrub Technician: us Generic External Data Provider [facility] Final Result documented in this encounter Visit Diagnoses Not on filedocumented in this encounter Additional Health Concerns Active Problems Noted Date Diagnosed Date OB Reminders 02/06/2024 Patient on antidepressant monitoring plan 2023 Baseline PHQ-9 03/08/2024 documented as of this encounter Care Teams Oracle Forms Developer Relationship Specialty Start Date End Date Shaikh Muhammad MD [address] [place] [address] PCP - General Internal Medicine 12/17/23 08/24/24 Shaikh Muhammad MD [address] [place] [address] PCP - [place] [facility] 01/26/24 Patrick Luque MD [address] [place] [phone] PCP - General Family Medicine 08/25/24 documented as of this encounter
--- OUTSIDE RECORDS SUMMARY | 2025-02-16 12:25 | XMS_ITS | Encounter Summary ---
Author Organization [facility] Address [address] [facility] [place] [address] Care Team Providers Care Account Underwriter Name Role Phone Shaikh YENNI Muhammda Primary Care Provider [phone] Shaikh YENNI Muhammad Unavailable [phone] Patrick Luque MD Primary Care Provider [phone] Encounter Details Date Type Department Care Team (Late st Contact Info) Description 02/02/2024 Abstract [facility] BCP OB [address] [facility] [place] [address] Jose Rafael Crews, [address] [facility] [address] [address] [place], [place] [id number] Social History Tobacco Use Types Packs/Day Years [...] PM EDT Routine [facility] BCP OB [address] [place] [address] Jose Rafael Crews DO [address] [place] [address] documented as of this encounter Visit Diagnoses Not on filedocumented in this encounter Care Teams Account Underwriter Relationship Specialty Start Date End Date Shaikh Muhammad MD [address] [place] [address] PCP - General Internal Medicine 12/17/23 08/24/24 Shaikh Muhammad MD [address] [place] [address] [facility] 01/26/24 Patrick Luque MD [address] [place] [address] PCP - General Family Medicine 08/25/24 documented as of this encounter
--- OUTSIDE RECORDS SUMMARY | 2025-02-16 12:25 | XMS_ITS | Encounter Summary ---
Author Organization [facility] Address [address] [facility] [place] [address] Care Team Providers Care Java Oracle Developer Name Role Phone Shaikh YENNI Muhammad Primary Care Provider Shaikh YENNI Muhammad Unavailable [phone] Patrick Luque MD Primary Care Provider [phone] Encounter Details Date Type Department Care Team (Late st Contact Info) Description 05/03/2024 Abstract [facility] BCP OB [address] [facility] [place] [address] Jose Rafael Crews, [address] [facility] [address] [place], [place] [id number] Social History Tobacco Use Types Packs/Day Years [...] EDT Routine [facility] BCP OB [address] [place] [phone] Jose Rafael Crews DO [address] [facility] [place] [address] documented as of this encounter Goals Goal Patient Goal Type Associated Problems Recent Progress Patient-Stated? Author Reminders Care Plan OB Reminders No Open Scheduling, Background Help patient manage antidepressant medication Care Plan Patient on antidepressant monitoring plan No Catarina Perez NP Baseline PHQ-9 Care Plan Baseline PHQ-9 No Catarina Perez NP documented as of this encounter Visit Diagnoses Not on filedocumented in this encounter Additional Health Concerns Active Problems Noted Date Diagnosed Date OB Reminders 02/06/2024 Patient on antidepressant monitoring plan 2023 Baseline PHQ-9 03/08/2024 documented as of this encounter Care Teams Java Oracle Developer Relationship Specialty Start Date End Date Shaikh Muhammad MD [address] [place] [address] PCP - General Internal Medicine 12/17/23 08/24/24 Shaikh Muhammad MD [address] [place] [address] PCP - [place] [facility] 01/26/24 Patrick Luque MD [address] [place] [address] PCP - General Family Medicine 08/25/24 documented as of this encounter
--- OUTSIDE RECORDS SUMMARY | 2025-02-16 12:25 | XMS_ITS | Encounter Summary ---
Author Organization [facility] Address [address] [facility] [place] [address] Care Team Providers Care Purse Seining Hand Name Role Phone Shaikh YENNI Muhammad Primary Care Provider [phone] Shaikh YENNI Muhammad Unavailable [phone] Patrick Luque MD Primary Care Provider [phone] Encounter Details Date Type Department Care Team [...] Routine [facility] BCP OB [address] [place] [address] Tony Crews, DO [address] [place] [address] [place] [address] documented as of this encounter Goals Goal [...] Priority Date/Time Associated Diagnosis Comments US OB PLACENTA 05/12/2024 2:32 PM EDT documented in this encounter Results * US OB PLACENTA (05/12/2024 2:32 PM EDT) Anatomical Region Laterality Modality Other 05/12/2024 2:32 PM EDT Narrative 05/12/2024 2:34 [place] [address] Ultrasound Report Signed Patient: NOHELIA LEUNG MR#: [id number] : 1990 Acct:[id number] Age/Sex: 34 / F ADM Date: 05/12/24 Loc: [facility] Attending Dr: Tony Crews D.O. Ordering Physician: Tony Crews D.O. Date of Service: 05/12/24 Procedure(s): US OB placenta Accession Number(s): [id number] cc: Tony Crews D.O.; Patrick Luque M.D. The [address] [id number] Patient Name: NOHELIA LEUNG MRN: [id number] date: 1990 Sex: F Assigned Patient Location: [facility] Current Patient [facility]: [facility] Accession/Order Number: [id number] Exam Date: 05/12/2024 13:04 Report Date: 05/12/2024 14:32 At the request of: TONY CREWS Procedure: US OB placenta EXAMINATION: US OB placenta, US OB growth, [...] days) PAUL by US: 08/30/2024) US/US OB placenta IMPRESSION: Normal interval growth Closed cervix measuring 5.5 cm Placental edge is 7.5 cm from the internal cervical os Electronically authenticated by: ALLISON COX Date: 05/12/2024 14:32 Dictated By: Allison Cox M.D. Signed By: 05/12/241433 DD/ 31 TD/TT: Promotional Marketing Agent: Procedure Note Radiology, Radiologist, MD - 05/12/2024 [place] [address] Ultrasound Report Signed Patient: FABIOLA LEUNG#: [id number] : 1990Acct:[id number] Age/Sex: 34 / FADM Date: 05/12/24 Loc: [facility] Attending Dr: Tony Crews D.O. Ordering Physician: Tony Crews D.O. Date of Service: 05/12/24 Procedure(s): US OB placenta Accession Number(s): [id number] cc: Tony Crews D.O.; Patrick Luque M.D. The [place] [address] Patient Name: NOHELIA LEUNG MRN: [id number] date: 1990 Sex: F Assigned Patient Location: [facility] Current Patient Location: [facility] Accession/Order Number: [id number] Exam Date: 05/12/2024 13:04 Report Date: 05/12/2024 14:32 At the request of: TONY CREWS Procedure: US OB placenta EXAMINATION: US OB placenta, US OB growth, [...] days) PAUL by US: 08/30/2024) US/US OB placenta IMPRESSION: Normal interval growth Closed cervix measuring 5.5 cm Placental edge is 7.5 cm from the internal cervical os Electronically authenticated by: ALLISON COX Date: 05/12/2024 14:32 Dictated By: Allison Cox M.D. Signed By:05/12/24 1434 DD/ 31 TD/TT: Promotional Marketing Agent: us Generic External Data Provider [facility] Final Result documented in this encounter Visit Diagnoses Not on filedocumented in this encounter Additional Health Concerns Active Problems Noted Date Diagnosed Date OB Reminders 02/06/2024 Patient on antidepressant monitoring plan 2023 Baseline PHQ-9 03/08/2024 documented as of this encounter Care Teams Purse Seining Hand Relationship Specialty Start Date End Date Shaikh Muhammad MD [address] [place] [address] PCP - General Internal Medicine 12/17/23 08/24/24 Shaikh Muhammad MD [address] [place] [address] [facility] 01/26/24 Patrick Luque MD [address] [place] [address] PCP - General Family Medicine 08/25/24 documented as of this encounter
--- OUTSIDE RECORDS SUMMARY | 2025-02-16 12:25 | XMS_ITS | Clinical Summary ---
Author Organization [facility] Address [address] [place] [address] Care Team Providers Care Portfolio Director Name Role Phone Patrick Luque MD Primary Care Provider [phone] Allergies Active Allergy Reactions Criticality Noted Date Comments Sulfamethoxazole-Trimethoprim 2018 Medications cephalexin (Keflex) 500 MG capsule Take 500 mg by mouth in the morning and 500 mg in the evening and 500 mg before bedtime. 4 Active buPROPion XL (Wellbutrin XL) 150 MG 24 hr tabletIndications:B ipolar depression (HCC) Take 1 tablet (150 mg) by mouth Daily; Do not crush, chew, or split. 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) 02/03/2025 Travel from Last 3 Months Family History Medical History Relation Name Comments Stroke Father Breast cancer Mother Meryl Migraines Mother Meryl Relation Name Status Comments Father Mother Meryl Alive Social History Tobacco Use Types Packs/Day Years Used Date Smoking Tobacco: Never Passive Smoke Exposure: Never Smokeless Tobacco: Never Tobacco Cessation:Counseling Given: Not Answered Alcohol Use Standard Drinks/Week Comments Never 0 [...] Orientation Straight 08/04/2023 12 :43 PM EST Last Filed Vital Signs Vital Sign Reading Time Taken Comments Blood Pressure 128/82 02/03/2025 2:25 PM EDT Pulse 88 12/17/2023 1:49 PM EDT 98% O 2 Temperature 37 C (98.6 F) 12/17/2023 1:49 PM EDT Respiratory Rate - - Oxygen Saturation - - Inhaled Oxygen Concentration - - Weight 76.7 kg (169 lb 3.2 oz) 02/03/2025 2:25 P M EDT Height 162.6 cm (5' 4 ) 12/17/2023 1:49 PM EDT Body Mass Index 29.04 12/17/2023 1:49 PM EDT Plan of Treatment Upcoming Encounters Date Type Department Care Team (Late st Contact Info) Description 03/09/2025 1:50 PM EDT Routine [facility] BCP OB [address] [facility] [place] [address] Jose Rafael Crews, DO [address] [place] [address] Health Maintenance Due Date Last Done Comments HPV/Cotest 01/04/2022 Influenza Vaccine (#1) 2025 Cervical Cancer Screening 03/31/2027 Pap Smear 03/31/2027 03/31/2024 Goals Goal Patient Goal Type Associated Problems Recent Progress Patient-Stated? Author Reminders Care Plan OB Reminders No Open Scheduling, Background Help patient manage antidepressant medication Care Plan Patient on antidepressant monitoring plan No Catarina Perez, LIEN Baseline PHQ-9 Care Plan Baseline PHQ-9 No Catarina Perez NP Procedures Procedure Name Priority Date/Time Associated Diagnosis Comments POCT URINALYSIS DIPSTICK Routine 02/03/2025 2:26 PM EDT Missed menses POCT , URINE Routine 02/03/2025 2:26 PM EDT Missed menses OB TRANSVAGINAL Routine 02/03/2025 1: 56 PM EDT Missed menses Positive urine test ([facility]) PAP SMEAR Routine 03/31/2024 12:00 AM EDT from Last 3 Months or Most Recently Relevant to Health Maintenance Results * (ABNORMAL) POCT , urine manually resulted (02/03/2025 2:26 PM EDT) Preg Test, Ur Positive Negative Urine 02/03/2025 2:26 PM EDT Jose Rafael Crews DO POINT OF CARE TEST ENTER/EDIT OR DERABLES Final Result * (ABNORMAL) POCT urinalysis dipstick manually resulted [...] - Positive Urine 02/03/2025 2:26 PM EDT us Jose Rafael Eleonora DO POINT OF CARE TEST ENTER/EDIT OR DERABLES Final Result * US OB transvaginal (02/03/2025 1:56 PM [...] Garcia MD us Jose Rafael Crews DO IMG OB US PROCEDURES Final Resul t * Pap Smear (03/31/2024 12:00 AM EDT) Swab Cervical swab / Unknown us [facility] CYT[facility] ORDERABLES Final Re sult EXTERNAL LAB from Last 3 Months or Most Recently Relevant to Health Maintenance Additional Health Concerns Active Problems Noted Date Diagnosed Date OB Reminders 02/06/2024 Patient on antidepressant monitoring plan 2023 Baseline PHQ-9 03/08/2024 Insurance BC Care Teams Portfolio Director Relationship Specialty Start Date End Date Patrick Luque MD [address] [place] [address] PCP - General Family Medicine 08/25/24
--- OUTSIDE RECORDS SUMMARY | 2025-02-16 12:25 | XMS_ITS | Encounter Summary ---
Author Organization [facility] Address [address] [facility] [place] [address] Care Team Providers Care Physician Internist Name Role Phone Shaikh YENNI Muhammad Primary Care Provider Shaikh YENNI Muhammad Unavailable [phone] Patrick Luque MD Primary Care Provider [phone] Encounter Details Date Type Department Care Team (Late st Contact Info) Description 08/10/2024 Abstract [facility] BCP [facility] [address] [facility] [place] [address] Jose Rafael Crews, [address] [facility] [address] [place], [place] [address] Social History Tobacco Use Types Packs/Day Years [...] EDT Routine [facility] BCP OB [address] [place] [address] Jose Rafael Crews DO [address] [facility] [place] [address] documented as of this encounter Goals Goal [...] documented as of this encounter Care Teams Physician Internist Relationship Specialty Start Date End Date Shaikh Muhammad MD [address] [place] [phone] PCP - General Internal Medicine 12/17/23 08/24/24 Shaikh Muhammad MD [address] [place] [address] PCP - [place] [facility] 01/26/24 Patrick Luque MD [address] [place] [address] PCP - General Family Medicine 08/25/24 documented as of this encounter
--- OUTSIDE RECORDS SUMMARY | 2025-02-16 12:25 | XMS_ITS | Encounter Summary ---
Author Organization [facility] Address [address] [facility] [place] [address] Care Team Providers Care Hospital Chief Executive Officer Name Role Phone Shaikh YENNI Muhammad Primary Care Provider Shaikh YENNI Muhammad Unavailable [phone] Patrick Luque MD Primary Care Provider [phone] Encounter Details Date Type Department Care Team (Late st Contact Info) Description 03/05/2024 Abstract [facility] BCP OB [address] [facility] [place] [place] [address] Jose Rafael Crews, [address] [facility] [address] [place], [place] [id number] Social History Tobacco Use Types Packs/Day Years [...] EDT Routine [facility] BCP OB [address] [place] [address] Jose Rafael Crews DO [address] [facility] [place] [address] documented as of this encounter Goals Goal Patient Goal Type Associated Problems Recent Progress Patient-Stated? Author Reminders Care Plan OB Reminders No Open Scheduling, Background documented as of this encounter Visit Diagnoses Not on filedocumented in this encounter Additional Health Concerns Active Problems Noted Date Diagnosed Date OB Reminders 02/06/2024 documented as of this encounter Care Teams Hospital Chief Executive Officer Relationship Specialty Start Date End Date Shaikh Muhammad MD [address] [place] [address] PCP - General Internal Medicine 12/17/23 08/24/24 Shaikh Muhammad MD [address] [place] [address] PCP - [facility] 01/26/24 Patrick Luque MD [address] [place] [address] PCP - General Family Medicine 08/25/24 documented as of this encounter
--- OUTSIDE RECORDS SUMMARY | 2025-02-16 12:25 | XMS_ITS | Encounter Summary ---
Author Organization [facility] Address [address] [facility] [place] [address] Care Team Providers Care Master Of Ceremonies Name Role Phone Shaikh YENNI Muhammad Primary Care Provider [phone] Shaikh YENNI Muhammad Unavailable [phone] Patrick Luque MD Primary Care Provider [phone] Encounter Details Date Type Department Care Team (Late st Contact Info) Description 04/06/2024 Orders Only [facility] BCP OB [address] [facility] [place] [address] Jeanine Rucker LPN [address] [place] [address] Social History Tobacco Use Types Packs/Day Years [...] EDT Routine [facility] BCP OB [address] [place] [address] Jose Rafael Crews DO [address] [facility] [place] [address] documented as of this encounter Goals Goal [...] Procedure Name Priority Date/Time Associated Diagnosis Comments PAP SMEAR Routine 03/31/2024 12:00 AM EDT documented in this encounter Results * Pap Smear (03/31/2024 12:00 AM EDT) Swab Cervical swab / Unknown [facility] CYT[facility] ORDERABLES Final Re sult EXTERNAL LAB documented in this encounter Visit Diagnoses Not on filedocumented in this encounter Additional Health Concerns Active Problems Noted Date Diagnosed Date OB Reminders 02/06/2024 Patient on antidepressant monitoring plan 2023 Baseline PHQ-9 03/08/2024 documented as of this encounter Care Teams Master Of Ceremonies Relationship Specialty Start Date End Date Shaikh Muhammad MD [address] [place] [address] PCP - General Internal Medicine 12/17/23 08/24/24 Shaikh Muhammad MD [address] [place] [address] PCP - [place] [facility] 01/26/24 Patrick Luque MD [address] [place] [address] PCP - General Family Medicine 08/25/24 documented as of this encounter
--- OUTSIDE RECORDS SUMMARY | 2025-02-16 12:25 | XMS_ITS | Encounter Summary ---
Author Organization [facility] Address [address] [place] [facility] [place] [address] Care Team Providers Care Hydraulic Corrugating Machine Operator Name Role Phone Shaikh YENNI Muhammad Unavailable [phone] Patrick Luque MD Primary Care Provider [phone] Encounter Details Date Type Department Care Team (Late st Contact Info) Description 09/17/2024 Abstract [facility] BCP OB [address] [place] [address] Jose Rafael Crews [facility] [place], [place] [address] Social History Tobacco Use Types Packs/Day Years [...] BCP OB [address] [place] [address] Jose Rafael Crews, DO [address] [facility] [place] [address] documented as of this encounter Goals Goal [...] documented as of this encounter Care Teams Hydraulic Corrugating Machine Operator Relationship Specialty Start Date End Date Shaikh Muhammad MD [address] [place] [address] PCP - [place] [facility] 01/26/24 Patrick Luque MD [address] [place] [address] PCP - General Family Medicine 08/25/24 documented as of this encounter
--- OUTSIDE RECORDS SUMMARY | 2025-02-16 12:25 | XMS_ITS | Encounter Summary ---
Author Organization [facility] Address [address] [facility] [place] [address] Care Team Providers Care Zipper Setter Chainstitch Name Role Phone Shaikh YENNI Muhammad Primary Care Provider Shaikh YENNI Muhammad Unavailable [phone] Patrick Luque MD Primary Care Provider [phone] Encounter Details Date Type Department Care Team (Late st Contact Info) Description 02/02/2024 Abstract [facility] BCP OB [address] [facility] [place] [address] Jose Rafael Crews, [address] [facility] [address] [place], [place] [address] Social History Tobacco Use Types Packs/Day Years [...] PM EDT Routine [facility] BCP OB [address] [facility] [place] [address] Jose Rafael Crews DO [address] [facility] [place] [address] documented as of this encounter Visit Diagnoses Not on filedocumented in this encounter Care Teams Zipper Setter Chainstitch Relationship Specialty Start Date End Date Shaikh Muhammad MD [address] [place] [address] PCP - General Internal Medicine 12/17/23 08/24/24 Shaikh Muhammad MD [address] [place] [address] [facility] 01/26/24 Patrick Luque MD [address] [place] [address] PCP - General Family Medicine 08/25/24 documented as of this encounter
--- OUTSIDE RECORDS SUMMARY | 2025-02-16 12:25 | XMS_ITS | Encounter Summary ---
Author Organization [facility] Address [address] [facility] [[email or web address] [place] [address] Care Team Providers Care Stone Driller Name Role Phone Shaikh YENNI Muhammad Primary Care Provider [phone] Shaikh YENNI Muhammad Unavailable [phone] Patrick Luque MD Primary Care Provider [phone] Encounter Details Date Type Department Care Team (Late st Contact Info) Description 04/14/2024 Clinisync Result Encounter [facility] External Department Unsolicited [...] Routine [facility] BCP OB [address] [place] [address] Jose Rafael Crews, DO [address] [place] [address] [place] [address] [phone] (Work) documented as of this encounter Goals Goal [...] Priority Date/Time Associated Diagnosis Comments US OB ANATOMY 04/14/2024 1:22 PM EDT documented in this encounter Results * US OB ANATOMY (04/14/2024 1:22 PM EDT) Anatomical Region Laterality Modality Other 04/14/2024 1:22 PM EDT Narrative 04/14/2024 1:25 PM EDT The [address] [address] Ultrasound Report Signed Patient: NOHELIA LEUNG MR#: [id number] : 1990 Acct:[id number] Age/Sex: 34 / F ADM Date: 04/14/24 Loc: [facility] Attending Dr: Aga Mcconnell Ordering Physician: Aga Mcconnell Date of Service: 04/14/24 Procedure(s): US OB anatomy Accession Number(s): [id number] cc: Aga Mcconnell; Patrick Luque M.D. The [address] [address] Patient Name: NOHELIA LEUNG MRN: [id number] date: 1990 Sex: F Assigned Patient Location: [facility] Current Patient Location: [facility] Accession/Order Number: [id number] Exam Date: 04/14/2024 11:07 Report Date: 04/14/2024 13:22 At the request of: AGA MCCONNELL Procedure: US OB anatomy EXAMINATION: US OB anatomy, US OB cervical length HISTORY: ANATOMY COMPARISON: No relevant comparison available. TECHNIQUE: Transabdominal sonographic examination was performed for obstetrical and evaluation. FINDINGS: Number: 1 Heart Rate: 140 bpm H.B. /min Amniotic Fluid Volume: Subjectively normal position: Breech presentation, longitudinal lie Placental Location: Anterior, the placental edge is 2.7 cm from the internal os Cervix Length: 4.34 cm , closed Normal anatomy: Lateral ventricles, cerebellum, posterior fossa, nose, lips, orbits, four-chamber heart, RVOT, LVOT, diaphragm, stomach, kidneys, abdominal cord insertion, bladder, umbilical arteries, three-vessel cord, spine, extremities BIOMETRY: BPD: 4.86 cm; 20 weeks 5 days; 72.60 % HC: 17.93 cm; 20 weeks 3 days 52.80 % AC: 15.49 cm; 20 weeks 5 days; 62 % FL: 3.40 cm; 20 weeks 5 days; 61.60 % EFW:372.31 g; 73.80 %, 13 ounces FL/AC: 21.95 FL/BPD: 69.96 HC/AC: 1.16 GESTATIONAL AGE: Age by EDC: 20 weeks 1 day PAUL by EDC: 2024-08-31 Age by current US: 20 weeks 5 days PAUL by current US: 2024-08-27 US/US OB anatomy IMPRESSION: Normal anatomy scan Closed cervix measuring 4.3 cm in length *Reference: [facility] Practice Guideline for the performance of Obstetric Ultrasound Examinations, April 27, 2007. Electronically authenticated by: ALLISON COX Date: 04/14/2024 13:22 Dictated By: Allison Cox M.D. Signed By: 04/14/24 1325 DD/ 1322 TD/TT: Commodity Specialist: Procedure Note Radiology, Radiologist, MD - 04/14/2024 [place] [address] Ultrasound Report Signed Patient: FABIOLA LEUNG#: [id number] : 1990Acct:[id number] Age/Sex: 34 / FADM Date: 04/14/24 Loc: [facility] Attending Dr: Aga Mcconnell Ordering Physician: Aga Mcconnell Date of Service: 04/14/24 Procedure(s): US OB anatomy Accession Number(s): [id number] cc: Aga Mcconnell; Patrick Luque M.D. [place] [address] Patient Name: NOHELIA LEUNG MRN: [id number] date: 1990 Sex: F Assigned Patient Location: [facility] Current Patient Location: [facility] Accession/Order Number: [id number] Exam Date: 04/14/2024 11:07 Report Date: 04/14/2024 13:22 At the request of: AGA MCCONNELL Procedure: US OB anatomy EXAMINATION: US OB anatomy, US OB cervical length HISTORY: ANATOMY COMPARISON: No relevant comparison available. TECHNIQUE: Transabdominal sonographic examination was performed for obstetrical and evaluation. FINDINGS: Number: 1 Heart Rate: 140 bpm H.B. /min Amniotic Fluid Volume: Subjectively normal position: Breech presentation, longitudinal lie Placental Location: Anterior, the placental edge is 2.7 cm from theinternal os Cervix Length: 4.34 cm , closed Normal anatomy: Lateral ventricles, cerebellum, posterior fossa, nose,lips, orbits, four-chamber heart, RVOT, LVOT, diaphragm, stomach, kidneys,abdominal cord insertion, bladder, umbilical arteries, three-vessel cord, spine, extremities BIOMETRY: BPD: 4.86 cm; 20 weeks 5 days; 72.60 % HC: 17.93 cm; 20 weeks 3 days 52.80 % AC: 15.49 cm; 20 weeks 5 days; 62 % FL: 3.40 cm; 20 weeks 5 days; 61.60 % EFW:372.31 g; 73.80 %, 13 ounces FL/AC: 21.95 FL/BPD: 69.96 HC/AC: 1.16 GESTATIONAL AGE: Age by EDC: 20 weeks 1 day PAUL by EDC: 2024-08-31 Age by current US: 20 weeks 5 days PAUL by current US: 2024-08-27 US/US OB anatomy IMPRESSION: Normal anatomy scan Closed cervix measuring 4.3 cm in length *Reference: [facility] Practice Guideline for the performance of Obstetric Ultrasound Examinations, April 27, 2007. Electronically authenticated by: ALLISON COX Date: 04/14/2024 13:22 Dictated By: Alliosn Cox M.D. Signed By:04/14/24 1325 DD/ 1322 TD/TT: Commodity Specialist: us Generic External Data Provider [facility] Final Result documented in this encounter Visit Diagnoses Not on filedocumented in this encounter Additional Health Concerns Active Problems Noted Date Diagnosed Date OB Reminders 02/06/2024 Patient on antidepressant monitoring plan 2023 Baseline PHQ-9 03/08/2024 documented as of this encounter Care Teams Stone Driller Relationship Specialty Start Date End Date Shaikh Muhammad MD [address] [place] [address] PCP - General Internal Medicine 12/17/23 08/24/24 Shaikh Muhammad MD [address] [place] [address] PCP - [facility] 01/26/24 Patrick Luque MD [address] [place] [address] PCP - General Family Medicine 08/25/24 documented as of this encounter
--- OUTSIDE RECORDS SUMMARY | 2025-02-16 12:25 | XMS_ITS | Encounter Summary ---
Author Organization [facility] Address [address] [place] [address] Care Team Providers Care Head Of Commission Department Name Role Phone Patrick Luque MD Primary Care Provider Encounter Details Date Type Department Care Team (Latest Contact Info) Description 02/03/2025 Travel Social History Tobacco Use Types Packs/Day Years [...] BCP OB [address] [place] [address] Jose Rafael Crews, DO [address] [place], [place] [address] documented as of this encounter Goals Goal [...] documented as of this encounter Care Teams Head Of Commission Department Relationship Specialty Start Date End Date Patrick Luque MD [address] [place] [address] PCP - General Family Medicine 08/25/24 documented as of this encounter
--- OUTSIDE RECORDS SUMMARY | 2025-02-16 12:25 | XMS_ITS | Encounter Summary ---
Author Organization [facility] Address [address] [facility] [place] [address] Care Team Providers Care Gravure Press Set Up Operator Name Role Phone Shaikh YENNI Muhammad Primary Care Provider Shaikh YENNI Muhammad Unavailable [phone] Patrick Luque MD Primary Care Provider [phone] Encounter Details Date Type Department Care Team (Late st Contact Info) Description 02/03/2024 Abstract [facility] [address] [facility] [place] [address] Jose Rafael Crews, [address] [facility] [address] [place], [place] [id number] Social History Tobacco Use Types Packs/Day Years [...] PM EDT Routine [facility] BCP OB [address] [facility] [place] [phone] Jose Rafael Crews DO [address] [facility] [place] [address] documented as of this encounter Visit Diagnoses Not on filedocumented in this encounter Care Teams Gravure Press Set Up Operator Relationship Specialty Start Date End Date Shaikh Muhammad MD [address] [place] [address] PCP - General Internal Medicine 12/17/23 08/24/24 Shaikh Muhammad MD [address] [place] [address] [facility] 01/26/24 Patrick Luque MD [address] [place] [address] PCP - General Family Medicine 08/25/24 documented as of this encounter
--- OUTSIDE RECORDS SUMMARY | 2025-02-16 12:25 | XMS_ITS | Encounter Summary ---
Author Organization [facility] Address [address] [facility] [place] [address] Care Team Providers Care Paper Steamer Name Role Phone Shaikh YENNI Muhammad Primary Care Provider Shaikh YENNI Muhammad Unavailable [phone] Patrick Luque MD Primary Care Provider [phone] Encounter Details Date Type Department Care Team (Late st Contact Info) Description 05/12/2024 Abstract [facility] [address] [facility] [place] [address] Jose Rafael Crews, [address] [facility] [address] [place], [place] [address] Social History Tobacco Use Types Packs/Day Years [...] EDT Routine [facility] BCP OB [address] [place] [phone] Jose Rafael Crews DO [address] [facility] [place] [address] documented as of this encounter Goals Goal [...] documented as of this encounter Care Teams Paper Steamer Relationship Specialty Start Date End Date Shaikh Muhammad MD [address] [place] [address] PCP - General Internal Medicine 12/17/23 08/24/24 Shaikh Muhammad MD [address] [place] [address] PCP - [place] [employer] 01/26/24 Patrick Luque MD [address] [place] [address] PCP - General Family Medicine 08/25/24 documented as of this encounter
--- OUTSIDE RECORDS SUMMARY | 2025-02-16 12:25 | XMS_ITS | Encounter Summary ---
Author Organization [facility] Address [address] [facility] [place] [address] Care Team Providers Care Production Recorder Name Role Phone Shaikh YENNI Muhammad Primary Care Provider Shaikh YENNI Muhammad Unavailable [phone] Patrick Luqeu MD Primary Care Provider [phone] Encounter Details Date Type Department Care Team (Late st Contact Info) Description 02/10/2024 Abstract [facility] BCP OB [address] [facility] [address] [address] Avelina Duff LPN [address] [facility] [address] [place] [address] Social History Tobacco Use Types [...] EDT Routine [facility] BCP OB [address] [place] [address] Jose Rafael Crews DO [address] [facility] [place] [address] documented as of this encounter Goals Goal Patient Goal Type Associated Problems Recent Progress Patient-Stated? Author Reminders Care Plan OB Reminders No Open Scheduling, Background documented as of this encounter Visit Diagnoses Not on filedocumented in this encounter Additional Health Concerns Active Problems Noted Date Diagnosed Date OB Reminders 02/06/2024 documented as of this encounter Care Teams Production Recorder Relationship Specialty Start Date End Date Shaikh Muhammad MD [address] [place] [address] PCP - General Internal Medicine 12/17/23 08/24/24 Shaikh Muhammad MD [address] [place] [address] PCP - [facility] 01/26/24 Patrikc Luque MD [address] [place] [address] PCP - General Family Medicine 08/25/24 documented as of this encounter
--- OUTSIDE RECORDS SUMMARY | 2025-02-16 12:25 | XMS_ITS ---
Author Organization Unknown Plan of Treatment Patient Care team information Name Category Status Period Participants - - Proposed period not known -
--- OUTSIDE RECORDS SUMMARY | 2025-02-16 12:25 | XMS_ITS | Encounter Summary ---
Author Organization [facility] Address [address] [facility] [place] [address] Care Team Providers Care Internal Medicine Physician Name Role Phone Shaikh YENNI Muhammad Primary Care Provider [phone] Shaikh YENNI Muhammad Unavailable [phone] Patrick Luque MD Primary Care Provider [phone] Encounter Details Date Type Department Care Team (Late st Contact Info) Description 08/18/2024 Abstract [facility] BCP OB [address] [facility] [place] [address] Jose Rafael Crews, [address] [facility] [address] [place], [place] [id number] Social History Tobacco Use Types Packs/Day Years [...] EDT Routine [facility] BCP OB [address] [place] [phone] Jose Rafael Crews DO [address] [facility] [place] [address] documented as of this encounter Goals Goal [...] documented as of this encounter Care Teams Internal Medicine Physician Relationship Specialty Start Date End Date Shaikh Muhammad MD [address] [place] [address] PCP - General Internal Medicine 12/17/23 08/24/24 Shaikh Muhammad MD [address] [place] [address] PCP - [place] [employer] 01/26/24 Patrick Luque MD [address] [place] [address] PCP - General Family Medicine 08/25/24 documented as of this encounter
--- OUTSIDE RECORDS SUMMARY | 2025-02-16 12:25 | XMS_ITS | Encounter Summary ---
Author Organization [facility] Address [address] [facility] [place] [address] Care Team Providers Care Gettering Filament Machine Operator Name Role Phone Shaikh YENNI Muhammad Primary Care Provider [phone] Shaikh YENNI Muhammad Unavailable [phone] Patrick Luque MD Primary Care Provider [phone] Encounter Details Date Type Department Care Team [...] Routine [facility] BCP OB [address] [place] [address] Jose Rafael Crews, DO [address] [place] [address] [place] [address] documented as of this encounter Goals Goal [...] Date/Time Associated Diagnosis Comments US OB GROWTH 05/12/2024 2:32 PM EDT documented in this encounter Results * US OB GROWTH (05/12/2024 2:32 PM EDT) Anatomical Region Laterality Modality Other 05/12/2024 2:32 PM EDT Narrative 05/12/2024 2:34 [place] [address] Ultrasound Report Signed Patient: NOHELIA LEUNG MR#: [id number] : 1990 Acct:[id number] Age/Sex: 34 / F ADM Date: 05/12/24 Loc: [facility] Attending Dr: Jose Rafael Crews D.O. Ordering Physician: Jose Rafael Crews D.O. Date of Service: 05/12/24 Procedure(s): US OB growth Accession Number(s): [id number] cc: Jose Rafael Crews D.O.; Patrick Luque M.D. The [address] [id number] Patient Name: NOHELIA LEUNG MRN: [id number] date: 1990 Sex: F Assigned Patient [facility]: [facility] Current Patient [facility]: [facility] Accession/Order Number: [id number] Exam Date: 05/12/2024 13:04 Report Date: 05/12/2024 14:32 At the request of: JOSE RAFAEL CREWS Procedure: US OB growth EXAMINATION: US OB placenta, US OB growth, [...] days) PAUL by US: 08/30/2024) US/US OB growth IMPRESSION: Normal interval growth Closed cervix measuring 5.5 cm Placental edge is 7.5 cm from the internal cervical os Electronically authenticated by: ALLISON COX Date: 05/12/2024 14:32 Dictated By: Allison Cox M.D. Signed By: 05/12/241433 DD/ 31 TD/TT: Skein Washer: Procedure Note Radiology, Radiologist, MD - 05/12/2024 [place] [address] Ultrasound Report Signed Patient: FABIOLA LEUNG#: [id number] : 1990Acct:[id number] Age/Sex: 34 / FADM Date: 05/12/24 Loc: [facility] Attending Dr: Jose Rafael Crews D.O. Ordering Physician: Jose Rafael Crews D.O. Date of Service: 05/12/24 Procedure(s): US OB growth Accession Number(s): [id number] cc: Jose Rafael Crews D.O.; Patrick Luque M.D. [place] [id number] Patient Name: NOHELIA LEUNG MRN: [id number] date: 1990 Sex: F Assigned Patient Location: [facility] Current Patient Location: [facility] Accession/Order Number: [id number] Exam Date: 05/12/2024 13:04 Report Date: 05/12/2024 14:32 At the request of: JOSE RAFAEL CREWS Procedure: US OB growth EXAMINATION: US OB placenta, US OB growth, [...] days) PAUL by US: 08/30/2024) US/US OB growth IMPRESSION: Normal interval growth Closed cervix measuring 5.5 cm Placental edge is 7.5 cm from the internal cervical os Electronically authenticated by: ALLISON COX Date: 05/12/2024 14:32 Dictated By: Allison Cox M.D. Signed By:05/12/241433 DD/ 31 TD/TT: Skein Washer: us Generic External Data Provider [facility] Final Result documented in this encounter Visit Diagnoses Not on filedocumented in this encounter Additional Health Concerns Active Problems Noted Date Diagnosed Date OB Reminders 02/06/2024 Patient on antidepressant monitoring plan 2023 Baseline PHQ-9 03/08/2024 documented as of this encounter Care Teams Gettering Filament Machine Operator Relationship Specialty Start Date End Date Shaikh Muhammad MD [address] [place] [address] PCP - General Internal Medicine 12/17/23 08/24/24 Shaikh Muhammad MD [address] [place] [address] PCP - [facility] 01/26/24 Patrick Luque MD [address] [place] [address] PCP - General Family Medicine 08/25/24 documented as of this encounter
--- OUTSIDE RECORDS SUMMARY | 2025-02-16 12:25 | XMS_ITS | Clinical Summary ---
Author Organization [facility] Address [id number] [address] [place] [address] Care Team Providers Care Locomotive Electrician Name Role Phone Patrick Luque MD Primary Care Provider [phone] Allergies Active Allergy Reactions Criticality Noted Date Comments Sulfamethoxazole-Trimethoprim 2018 Medications buPROPion XL (WELLBUTRIN XL) 150 mg 24 hr tablet Take 1 tablet (150 mg total) by mouth in the morning. 09/15/2024 Active Active Problems Problem Noted Date Diagnosed Date Sebaceous cyst 03/01/2019 Ruptured sebaceous cyst 02/22/2019 Family History Medical History Relation Name Comments No Known Problems Brother No Known Problems Daughter Diabetes Father Early Father Stroke Father Vision loss Father Lung cancer Maternal Grandfather Breast cancer Mother Early Paternal Grandfather No Known Problems Sister No Known Problems Son Relation Name Status Comments Brother Alive Daughter Alive Father (Age 50) Maternal Grandfather Maternal Grandmother Mother Alive Paternal Grandfather Paternal Grandmother Sister Alive Son Alive Social History Tobacco Use Types Packs/Day Years Used Date Smoking Tobacco: Never Smokeless Tobacco: Never Alcohol Use Standard Drinks/Week Comments Not Currently 0 (1 standard drink = 0.6 oz pur e alcohol) Childcare Answer Date Recorded Childcare Unknown 01/06/2019 Employment Answer Date Recorded Employment Unknown 01/06/2019 Purpose - Life Answer Date Recorded Purpose and direction in life Unknown 02 /05/2021 Comments Unknown Sex and Gender Information Value Date Recorded Sex Assigned at Not on file Legal Sex Female 11:52 AM EDT Gender Identity Not on file Sexual Orientation Not on file Last Filed Vital Signs Vital Sign Reading Time Taken Comments Blood Pressure 113/81 09/29/2024 8:51 AM EST Pulse 77 09/29/2024 8:51 AM EST Temperature 37 C (98.6 F) 02/14/2019 6:48 PM EDT Respiratory Rate 18 02/14/2019 6:48 PM EDT Oxygen Saturation 100% 02/14/2019 6:48 PM EDT Inhaled Oxygen Concentration - - Weight 71.7 kg (158 lb) 10/25/2024 10:14 AM EDT Height 160 cm (5' 3 ) 10/25/2024 10:14 AM EDT Body Mass Index 27.99 10/25/2024 10:14 AM EDT Plan of Treatment Health Maintenance Due Date Last Done Comments Depression Screening 2004 Adult BMI Follow Up Plan 01/04/2010 DTaP,Tdap and Td Vaccines (1 - Tdap) 01/04/2011 Influenza Vaccine 03/28/2025 Adult BMI Screening 10/25/2025 10/25/2024 Tobacco Screening 10/25/2025 10/25/2024 Pap Smear 03/31/2027 03/31/2024 Medical Devices Not on [place] [address] [place] [address] Care Teams Locomotive Electrician Relationship Specialty Start Date End Date Patrick Luque MD PCP - General Family Medicine 02/13/19
--- OUTSIDE RECORDS SUMMARY | 2025-02-16 12:25 | XMS_ITS | Encounter Summary ---
Author Organization [facility] Address [address] [facility] [place] [place] [address] Care Team Providers Care Template Storage Clerk Name Role Phone Shaikh YENNI Muhammad Primary Care Provider [phone] Shaikh YENNI Muhammad Unavailable [phone] Patrick Luque MD Primary Care Provider [phone] Encounter Details Date Type Department Care Team [...] DO [address] [place] [address] [place] [address] [phone] (work) documented as of this encounter Goals [...] Associated Diagnosis Comments US OB CERVICAL LENGTH 04/14/2024 1:22 PM EDT documented in this encounter Results * US OB CERVICAL LENGTH (04/14/2024 1:22 PM EDT) Anatomical Region Laterality Modality Other 04/14/2024 1:22 PM EDT Narrative 04/14/2024 1:24 PM EDT [address] [address] Ultrasound Report Signed Patient: NOHELIA LEUNG MR#: [id number] : 1990 Acct:[id number] Age/Sex: 34 / F ADM Date: 04/14/24 Loc: [facility] Attending Dr: Aga Mcconnell Ordering Physician: Aga Mcconnell Date of Service: 04/14/24 Procedure(s): US OB cervical length Accession Number(s): [id number] cc: Aga Mcconnell; Patrick Luque M.D. [address] [address] Patient Name: NOHELIA LEUNG MRN: [id number] date: 1990 Sex: F Assigned Patient Location: [facility] Current Patient Location: [facility] Accession/Order Number: [id number] Exam Date: 04/14/2024 11:07 Report Date: 04/14/2024 13:22 At the request of: AGA MCCONNELL Procedure: US OB cervical length EXAMINATION: US OB anatomy, US OB cervical [...] PAUL by current US: 2024-08-27 US/US OB cervical length IMPRESSION: Normal anatomy scan Closed cervix measuring 4.3 cm in length *Reference: [employer] Practice Guideline for the performance of Obstetric Ultrasound Examinations, April 27, 2007. Electronically authenticated by: ALLISON COX Date: 04/14/2024 13:22 Dictated By: Allison Cox M.D. Signed By: 04/14/24 1324 DD/ 1322 TD/TT: Machine Buffer: Procedure Note Radiology, Radiologist, MD - 04/14/2024 [place] [address] Ultrasound Report Signed Patient: FABIOLA LEUNG#: [id number] : 1990Acct:[id number] Age/Sex: 34 / FADM Date: 04/14/24 Loc: [facility] Attending Dr: Aga Mcconnell Ordering Physician: Aga Mcconnell Date of Service: 04/14/24 Procedure(s): US OB cervical length Accession Number(s): [id number] cc: Aga Mcconnell; Patrick Luque M.D. [place] [address] Patient Name: NOHELIA LEUNG MRN: [id number] date: 1990 Sex: F Assigned Patient Location: [facility] Current Patient Location: [facility] Accession/Order Number: [id number] Exam Date: 04/14/2024 11:07 Report Date: 04/14/2024 13:22 At the request of: AGA MCCONNELL Procedure: US OB cervical length EXAMINATION: US OB anatomy, US OB cervical [...] PAUL by current US: 2024-08-27 US/US OB cervical length IMPRESSION: Normal anatomy scan Closed cervix measuring 4.3 cm in length *Reference: [employer] Practice Guideline for the performance of Obstetric Ultrasound Examinations, April 27, 2007. Electronically authenticated by: ALLISON COX Date: 04/14/2024 13:22 Dictated By: Allison Cox M.D. Signed By:04/14/24 1324 DD/ 1322 TD/TT: Machine Buffer: us Generic External Data Provider [facility] Final Result documented in this encounter Visit Diagnoses Not on filedocumented in this encounter Additional Health Concerns Active Problems Noted Date Diagnosed Date OB Reminders 02/06/2024 Patient on antidepressant monitoring plan 2023 Baseline PHQ-9 03/08/2024 documented as of this encounter Care Teams Template Storage Clerk Relationship Specialty Start Date End Date Shaikh Muhammad MD [address] [place] [address] PCP - General Internal Medicine 12/17/23 08/24/24 Shaikh Muhammad MD [address] [place] [address] PCP - [facility] 01/26/24 Patrick Luque MD [address] [place] [address] PCP - General Family Medicine 08/25/24 documented as of this encounter
--- OUTSIDE RECORDS SUMMARY | 2025-02-16 12:25 | XMS_ITS | Encounter Summary ---
Author Organization [facility] Address [address] [facility] [place] [address] Care Team Providers Care Outside Plant Cable Engineer Name Role Phone Shaikh YENNI Muhammad Primary Care Provider Shaikh YENNI Muhammad Unavailable [phone] Patrick Luque MD Primary Care Provider [phone] Encounter Details Date Type Department Care Team (Late st Contact Info) Description 02/02/2024 Abstract [facility] BCP OB [address] [facility] [place] [address] Jose Rafael Crews, [address] [facility] [address] [place], [place] [address] Social History Tobacco Use Types Packs/Day Years [...] PM EDT Routine [facility] BCP OB [address] [facility] [place] [address] Jose Rafael Crews DO [address] [facility] [place] [address] documented as of this encounter Visit Diagnoses Not on filedocumented in this encounter Care Teams Outside Plant Cable Engineer Relationship Specialty Start Date End Date Shaikh Muhammad MD [address] [place] [address] PCP - General Internal Medicine 12/17/23 08/24/24 Shaikh Muhammad MD [address] [place] [address] [facility] 01/26/24 Patrick Luque MD [address] [place] [address] PCP - General Family Medicine 08/25/24 documented as of this encounter
--- OUTSIDE RECORDS SUMMARY | 2025-02-16 12:25 | XMS_ITS | Encounter Summary ---
Author Organization [facility] Address [address] [facility] [place] [address] Care Team Providers Care Consultant Education Name Role Phone Shaikh YENNI Muhammad Primary Care Provider [phone] Shaikh YENNI Muhammad Unavailable [phone] Patrick Luque MD Primary Care Provider [phone] Encounter Details Date Type Department Care Team (Late st Contact Info) Description 08/16/2024 Abstract [facility] BCP OB [address] [facility] [place] [address] Jose Rafael Crews, [address] [facility] [address] [place], [place] [address] Social History Tobacco Use Types Packs/Day Years [...] EDT Routine [facility] BCP OB [address] [place] [address] Jose Rafael Crews DO [address] [facility] [place] [address] documented as of this encounter Goals Goal [...] documented as of this encounter Care Teams Consultant Education Relationship Specialty Start Date End Date Shaikh Muhammad MD [address] [place] [address] PCP - General Internal Medicine 12/17/23 08/24/24 Shaikh Muhammad MD [address] [place] [address] PCP - [place] [employer] 01/26/24 Patrick Luque MD [address] [place] [address] PCP - General Family Medicine 08/25/24 documented as of this encounter
[2025-02-16 13:17] LABS: Hematocrit 33.4 % (36.0-48.0); Hemoglobin 10.8 g/dL (12.0-16.0); Immature Granulocytes Abs Auto 0.02 10^3/uL (0.00-0.03); Immature Granulocytes Pct Auto 0.2 % (0.0-0.5); Lymphocytes Absolute Auto 1.3 10^3/uL (1.2-3.8); Mean Corpuscular HGB Conc 32.3 g/dL (29.9-35.2); Mean Corpuscular Hemoglobin 25.1 pg (26.7-34.0); Mean Corpuscular Volume 77.7 fL (81.0-99.0); Platelet Count 261 10^3/uL (150-450); Red Blood Count 4.30 10^6/uL (4.20-5.40); White Blood Count 8.1 10^3/uL (4.0-11.0)
[2025-02-16 14:48] LABS: Cannabinoid Screen Urine NEGATIVE (NEGATIVE); Methamphetamines Screen Urine NEGATIVE (NEGATIVE); Tricyclic Antidepressant Urine NEGATIVE (NEGATIVE)
[2025-02-17 08:09] LABS: Rubella Antibodies, IgG 1.83 index (Immune >0.99)
[2025-02-17 12:09] LABS: Rapid Plasma Reagin, Quant Non Reactive titer (NonRea<1:1)
== END 2025-02-16 12:22 | disposition home or self-care (01) ==
LOC: LAB 12:23
PROVIDERS: PCP Family Medicine; Visit Provider Obstetrics & Gynecology
DX: Z32.01 Encounter for pregnancy test, result positive (principal)
CPT/HCPCS: 36415; 80307; 83036; 85025; 86592; 86762; 86803; 86850; 86900; 86901; 87086; 87340; 87389